=== PATIENT | female | born 1950 | race Hispanic/Latino ===

== ENCOUNTER 2017-05-09 09:40 | Day surgery (SDC) | payer MEDICARE, BC ==
[2017-05-04 12:38] VITALS: BMI 15.4
[2017-05-09 10:15] LABS: ADD MANUAL DIFF? NO
[2017-05-09 10:29] LABS: BASO # 0.04 K/mm3 (0.0-2.0); BASO % 0.5 % (0.0-3.0); EOS % 0.5 % (1.5-5.0); GRAN # 4.39 (1.4-6.5); GRAN % 59.7 % (50.0-68.0); HEMATOCRIT 39.1 % (36.0-48.0); LYMPH # 2.4 (1.2-3.4); LYMPH % 33.1 % (22.0-35.0); MEAN CELL VOLUME 89.7 fL (80.0-105.0); MEAN CORPUSCULAR HEMOGLOBIN 29.8 pg (25.0-35.0); MEAN CORPUSCULAR HGB CONC 33.2 g/dl (31.0-37.0); MEAN PLATELET VOLUME 8.8 fl (7.0-11.0); MONO # 0.5 (0.1-0.6); MONO % 6.2 % (1.0-6.0); PLATELET COUNT 361 10^3/uL (120.0-450.0); RED CELL DISTRIBUTION WIDTH 14.7 % (11.5-14.5); WHITE BLOOD COUNT 7.4 10^3/ul (4.5-11.0)
[2017-05-09 10:37] LABS: INR 1.03 (0.93-1.08); PARTIAL THROMBOPLASTIN TIME 33.9 Seconds (23.7-30.8)
[2017-05-09 10:38] LABS: BLOOD UREA NITROGEN 16 mg/dL (7-21); CALCIUM 9.2 mg/dL (8.4-10.5); CARBON DIOXIDE 26 mmol/L (21-33); CHLORIDE 102 mmol/L (98-107); GFR AFRICAN-AMERICAN > 60; GLUCOSE,RANDOM 87 mg/dL (70-110); POTASSIUM 4.1 mmol/L (3.6-5.0); SODIUM 137 mmol/L (132-148)
--- NOTE | 2017-05-09 10:48 | CP.SDSHP ---
Same Day Surgery H & P - History Proposed Procedure: thyroid Bx. Pre-Op Diagnosis: multiple thyroid nodules. - Previous Medical/Surgical History Pulmonary: Emphysema/COPD, Smoking Endocrine/Metabolic: Thyroid Disease Neuro: Seizure Disorder - Allergies Allergies: Allergies No Known Allergies Allergy (Verified 11/04/16 18:15) - Physical Exam General Appearance: WNL. Vital Signs: Vital Signs 05/09/17 10:25 Temperature 98 F Pulse Rate 72 Respiratory 20 Rate Blood Pressure 161/71 H O2 Sat by Pulse 98 Oximetry Mental Status: Alert & Oriented x3 Neuro: WNL Heart: WNL Lungs: Other (PT HAS DECREASED BREATH SOUNDS BILATERALLY.) - Impression Impression: MULTIPLE THYOD NODULES. - Date & Time Date: 05/09/17 Time: 10:47 Short Stay Discharge - Short Stay Discharge Admitting Diagnosis/Reason for Visit: THYROID NODULE E04.9 Disposition: HOME/ ROUTINE Referrals: Carley Luciano MD [Primary Care Provider] -
[2017-05-09] MEDS ORDERED: Midazolam 2 MG/2 ML VIAL ONE (12:31)
[2017-05-09] MEDS ORDERED: Oxycodone/Acetaminophen 5/325 mg Tab PO PRN (13:58)
[2017-05-09] MEDS ORDERED: Sodium Chloride 0.45% 1,000 ML IV SCH (14:00)
[2017-05-09 15:05] VITALS: PULSE 66; TEMP 98; O2SAT 98
[2017-05-09 15:44] VITALS: BP 155/73; RESP 22
--- NOTE | 2017-05-09 19:16 | US ---
PROCEDURE: Ultrasound-guided right thyroid fine needle aspiration biopsy. CLINICAL HISTORY: Dominant 1.5 cm right thyroid nodule. Evaluate for malignancy. PHYSICIAN(S): Homero Barton MD TECHNIQUE: The relative risks and indications for the procedure were explained to the patient and consent obtained. The patient was placed supine on the stretcher with the neck extended and preliminary sonography of the thyroid performed. This reveal a 1.5 cm heterogeneous nodule at the junction of the isthmus and right thyroid. Additional smaller nodules are seen. The neck was prepped and draped in the usual sterile fashion. Conscious sedation and monitoring were provided throughout the procedure by a nurse. 1% Xylocaine was used to anesthetize the skin and soft tissues at the access site. Three passes with a 22-gauge needle were performed under ultrasound guidance for fine needle aspiration of the 1.5 cm heterogeneous nodule in the right thyroid. The slides were reviewed by pathology and deemed adequate. The patient tolerated the procedure well. IMPRESSION: 1. Ultrasound guided fine needle aspiration of a 1.5 cm heterogeneousnodule at the junction of the isthmus and right thyroid
== END 2017-05-09 15:55 | disposition home or self-care (01) ==
LOC: SDS 09:40
PROVIDERS: ATTEND Radiology Vascular & Interventional Radiology
DX: E04.1 Nontoxic single thyroid nodule (principal)
CPT/HCPCS: 10022; 36415; 80048; 85025; 85610; 85730; 88173; 88305; J2250; J2405; J3010; J7030

== ENCOUNTER 2018-03-28 14:15 | Inpatient (IN) | payer MEDICARE, BC ==
[2018-03-28 14:15] VITALS: BMI 15.4
[2018-03-28] MEDS ORDERED: TraMADol/Apap 37.5/325 mg Tab PO STA (15:45)
--- NOTE | 2018-03-28 15:53 | ED PDOC ---
Arrival/HPI - General Chief Complaint: Upper Extremity Problem/Injury Time Seen by Provider: 03/28/18 14:22 Historian: Patient - History of Present Illness Narrative History of Present Illness (Text): 03/28/18 15:46 This 68 yo female with pmh seizures , presents to this ED c/o left shoulder pain x 3 hours. Patient stated she tripped and hit her left shoulder against a glass jar. Patient denies head injury, neck pain, sob, cp, abdominal pain, syncope, weakness, paresthesias, n/v, or abnormal gait. Time/Duration: Other (see hpi) Quality: Aching Context: Home Past Medical History - Provider Review Nursing Documentation Reviewed: Yes - Tetanus Immunization Tetanus Immunization: Unknown - Cardiac Hx Cardiac Disorders: No - Pulmonary Hx Respiratory Disorders: Yes Hx Chronic Obstructive Pulmonary Disease (COPD): Yes - Neurological Hx Neurological Disorder: Yes Hx Seizures: Yes - HEENT Hx HEENT Disorder: No - Renal Hx Renal Disorder: No - Endocrine/Metabolic Hx Endocrine Disorders: No - Hematological/Oncological Hx Blood Disorders: No - Integumentary Hx Dermatological Disorder: No - Musculoskeletal/Rheumatological Hx Musculoskeletal Disorders: Yes (HX HIP FX) Hx Fractures: Yes - Gastrointestinal Hx Gastrointestinal Disorders: Yes - Genitourinary/Gynecological Hx Genitourinary Disorders: No - Psychiatric Hx Psychophysiologic Disorder: No Hx Emotional Abuse: No Hx Physical Abuse: No Hx Substance Use: No - Surgical History Other/Comment: L HIP - Anesthesia Hx Anesthesia: Yes Hx Anesthesia Reactions: No Hx Malignant Hyperthermia: No - Suicidal Assessment Feels Threatened In Home Enviroment: No Family/Social History - Physician Review Nursing Documentation Reviewed: Yes Family/Social History: Other (noncontributory) Smoking Status: Current Some Days Smoker Hx Alcohol Use: No Hx Substance Use: No Hx Substance Use Treatment: No Allergies/Home Meds Allergies/Adverse Reactions: Allergies No Known Allergies Allergy (Verified 03/28/18 15:20) Home Medications: Home Meds Medication Instructions Recorded Confirmed Lamotrigine [Lamictal] 200 mg PO BID 08/24/12 03/28/18 carBAMazepine [Tegretol] 200 mg PO TID 11/24/15 03/28/18 Review of Systems - Review of Systems Constitutional: Normal. absent: Fatigue, Weight Change, Fevers, Night Sweats Eyes: Normal ENT: Normal Respiratory: Normal Cardiovascular: Normal Gastrointestinal: Normal Genitourinary Female: Normal Musculoskeletal: Other (left shoulder pain, and swelling) Skin: Normal Neurological: Normal Endocrine: Normal Hemo/Lymphatic: Normal Psychiatric: Normal Physical Exam Vital Signs Temp Pulse Resp BP Pulse Ox 03/28/18 15:20 98.9 F 95 H 18 100/67 96 Temperature: Afebrile Blood Pressure: Normal Pulse: Regular Respiratory Rate: Normal Appearance: Positive for: Well-Appearing, Non-Toxic, Comfortable Pain Distress: None Mental Status: Positive for: Alert and Oriented X 3 - Systems Exam Head: Present: Atraumatic, Normocephalic, Other (No raccoon sign. No robison sign) Pupils: Present: PERRL, Other (no hyphema) Extroacular Muscles: Present: EOMI Conjunctiva: Present: Normal Ears: Present: Normal, NORMAL TM, Other (no hemotympanum) Mouth: Present: Moist Mucous Membranes Pharnyx: Present: Normal. No: ERYTHEMA, EXUDATE, TONSILS ENLARGED Neck: Present: Normal Range of Motion. No: Meningeal Signs, Paraspinal Tenderness, Lymphadenopathy Respiratory/Chest: Present: Clear to Auscultation, Good Air Exchange. No: Respiratory Distress, Accessory Muscle Use Cardiovascular: Present: Regular Rate and Rhythm, Normal S1, S2. No: Murmurs Abdomen: No: Tenderness, Distention, Peritoneal Signs Back: Present: Normal Inspection. No: CVA Tenderness Upper Extremity: Present: NORMAL PULSES, Neurovascularly Intact, Capillary Refill < 2s, Other ((+) left prox. humerus is mild tendern and swollen.). No: Cyanosis, Edema, Normal ROM (decreased ROM due to pain) Lower Extremity: Present: Normal Inspection, Normal ROM, Neurovascularly Intact , Capillary Refill < 2 s. No: Edema Neurological: Present: GCS=15, CN II-XII Intact, Speech Normal, Motor Func Grossly Intact, Normal Sensory Function, Normal Cerebellar Funct, Gait Normal, Memory Normal Skin: Present: Warm, Dry, Normal Color. No: Rashes Psychiatric: Present: Alert, Oriented x 3, Normal Insight, Normal Concentration Medical Decision Making ED Course and Treatment: 03/28/18 16:[address] Hedrick, orthopedist, who recommended admission. He also requested to have Neurology clearance for surgery due to Hx. seizures. 03/28/18 16:49 Dr. Baumann spoke with SELENE Delgadillo regarding humerus fracture, and Dr. Hedrick recommendation for surgery. 03/28/18 18:34 Dr. Hedrick recommended NPO after BKF tomorrow morning Re-evaluation Time: 16:51 Reassessment Condition: Re-examined, Improving,but remains with symptoms - EKG Interpretation Interpreted by ED Physician: Yes (NSR @ [address] changes) Comparison: No previous EKG avail. - Medication Orders Current Medication Orders: Discontinued Medications Tramadol/Acetaminophen (Ultracet 37.5/325 Mg) 1 tab PO STAT STA Stop: 03/28/18 15:46 Last Admin: 03/28/18 15:54 Dose: 1 tab MAR Pain Assessment Document 03/28/18 15:54 OCS (Rec: 03/28/18 15:55 OCS [id number]) Pain Reassessment Is this a pain reassessment? Yes Sleep Is patient sleeping during reassessment? No Presence of Pain Presence of Pain Yes Pain Scale Used Pain Scale Used Numeric Location Left, Right or Bilateral Left Upper or Lower Upper Pain Location Body Site Arm Description Description Constant Intensity of Pain at present 10 Aggravating Factors ADL's Disposition/Present on Arrival - Present on Arrival Any Indicators Present on Arrival: No History of DVT/PE: No History of Uncontrolled Diabetes: No Urinary Catheter: No History of Decub. Ulcer: No History Surgical Site Infection Following: None - Disposition Have Diagnosis and Disposition been Completed?: Yes Diagnosis: Closed left humeral fracture Disposition: HOSPITALIZED Disposition Time: 16:51 Condition: STABLE
--- NOTE | 2018-03-28 16:36 | RAD ---
PROCEDURE: Radiographs of the Left Shoulder HISTORY: pain s/p fall COMPARISON: No prior. FINDINGS: BONES: Impacted fracture at the junction of the left humeral head and neck. JOINTS: Preservation of glenohumeral relationship. SOFT TISSUES: Normal. OTHER FINDINGS: None. IMPRESSION: Acute impacted fracture proximal left humerus. Concordant results with the preliminary interpretation rendered by the emergency department physician procedure.
[2018-03-28 17:43] LABS: BASO # 0.02 K/mm3 (0.0-2.0); BASO % 0.1 % (0.0-3.0); GRAN # 16.94 (1.4-6.5); GRAN % 87.1 % (50.0-68.0); LYMPH # 1.5 (1.2-3.4); LYMPH % 7.9 % (22.0-35.0); MEAN CELL VOLUME 88.2 fl (80.0-105.0); MEAN CORPUSCULAR HGB CONC 33.9 g/dl (31.0-37.0); MEAN PLATELET VOLUME 8.4 fl (7.0-11.0); MONO % 4.9 % (1.0-6.0); RBC 4.34 10^6/uL (3.5-6.1); RED CELL DISTRIBUTION WIDTH 13.4 % (11.5-14.5); WHITE BLOOD COUNT 19.5 10^3/ul (4.5-11.0)
[2018-03-28 17:53] LABS: ALB/GLOB RATIO 1.5 (1.1-1.8); ALBUMIN 4.4 g/dL (3.0-4.8); ALT/SGPT 27 U/L (7-56); AST/SGOT 41 U/L (14-36); BLOOD UREA NITROGEN 20 mg/dL (7-21); CALCIUM 9.2 mg/dL (8.4-10.5); GFR AFRICAN-AMERICAN > 60; GFR NON-AFRICAN AMERICAN > 60
[2018-03-28 18:10] LABS: PROTHROMBIN TIME 12.1 SECONDS (9.4-12.5)
[2018-03-28 18:11] LABS: INR 1.06 (0.93-1.08)
--- NOTE | 2018-03-28 18:36 | RAD ---
HISTORY: admission COMPARISON: 12/17/2016 FINDINGS: LUNGS: No active pulmonary disease. PLEURA: No significant pleural effusion identified, no pneumothorax apparent. CARDIOVASCULAR: Normal. OSSEOUS STRUCTURES: Left humeral neck fracture, displaced. VISUALIZED UPPER ABDOMEN: Normal. OTHER FINDINGS: None. IMPRESSION: Displaced left humeral neck fracture.
--- NOTE | 2018-03-28 18:54 | CT ---
CT left shoulder History: Left proximal humeral fracture Comparison: X-ray dated 03/28/2018 Technique: Multiple contiguous axial images were performed through left shoulder without the use of intravenous contrast. Subsequently, sagittal coronal reformatted images were obtained. This CT exam was performed using one or more of the following dose reduction techniques: Automated exposure control, adjustment of the mA and/or kV according to patient size, and/or use of iterative reconstruction technique. Findings: Again identified is a prominent fracture deformity through the proximal left humerus at the level of the neck. 2.3 centimeter medial sided distraction of the distal fracture fragment. There is impaction at the lateral aspect of the fracture site of the distal fracture fragment. Prominent comminuted fracture fragments are noted. Question mild subluxation of the humeral head in relationship to the bony glenoid. If there is concern for pathologic fracture, correlation with MRI may be helpful. Small 3-4 millimeter rounded ossific density at the anterior superior bony glenoid which may represent a small avulsion fragment. Acromioclavicular joint space appears preserved. Incidentally noted is a prominent 1.4 centimeter nodule/lesion seen in the superior aspect of the left lower lobe of the lung on series 3, image 44. This is of uncertain clinical etiology. Underlying neoplasm cannot be excluded. Correlation with chest CT and/or PET-CT would be helpful for further evaluation of this lesion. Emphysematous changes in the lung solraes. Impression: 1. Incidentally noted is a prominent 1.4 centimeter nodule/lesion seen in the superior aspect of the left lower lobe of the lung on series 3, image 44. This is of uncertain clinical etiology. Underlying neoplasm cannot be excluded. Correlation with chest CT and/or PET-CT would be helpful for further evaluation of this lesion. 2. Again identified is a prominent fracture deformity through the proximal left humerus at the level of the neck. 2.3 centimeter medial sided distraction of the distal fracture fragment. There is impaction at the lateral aspect of the fracture site of the distal fracture fragment. Prominent comminuted fracture fragments are noted. Question mild subluxation of the humeral head in relationship to the bony glenoid. If there is concern for pathologic fracture, correlation with MRI may be helpful. 3. Small 3-4 millimeter rounded ossific density at the anterior superior bony glenoid which may represent a small avulsion fragment.
[2018-03-28] MEDS ORDERED: Iohexol 350 MG/100 ML VIAL ONE (23:30)
[2018-03-28 23:53] LABS: BASO # 0.01 K/mm3 (0.0-2.0); BASO % 0.1 % (0.0-3.0); EOS % 0.1 % (1.5-5.0); GRAN # 9.92 (1.4-6.5); GRAN % 79.7 % (50.0-68.0); HEMOGLOBIN 12.3 g/dL (12.0-16.0); LYMPH # 1.5 (1.2-3.4); LYMPH % 12.4 % (22.0-35.0); MEAN CELL VOLUME 89.1 fl (80.0-105.0); MEAN CORPUSCULAR HEMOGLOBIN 29.9 pg (25.0-35.0); MEAN CORPUSCULAR HGB CONC 33.5 g/dl (31.0-37.0); MEAN PLATELET VOLUME 8.6 fl (7.0-11.0); MONO % 7.7 % (1.0-6.0); RBC 4.12 10^6/uL (3.5-6.1); RED CELL DISTRIBUTION WIDTH 13.5 % (11.5-14.5); WHITE BLOOD COUNT 12.4 10^3/ul (4.5-11.0)
[2018-03-29 00:02] LABS: ALB/GLOB RATIO 1.4 (1.1-1.8); ALBUMIN 4.2 g/dL (3.0-4.8); ALT/SGPT 27 U/L (7-56); AST/SGOT 40 U/L (14-36); BLOOD UREA NITROGEN 26 mg/dL (7-21); CALCIUM 8.9 mg/dL (8.4-10.5); GFR AFRICAN-AMERICAN > 60; GFR NON-AFRICAN AMERICAN > 60; HDL CHOLESTEROL 74 mg/dL (29-60)
--- NOTE | 2018-03-29 00:03 | CT ---
EXAM: CT Head Without Intravenous Contrast EXAM DATE/TIME: 03/28/2018 11:18 PM CLINICAL HISTORY: 68 years old, female; Signs and symptoms; Weakness, extremity; Additional info: Code stroke TECHNIQUE: Axial computed tomography images of the head/brain without intravenous contrast. All CT scans at this facility use one or more dose reduction techniques, viz.: automated exposure control; ma/kV adjustment per patient size (including targeted exams where dose is matched to indication; i.e. head); or iterative reconstruction technique. Coronal and sagittal reformatted images were created and reviewed. COMPARISON: Prior head CT of 2016-11-04 20:55 FINDINGS: BRAIN: Areas of hypodensity in the white matter bilaterally, nonspecific in appearance, but most likely representing chronic small vessel ischemic changes, in a patient of this age. No significant acute abnormality identified. No acute hemorrhage seen within the brain. No acute extra-axial fluid collections visualized. No evidence of significant mass effect within the brain. No CT findings to suggest an acute, large territorial infarct, however, small or early acute infarcts may not be visible on CT. VENTRICLES: No evidence of significant hydrocephalus. BONES/JOINTS: No acute fractures or other acute bony abnormality noted. SOFT TISSUES: No acute abnormality of the visualized soft tissues is seen. VASCULATURE: Atherosclerotic calcification. SINUSES: Visualized paranasal sinuses appear clear. MASTOID AIR CELLS: Mastoid air cells appear clear. IMPRESSION: - No acute findings seen within the brain. - See above for remaining findings.
[2018-03-29 00:04] LABS: INR 1.06 (0.93-1.08); PARTIAL THROMBOPLASTIN TIME 32.5 Seconds (25.1-36.5); PROTHROMBIN TIME 12.1 SECONDS (9.4-12.5)
[2018-03-29 00:09] LABS: LDL CHOLESTEROL 100 mg/dL (0-129)
[2018-03-29 00:11] LABS: TROPONIN I < 0.01 ng/mL
[2018-03-29] MEDS ORDERED: HYDROmorphone 0.5 mg/0.5 ml ISec IVP PRN (00:36)
[2018-03-29] MEDS ORDERED: Naloxone 0.4 mg/ml Inj (Adult) IVP ONE (00:41)
--- NOTE | 2018-03-29 01:10 | CT ---
EXAM: CT Angiography Head With Intravenous Contrast CLINICAL HISTORY: The patient age is 68 years old and is female; Signs and symptoms; Weakness; Additional info: Code stroke [facility] and description[facility] code stroke TECHNIQUE: Axial computed tomographic angiography images of the head with intravenous contrast using CT angiography protocol. All CT scans at this facility use one or more dose reduction techniques, viz.: automated exposure control; ma/kV adjustment per patient size (including targeted exams where dose is matched to indication; i.e. head); or iterative reconstruction technique. MIP reconstructed images were created and reviewed. CONTRAST: 96 mL of OMNI 350 administered intravenously. COMPARISON: CT - ANGIO CHEST PE PROTOCOL 2016-12-17 18:47 FINDINGS: Right internal carotid artery: There is atherosclerosis of the bilateral internal carotid arteries, with approximately 50% stenosis of the bilateral cavernous internal carotid arteries. No aneurysm. Right anterior cerebral artery: No occlusion or significant stenosis. No aneurysm. Right middle cerebral artery: At the right MCA trifurcation, there is a small vascular projection measuring 0.2 x 0.1 cm, suggestive of an infundibulum or small aneurysm. No occlusion or significant stenosis. Right posterior cerebral artery: No occlusion or significant stenosis. No aneurysm. Right vertebral artery: There is atherosclerosis and approximately 50% stenosis of the distal right vertebral artery. Left internal carotid artery: See above. Left anterior cerebral artery: No occlusion or significant stenosis. No aneurysm. Left middle cerebral artery: No occlusion or significant stenosis. No aneurysm. Left posterior cerebral artery: No occlusion or significant stenosis. No aneurysm. Left vertebral artery: There is mild atherosclerosis of the distal left vertebral artery, without hemodynamically significant stenosis. Basilar artery: No significant stenosis. No occlusion. No aneurysm. IMPRESSION: 1. There is atherosclerosis and approximately 50% stenosis of the distal right vertebral artery. 2. There is atherosclerosis of the bilateral internal carotid arteries, with approximately 50% stenosis of the bilateral cavernous internal carotid arteries. 3. At the right MCA trifurcation, there is a small vascular projection measuring 0.2 x 0.1 cm, suggestive of an infundibulum or small aneurysm. A follow-up CTA is recommended. 4. Additional findings described above. EXAM: CT Angiography Neck With Intravenous Contrast EXAM DATE/TIME: 03/28/2018 11:17 PM CLINICAL HISTORY: The patient age is 68 years old and is female; Signs and symptoms; Weakness; Additional info: Code stroke [facility] and [facility] code stroke TECHNIQUE: Axial computed tomographic angiography images of the neck with intravenous contrast using CT angiography protocol. All CT scans at this facility use one or more dose reduction techniques, viz.: automated exposure control; ma/kV adjustment per patient size (including targeted exams where dose is matched to indication; i.e. head); or iterative reconstruction technique. MIP reconstructed images were created and reviewed. CONTRAST: 96 mL of OMNI 350 administered intravenously. COMPARISON: CT - ANGIO CHEST PE PROTOCOL 2016-12-17 18:47 FINDINGS: VASCULATURE: Right common carotid artery: There is mild stenosis of the distal right common carotid artery. No dissection or occlusion. Right internal carotid artery: There is atherosclerosis of the right carotid bifurcation, with approximately 40% stenosis of the proximal right internal carotid artery. Right external carotid artery: No occlusion. Right vertebral artery: Venous enhancement limits evaluation of the bilateral vertebral arteries, without significant stenosis or occlusion. Left common carotid artery: There is mild stenosis of the distal left common carotid artery. Left internal carotid artery: There is atherosclerosis of the proximal left internal carotid artery, with approximately 60% stenosis. No dissection or occlusion. Left external carotid artery: No occlusion. Left vertebral artery: See above. Other vasculature: There is atherosclerosis of the aortic arch. NECK: Bones/joints: Spondylosis is identified at multiple cervical levels. Thyroid: There is heterogeneous density of the thyroid gland, with multiple subcentimeter hypodense nodules or cysts. Lung apices: Within the superior segment of the left lower lobe, there is a 1.2 cm spiculated nodule. Malignancy is the diagnosis of exclusion. Centrilobular emphysematous changes are identified within the lungs. Within the right upper lobe on series 4 image 144, there is a 6 mm nodule. A few additional small nodules are identified within the lungs. CAROTID STENOSIS REFERENCE USING NASCET CRITERIA: % ICA stenosis = (1 - narrowest ICA diameter/diameter of distal cervical ICA) x 100. Mild - <50% stenosis. Moderate - 50-69% stenosis. Severe - 70-94% stenosis. Near occlusion - 95-99% stenosis. Occluded - 100% stenosis. IMPRESSION: 1. There is atherosclerosis of the proximal left internal carotid artery, with approximately 60% stenosis. There is mild stenosis of the distal left common carotid artery. 2. There is atherosclerosis of the right carotid bifurcation, with approximately 40% stenosis of the proximal right internal carotid artery. There is mild stenosis of the distal right common carotid artery. 3. Within the superior segment of the left lower lobe, there is a 1.2 cm spiculated nodule. Malignancy is the diagnosis of exclusion. Additional lung nodules are visualized. PET/CT is recommended. 4. There is heterogeneous density of the thyroid gland, with multiple subcentimeter hypodense nodules or cysts. 5. Incidental/non-acute findings are described above.
[2018-03-29 01:31] LABS: ARTERIAL BLOOD GAS HCO3 26.6 mmol/L (21-28); ARTERIAL BLOOD GAS PCO2 47 mm/Hg (35-45); ARTERIAL BLOOD GAS PH 7.36 (7.35-7.45)
--- NOTE | 2018-03-29 02:40 | PCM.RRT ---
<Alexey Nuñez - Last Filed: 03/29/18 04:57> SENIOR PROJECT ENGINEER Nurse Assessment - Situation Date: 03/28/18 Time SENIOR PROJECT ENGINEER was called: 23:11 SENIOR PROJECT ENGINEER Responder Arrival Time: 23:12 SENIOR PROJECT ENGINEER Location:: [address] [place] [address] Room Number: [id number] SENIOR PROJECT ENGINEER Reason for Call: Change in Mental Status SENIOR PROJECT ENGINEER Called By: Other Disciplines - IV IV Inserted during SENIOR PROJECT ENGINEER?: No - Respiratory Oxygen Delivery Method: Nasal Cannula @L/min Oxygen Flow Rate: 2 Received Nebulizer Treatments:: No Was the Patient Ventilated with Bag/Mask 100% O2?: No Secretions Suctioned?: No Was the Patient Intubated?: No Was the Patient Placed on a Ventilator?: No - Diagnostic Test Ordered EKG: Yes Chest X-Ray: Yes CT Scan: Yes (head/neck) - Stat Labs Ordered SENIOR PROJECT ENGINEER Stat Labs Ordered: CBC, PT/PTT, TROPONIN, ABG CPR started during SENIOR PROJECT ENGINEER?: No - Vital Signs Vital Sign: Rapid Response Vital Sign Blood Pressure 183/82 Pulse Rate 80 Respiratory Rate 18 Temperature 98.9 F Oxygen Saturation 98 - Finger Stick Blood Glucose Finger Stick Blood Glucose: 143 - [place] Coma Scale Coma Scale Eye Opening: To pain Coma Scale Motor: Movement to pain stimulus Coma Scale Verbal: Inappropriate words - Time SENIOR PROJECT ENGINEER Ended Time SENIOR PROJECT ENGINEER Ended: 23:30 - Vital Signs at end of SENIOR PROJECT ENGINEER Vital Signs at end of SENIOR PROJECT ENGINEER: Rapid Response End Vital Sign Blood Pressure 133/75 Pulse Rate 80 Respiratory Rate 18 Temperature 98.9 F O2 Sat by Pulse Oximetry 98 - Recommendations Notifications: Attending Physician, Consultations I.Reason for SENIOR PROJECT ENGINEER - A) Acute Change in Patient: (Select all that apply): Staff member or family is worried about patient Subjective: RR was called on patient for unresponsiveness. Patient seen and evaluated in room. Patient noted to be somnolent with minimal spontaneous movement of all four extremities, limited response to verbal stimuli and incomprehensible sounds. Vital signs were taken and noted to be BP 183/82, HR 87, O2 96% on 3LO2 , and temperature of 98.9F. Patient was noted to have poor response to initial questioning and examination and CODE STROKE was called on patient for new onset AMS. Sternal rub was provided with improvement in mentation. Patient was noted to be more alert and awake. Able to respond to verbal stimuli with comprehensible communication. Patient VSS continued to be stable. EKG was preformed showing NSR, rate of 83 bpm, T wave inversions in V1, V2, without ST segment elevation or depression. Head CT was ordered which resulted as negative for stroke per Vrad report. Blood was drawn and CBC, CMP, Ammonia, ABG with shock panel, blood cultures were sent to lab. Patient was given aspirin 81mg, carbamazepine, lamotrigine, and narcan. Patient when asked was alert and oriented x3 s/p sternal rub. Patient denied chest pain, shortness of breath, abodminal pain, chills, weakness, focal deficits. Attempts were made to contact primary care physician, message left with service. - Neurological Status (Select all that apply): Alert - Respiratory Oxygen Delivery Method: Nasal Cannula @L/min Oxygen Flow Rate: 2 - Head Head Exam: ATRAUMATIC, NORMAL INSPECTION, NORMOCEPHALIC - Respiratory Exam Respiratory Exam: Clear to Ausculation Bilateral, NORMAL BREATHING PATTERN. absent: Rhonchi, Wheezes - Cardiovascular Exam Cardiovascular Exam: REGULAR RHYTHM, +S1, +S2 - GI/Abdominal Exam GI & Abdominal Exam: Soft, Normal Bowel Sounds. absent: Tenderness - Neurological Exam Neurological Exam: Alert, Awake, Oriented x3 - Extremities Exam Extremities Exam: absent: Calf Tenderness, Pedal Edema Plan - Assessment of Findings&Treatment Plan 68 yo female with past medical history of seizures on anti-epileptic therapy, not on medication while in hospital, found to have limited responsiveness to nurse. RR was called. Patient was evaluated and noted to have improved mentation s/p sternal rub. Patient initially drowsy, poor verbal, moving all extremities spontaneously. - Head CT: negative for acute stroke - NO antithrombotic therapy provided due to negative Head CT results and resolution of symptoms - EKG unremarkable - CBC, CMP, Ammonia, ABG shock panel, blood culture - ASA 81 - Restart anti-epileptic therapy from home, lamictal and carbamazepine - Narcan .4mg - Neuro checks Q4h - Primary care physician contacted and message left with service Impression: subclinical seizure v. possible TIA NIHSS Scale ([place]) Time Performed: 23:15 NIHSS Stroke Scale - Date/Time Evaluation Performed Date Performed: 03/28/18 Time Performed: 23:15 - How Severe is the Stoke Visual: 3=Bilateral Facial: 0=Normal Motor Arm - Left: NA - Amputation, joint fusion (left arm fracture, immobilized in orthopedic sling) Motor Arm - Right: 4=No movement Motor Leg - Left: 0=No drift Motor Leg - Right: 0=No drift Limb Ataxia: 2=Present both Sensory: 2=Severe to total loss Best Language: 3=Mute Dysarthia: 2=Severe, near unintelligible or worse Extinction & Inattention (Neglect): 2=Profound neglect(does not recognize own hand or orients to one side) Severity Of Stroke: 16-20=Moderate/Severe Stroke <Meaghan Alas - Last Filed: 03/29/18 05:15> SENIOR PROJECT ENGINEER Nurse Assessment - Vital Signs Vital Sign: Rapid Response Vital Sign Blood Pressure 183/82 Pulse Rate 80 Respiratory Rate 18 Temperature 98.9 F Oxygen Saturation 98 - Vital Signs at end of SENIOR PROJECT ENGINEER Vital Signs at end of SENIOR PROJECT ENGINEER: Rapid Response End Vital Sign Blood Pressure 133/75 Pulse Rate 80 Respiratory Rate 18 Temperature 98.9 F O2 Sat by Pulse Oximetry 98 Attending/Attestation - Attestation I have personally seen and examined this patient.: Yes I have fully participated in the care of the patient.: Yes I have reviewed all pertinent clinical information, including history, physical exam and plan: Yes Notes (Text): 03/29/18 05:13 Agree with documentation and orders.
[2018-03-29 05:10] LABS: URINE APPEARANCE CLEAR (CLEAR); URINE BILIRUBIN NEGATIVE (NEGATIVE); URINE BLOOD NEGATIVE (NEGATIVE); URINE COLOR YELLOW (YELLOW); URINE GLUCOSE (UA) NEGATIVE (NEGATIVE); URINE LEUKOCYTE ESTERASE NEGATIVE Leu/uL (NEGATIVE); URINE PROTEIN 100 mg/dL (<30 mg/dL); URINE UROBILINOGEN 0.2 E.U./dL (<1 E.U./dL)
[2018-03-29 05:59] LABS: URINE EPITHELIAL CELLS 0 - 2 /hpf (0-5); URINE RBC 0 - 2 /hpf (0-2); URINE WBC 0 - 2 /hpf (0-6)
[2018-03-29 06:47] LABS: BARBITURATES, UR NEGATIVE (NEGATIVE); BENZODIAZEPINES, UR NEGATIVE (NEGATIVE); OPIATES, UR NEGATIVE (NEGATIVE); PHENCYCLIDINE, UR NEGATIVE (NEGATIVE)
[2018-03-29] MEDS: Albuterol-Ipratrop 3 mg / 0.5 (3 ml) UD IH SCH ×2 (07:18→13:28)
--- NOTE | 2018-03-29 08:16 | RAD ---
PROCEDURE: CHEST RADIOGRAPH, 1 VIEW HISTORY: Code Stroke COMPARISON: March 28, 2018. Time of the most recent examination: 18:28 FINDINGS: LUNGS: Interstitial lung disease, mild. PLEURA: No pneumothorax or pleural fluid seen. CARDIOVASCULAR: Normal. OSSEOUS STRUCTURES: Go impacted distracted proximal right humeral fracture. No significant abnormalities. VISUALIZED UPPER ABDOMEN: Normal. OTHER FINDINGS: None. IMPRESSION: No active disease.No significant interval change compared to the prior examination(s).
--- NOTE | 2018-03-29 08:26 | CARD ---
APPROVED REPORT EKG Measurement Heart [id number] <Conclusion> Normal sinus rhythm NSSTW changes PRWP V 1 - 6
[2018-03-29] MEDS ORDERED: levETIRAcetam 1,000 MG in Sodium Chloride 0.9% 100 ML IV ONE (11:45)
[2018-03-29 12:38] LABS: HEMOGLOBIN 11.6 g/dL (12.0-16.0); MEAN CELL VOLUME 89.1 fl (80.0-105.0); MEAN CORPUSCULAR HEMOGLOBIN 29.3 pg (25.0-35.0); MEAN CORPUSCULAR HGB CONC 32.9 g/dl (31.0-37.0); MEAN PLATELET VOLUME 8.7 fl (7.0-11.0); RBC 3.96 10^6/uL (3.5-6.1); RED CELL DISTRIBUTION WIDTH 13.5 % (11.5-14.5); WHITE BLOOD COUNT 11.2 10^3/ul (4.5-11.0)
[2018-03-29 12:51] LABS: ALB/GLOB RATIO 1.4 (1.1-1.8); ALBUMIN 3.9 g/dL (3.0-4.8); ALT/SGPT 32 U/L (7-56); AST/SGOT 36 U/L (14-36); BLOOD UREA NITROGEN 32 mg/dL (7-21); CALCIUM 8.8 mg/dL (8.4-10.5); GFR AFRICAN-AMERICAN > 60; GFR NON-AFRICAN AMERICAN > 60
--- NOTE | 2018-03-29 14:05 | CARD ---
APPROVED REPORT EKG Measurement Heart [id number] <Conclusion> Normal sinus rhythm PRWP LVH by voltage
--- NOTE | 2018-03-29 15:30 | HP ---
The patient is a 68-year-old female. CHIEF COMPLAINT: Fall, pain in the left shoulder. HISTORY OF PRESENT ILLNESS: Ms. Leann Helm is a 68-year-old my private patient with past medical history of seizures, stable, getting treatment from Dr. Soliman, came to the emergency room complaining of left shoulder pain from 3 days. Patient stated that she tripped and hit her left shoulder against a glass jar. Patient denies any head injury. No neck pain. No shortness of breath. No chest pain. No abdominal pain. No syncopal, weakness, paresthesia, nausea or vomiting. Abnormal gait, but range of motion on the left shoulder is decreased. PAST MEDICAL HISTORY: COPD, seizures, history of fractures. FAMILY HISTORY: Father and mother, noncontributory. HABITS: Currently smoking. Alcohol, no. Substance abuse, no. ALLERGIES: PATIENT IS NOT ALLERGIC WITH ANY MEDICATIONS. HOME MEDICATIONS: Lamictal, Tegretol and inhalers. REVIEW OF SYSTEMS: Patient was seen and examined on the bedside in the emergency room. No weight change. No night sweats. No fatigue. No blurring of vision. No nasal breathing or shortness of breath. No chest pain. No palpitation. Left shoulder pain and swelling. Range of motion is decreased. No fever. No chills. PHYSICAL EXAMINATION: VITAL SIGNS: Temperature 98.9, pulse 95, respiratory rate 18, blood pressure 100/67, pulse oximetry 96. HEENT: Head normocephalic, atraumatic. Eyes PERRLA. Extraocular muscles intact. Conjunctivae clear. Nose patent. Mucous membranes moist. NECK: Supple. No carotid bruit, JVD or thyromegaly. CHEST: Bilaterally symmetrical. HEART: S1, S2 positive. LUNGS: Clear to auscultation. ABDOMEN: Soft, nontender. No organomegaly. No distension. EXTREMITIES: Normal pulses. Left shoulder range of motion decreased. Humerus is mildly tender and swollen. No cyanosis. No edema. LABORATORY DATA: White blood cell is 12.4 and on admission, it was 19.4; hemoglobin 12.3, hematocrit 36.7, platelets 380. Sodium 139, potassium 4, BUN 20, creatinine 0.8 and glucose 143. ASSESSMENT AND PLAN: Ms. Leann Helm is a 68-year-old lady with leukocytosis, blood urea nitrogen, hyperglycemia, hyperphosphatemia, abnormal liver function test and hypercholesterolemia, came with fall, mechanical, left shoulder pain. CAT scan of the head done, reviewed by me. No acute findings seen within the brain. Chest x-ray done. Head and neck CT done, results are pending. Upper extremity CT done. Shoulder x-ray done. A 1.4 cm nodule/lesion seen in the superior aspect of the left lower lobe of the lung, underlying neoplasm cannot be excluded, especially patient has a history of heavy smoking for longtime. Chest CT or PET scan is needed for further evaluation. There is a prominent fracture deformity through the proximal left humerus at the level of the neck, 2 to 3 cm medial-sided destruction of the distal fracture fragment. There is at the lateral aspect of the fracture site of the distal femur fragment, prominent comminuted fracture fragments are noted, question mild subluxation of the humeral head relationship to the bony glenoid. If there is a concern of orthopedic fracture, correlation with MRI will necessary, small 3 to 4 cm rounded ossified density at the anterior superior bony glenoid, which looks avulsive fragments. We call Orthopedic consult. Neurologist is on the case. We will restart old medication. Gastrointestinal and deep vein thrombosis prophylaxis. Repeat labs. We will follow up. Carley Luciano MD MTDD
--- NOTE | 2018-03-29 15:48 | CP.PCM.CON ---
History of Present Illness - History of Present Illness History of Present Illness: MICU Consult Note Reason for consult: seizure episode HPI Patient is 68yo female with PMHx of COPD, Smoking, Seizure disorder, cachexia, presents to the hospital L humerus fracture. Pt fell and hit her arm against a glass jar. Pt was admitted to the floor. Last night patient had an episode of altered mental status, NO tonic-clonic activity noted, AMS self resolved, CTH negative. This morning as per nursing staff patient had an episode of seizure activity, given Ativan 1mg IV. Currently the patient is AAOx3, NAD, comofrtable HD stable, protecting airway. PMHx as above PSHx as above Meds as per EMR ROS as above FHx NC Social smokes 1 pk per day, denies etoh, drug use Review of Systems - Review of Systems Review of Systems: as per HPI Past Patient History - Tetanus Immunizations Tetanus Immunization: Unknown - Past Medical History & Family History Past Medical History?: Yes - Past Social History Smoking Status: Heavy Smoker > 10 Cigarettes Daily - CARDIAC Hx Cardiac Disorders: No - PULMONARY Hx Respiratory Disorders: Yes Hx Chronic Obstructive Pulmonary Disease (COPD): Yes - NEUROLOGICAL Hx Neurological Disorder: Yes Hx Seizures: Yes - HEENT Hx HEENT Problems: No - RENAL Hx Chronic Kidney Disease: No - ENDOCRINE/METABOLIC Hx Endocrine Disorders: No - HEMATOLOGICAL/ONCOLOGICAL Hx Blood Disorders: No - INTEGUMENTARY Hx Dermatological Problems: No - MUSCULOSKELETAL/RHEUMATOLOGICAL Hx Musculoskeletal Disorders: Yes (HX HIP FX) Hx Falls: Yes Hx Fractures: Yes - GASTROINTESTINAL Hx Gastrointestinal Disorders: Yes - GENITOURINARY/GYNECOLOGICAL Hx Genitourinary Disorders: No - PSYCHIATRIC Hx Psychophysiologic Disorder: No Hx Emotional Abuse: No Hx Physical Abuse: No - SURGICAL HISTORY Other/Comment: L HIP - ANESTHESIA Hx Anesthesia: Yes Hx Anesthesia Reactions: No Hx Malignant Hyperthermia: No Meds Allergies/Adverse Reactions: Allergies Allergy/AdvReac Type Severity Reaction Status Date / Time No Known Allergies Allergy Verified 03/28/18 15:20 - Medications Medications: Current Medications Acetaminophen (Tylenol 325mg Tab) 650 mg PO Q4H PRN PRN Reason: Fever >100.4 F Acetaminophen (Tylenol 325mg Tab) 650 mg PO Q4H PRN PRN Reason: Pain, moderate (4-7) Albuterol/Ipratropium (Duoneb 3 Mg/0.5 Mg (3 Ml) Ud) 3 ml IH [id number] [facility] Last Admin: 03/29/18 13:28 Dose: 3 ml Aspirin (Aspirin Chewable) 81 mg PO DAILY [facility] Last Admin: 03/29/18 11:12 Dose: 81 mg Carbamazepine (Tegretol) 200 mg PO TID SONAL PRN Reason: Protocol Last Admin: 03/29/18 10:29 Dose: 200 mg Famotidine (Pepcid) 20 mg PO HS SONAL Hydromorphone HCl (Dilaudid) 0.5 mg IVP Q4H PRN PRN Reason: Pain, Mild (1-3) Levetiracetam (Keppra 500mg Ivpb) 500 mg in 100 mls @ 460 mls/hr IVPB Q12 SONAL Lamotrigine (Lamictal) 200 mg PO BID [facility] Last Admin: 03/29/18 10:29 Dose: 200 mg Lorazepam (Ativan) 0.5 mg IVP Q6H PRN; Protocol PRN Reason: Seizure activity Ondansetron HCl (Zofran Inj) 4 mg IVP Q6 PRN PRN Reason: Nausea/Vomiting Physical Exam - Constitutional Appears: Non-toxic, No Acute Distress, Older Than Stated Age, Cachectic - Eye Exam Eye Exam: Normal appearance - ENT Exam ENT Exam: Mucous Membranes Moist - Respiratory Exam Respiratory Exam: Clear to Auscultation Bilateral, NORMAL BREATHING PATTERN - Cardiovascular Exam Cardiovascular Exam: REGULAR RHYTHM, +S1, +S2 - GI/Abdominal Exam GI & Abdominal Exam: Normal Bowel Sounds, Soft - Extremities Exam Extremities exam: Positive for: normal inspection - Neurological Exam Neurological exam: Alert, CN II-XII Intact, Oriented x3 - Skin Skin Exam: Normal Color, Warm Results - Vital Signs Recent Vital Signs: Last Vital Signs Temp 98.9 F 03/29/18 06:00 Pulse 88 03/29/18 07:21 Resp 20 03/29/18 06:00 BP 114/68 03/29/18 06:00 Pulse Ox 96 03/29/18 06:00 - Labs Result Diagrams: 03/29/18 12:10 03/29/18 12:10 Labs: Laboratory Results - last 24 hr 03/28/18 03/28/18 03/28/18 17:20 17:20 17:20 WBC 19.5 H D RBC 4.34 Hgb 13.0 Hct 38.3 MCV 88.2 MCH 30.0 MCHC 33.9 RDW 13.4 Plt Count 378 MPV 8.4 Gran % 87.1 H Lymph % (Auto) 7.9 L [place] % (Auto) 4.9 Eos % (Auto) 0.0 L Baso % (Auto) 0.1 Gran # 16.94 H Lymph # (Auto) 1.5 [place] # (Auto) 1.0 H Eos # (Auto) 0.0 Baso # (Auto) 0.02 PT 12.1 INR 1.06 APTT 34.0 pCO2 pO2 HCO3 ABG pH ABG Total CO2 ABG O2 Saturation ABG Base Excess ABG Potassium Glucose Lactate FiO2 Sodium Potassium Chloride Carbon Dioxide Anion Gap BUN Creatinine Est GFR ( Amer) Est GFR (Non-Af Amer) POC Glucose (mg/dL) Random Glucose Lactic Acid Calcium Phosphorus Magnesium Total Bilirubin AST ALT Alkaline Phosphatase Ammonia Troponin I Total Protein Albumin Globulin Albumin/Globulin Ratio Triglycerides Cholesterol LDL Cholesterol Direct HDL Cholesterol Procalcitonin Arterial Blood Potassium Urine Color Urine Appearance Urine pH Ur Specific [place] Urine Protein Urine Glucose (UA) Urine Ketones Urine Blood Urine Nitrate Urine Bilirubin Urine Urobilinogen Ur Leukocyte Esterase Urine RBC Urine WBC Ur Epithelial Cells Urine Opiates Screen Urine Methadone Screen Ur Barbiturates Screen Carbamazepine 8 Ur Phencyclidine Scrn Ur Amphetamines Screen U Benzodiazepines Scrn U Oth Cocaine Metabols U Cannabinoids Screen Alcohol, Quantitative Blood Type Antibody Screen BBK History Checked 03/28/18 03/28/18 03/28/18 17:20 17:20 23:12 WBC RBC Hgb Hct MCV MCH MCHC RDW Plt Count MPV Gran % Lymph % (Auto) [place] % (Auto) Eos % (Auto) Baso % (Auto) Gran # Lymph # (Auto) [place] # (Auto) Eos # (Auto) Baso # (Auto) PT INR APTT pCO2 pO2 HCO3 ABG pH ABG Total CO2 ABG O2 Saturation ABG Base Excess ABG Potassium Glucose Lactate FiO2 Sodium 139 Potassium 4.2 Chloride 103 Carbon Dioxide 25 Anion Gap 16 BUN 20 Creatinine 0.7 Est GFR ( Amer) > 60 Est GFR (Non-Af Amer) > 60 POC Glucose (mg/dL) 143 H Random Glucose 109 Lactic Acid Calcium 9.2 Phosphorus Magnesium Total Bilirubin 0.3 AST 41 H ALT 27 Alkaline Phosphatase 96 Ammonia Troponin I Total Protein 7.4 Albumin 4.4 Globulin 3.0 Albumin/Globulin Ratio 1.5 Triglycerides Cholesterol LDL Cholesterol Direct HDL Cholesterol Procalcitonin Arterial Blood Potassium Urine Color Urine Appearance Urine pH Ur Specific [place] Urine Protein Urine Glucose (UA) Urine Ketones Urine Blood Urine Nitrate Urine Bilirubin Urine Urobilinogen Ur Leukocyte Esterase Urine RBC Urine WBC Ur Epithelial Cells Urine Opiates Screen Urine Methadone Screen Ur Barbiturates Screen Carbamazepine Ur Phencyclidine Scrn Ur Amphetamines Screen U Benzodiazepines Scrn U Oth Cocaine Metabols U Cannabinoids Screen Alcohol, Quantitative Blood Type O POSITIVE Antibody Screen Negative BBK History Checked Patient has bt 03/28/18 03/28/18 03/28/18 23:35 23:35 23:35 WBC 12.4 H D RBC 4.12 Hgb 12.3 Hct 36.7 MCV 89.1 MCH 29.9 MCHC 33.5 RDW 13.5 Plt Count 380 MPV 8.6 Gran % 79.7 H Lymph % (Auto) 12.4 L [place] % (Auto) 7.7 H Eos % (Auto) 0.1 L Baso % (Auto) 0.1 Gran # 9.92 H Lymph # (Auto) 1.5 [place] # (Auto) 1.0 H Eos # (Auto) 0.0 Baso # (Auto) 0.01 PT 12.1 INR 1.06 APTT 32.5 pCO2 pO2 HCO3 ABG pH ABG Total CO2 ABG O2 Saturation ABG Base Excess ABG Potassium Glucose Lactate FiO2 Sodium 139 Potassium 4.0 Chloride 102 Carbon Dioxide 27 Anion Gap 14 BUN 26 H Creatinine 0.8 Est GFR ( Amer) > 60 Est GFR (Non-Af Amer) > 60 POC Glucose (mg/dL) Random Glucose 169 H Lactic Acid Calcium 8.9 Phosphorus 4.9 H Magnesium 1.7 Total Bilirubin 0.3 AST 40 H ALT 27 Alkaline Phosphatase 88 Ammonia Troponin I < 0.01 Total Protein 7.1 Albumin 4.2 Globulin 3.0 Albumin/Globulin Ratio 1.4 Triglycerides 107 Cholesterol 223 H LDL Cholesterol Direct 100 HDL Cholesterol 74 H Procalcitonin Arterial Blood Potassium Urine Color Urine Appearance Urine pH Ur Specific [place] Urine Protein Urine Glucose (UA) Urine Ketones Urine Blood Urine Nitrate Urine Bilirubin Urine Urobilinogen Ur Leukocyte Esterase Urine RBC Urine WBC Ur Epithelial Cells Urine Opiates Screen Urine Methadone Screen Ur Barbiturates Screen Carbamazepine Ur Phencyclidine Scrn Ur Amphetamines Screen U Benzodiazepines Scrn U Oth Cocaine Metabols U Cannabinoids Screen Alcohol, Quantitative Blood Type Antibody Screen BBK History Checked 03/28/18 03/28/18 03/29/18 23:35 23:35 00:40 WBC RBC Hgb Hct MCV MCH MCHC RDW Plt Count MPV Gran % Lymph % (Auto) [place] % (Auto) Eos % (Auto) Baso % (Auto) Gran # Lymph # (Auto) [place] # (Auto) Eos # (Auto) Baso # (Auto) PT INR APTT pCO2 pO2 HCO3 ABG pH ABG Total CO2 ABG O2 Saturation ABG Base Excess ABG Potassium Glucose Lactate FiO2 Sodium Potassium Chloride Carbon Dioxide Anion Gap BUN Creatinine Est GFR ( Amer) Est GFR (Non-Af Amer) POC Glucose (mg/dL) Random Glucose Lactic Acid 0.8 Calcium Phosphorus Magnesium Total Bilirubin AST ALT Alkaline Phosphatase Ammonia Troponin I Total Protein Albumin Globulin Albumin/Globulin Ratio Triglycerides Cholesterol LDL Cholesterol Direct HDL Cholesterol Procalcitonin 0.05 L Arterial Blood Potassium Urine Color Urine Appearance Urine pH Ur Specific [place] Urine Protein Urine Glucose (UA) Urine Ketones Urine Blood Urine Nitrate Urine Bilirubin Urine Urobilinogen Ur Leukocyte Esterase Urine RBC Urine WBC Ur Epithelial Cells Urine Opiates Screen Urine Methadone Screen Ur Barbiturates Screen Carbamazepine Ur Phencyclidine Scrn Ur Amphetamines Screen U Benzodiazepines Scrn U Oth Cocaine Metabols U Cannabinoids Screen Alcohol, Quantitative < 10 Blood Type Antibody Screen BBK History Checked 03/29/18 03/29/18 03/29/18 01:28 01:45 04:50 WBC RBC Hgb Hct MCV MCH MCHC RDW Plt Count MPV Gran % Lymph % (Auto) [place] % (Auto) Eos % (Auto) Baso % (Auto) Gran # Lymph # (Auto) [place] # (Auto) Eos # (Auto) Baso # (Auto) PT INR APTT pCO2 47 H pO2 125.0 H HCO3 26.6 ABG pH 7.36 ABG Total CO2 28.0 ABG O2 Saturation 98.0 ABG Base Excess 0.6 ABG Potassium 3.8 Glucose 141 H Lactate 0.5 L FiO2 32.0 Sodium 134.0 Potassium Chloride 104.0 Carbon Dioxide Anion Gap BUN Creatinine Est GFR ( Amer) Est GFR (Non-Af Amer) POC Glucose (mg/dL) Random Glucose Lactic Acid Calcium Phosphorus Magnesium Total Bilirubin AST ALT Alkaline Phosphatase Ammonia 16 Troponin I Total Protein Albumin Globulin Albumin/Globulin Ratio Triglycerides Cholesterol LDL Cholesterol Direct HDL Cholesterol Procalcitonin Arterial Blood Potassium 3.8 Urine Color Yellow Urine Appearance Clear Urine pH 6.0 Ur Specific [place] 1.010 Urine Protein 100 H Urine Glucose (UA) Negative Urine Ketones Negative Urine Blood Negative Urine Nitrate Negative Urine Bilirubin Negative Urine Urobilinogen 0.2 Ur Leukocyte Esterase Negative Urine RBC 0 - 2 Urine WBC 0 - 2 Ur Epithelial Cells 0 - 2 Urine Opiates Screen Urine Methadone Screen Ur Barbiturates Screen Carbamazepine Ur Phencyclidine Scrn Ur Amphetamines Screen U Benzodiazepines Scrn U Oth Cocaine Metabols U Cannabinoids Screen Alcohol, Quantitative Blood Type Antibody Screen BBK History Checked 03/29/18 03/29/18 03/29/18 04:50 12:10 12:10 WBC 11.2 H RBC 3.96 Hgb 11.6 L Hct 35.3 L MCV 89.1 MCH 29.3 MCHC 32.9 RDW 13.5 Plt Count 340 MPV 8.7 Gran % Lymph % (Auto) [place] % (Auto) Eos % (Auto) Baso % (Auto) Gran # Lymph # (Auto) [place] # (Auto) Eos # (Auto) Baso # (Auto) PT INR APTT pCO2 pO2 HCO3 ABG pH ABG Total CO2 ABG O2 Saturation ABG Base Excess ABG Potassium Glucose Lactate FiO2 Sodium 140 Potassium 4.7 Chloride 102 Carbon Dioxide 28 Anion Gap 15 BUN 32 H Creatinine 0.9 Est GFR ( Amer) > 60 Est GFR (Non-Af Amer) > 60 POC Glucose (mg/dL) Random Glucose 128 H Lactic Acid Calcium 8.8 Phosphorus Magnesium Total Bilirubin 0.2 AST 36 ALT 32 Alkaline Phosphatase 77 Ammonia Troponin I Total Protein 6.8 Albumin 3.9 Globulin 2.9 Albumin/Globulin Ratio 1.4 Triglycerides Cholesterol LDL Cholesterol Direct HDL Cholesterol Procalcitonin Arterial Blood Potassium Urine Color Urine Appearance Urine pH Ur Specific [place] Urine Protein Urine Glucose (UA) Urine Ketones Urine Blood Urine Nitrate Urine Bilirubin Urine Urobilinogen Ur Leukocyte Esterase Urine RBC Urine WBC Ur Epithelial Cells Urine Opiates Screen Negative Urine Methadone Screen Negative Ur Barbiturates Screen Negative Carbamazepine Ur Phencyclidine Scrn Negative Ur Amphetamines Screen Negative U Benzodiazepines Scrn Negative U Oth Cocaine Metabols Negative U Cannabinoids Screen Negative Alcohol, Quantitative Blood Type Antibody Screen BBK History Checked Assessment & Plan - Assessment and Plan (Free Text) Assessment: 68yo female a/w Humerus fracture, with seizure disorder Seizure - currently afebrile, HD stable, comfortable in NAD, AAOx3, protecting airway - neurology consulted - CT head negative - labs reviewed, and noted - AEDs as per neurology - EEG - monitor electrolytes - MRI Brain - Ativan PRN - Monitor on telemetry
--- NOTE | 2018-03-29 17:33 | CP.PCM.CON ---
History of Present Illness - History of Present Illness History of Present Illness: Orthopedic consultation Dr. Hedrick 68F complains of left shoulder pain after fall at home while cleaning her fan. She says she fell onto left side. She denies pain in other extremities. She denies numbness/tingling. Denies shoulder pain prior to the fall. PMH: seizure disorder, COPD PSH: hip ORIF 11/2015 Review of Systems - Review of Systems All systems: reviewed and no additional remarkable complaints except - Musculoskeletal Musculoskeletal: As Per HPI - Hematologic/Lymphatic Hematologic: absent: As Per HPI, Easy Bleeding, Easy Bruising, Lymphadenopathy, Other Past Patient History - Tetanus Immunizations Tetanus Immunization: Unknown - Past Medical History & Family History Past Medical History?: Yes Past Family History: Reviewed and not pertinent - Past Social History Smoking Status: Heavy Smoker > 10 Cigarettes Daily - CARDIAC Hx Cardiac Disorders: No - PULMONARY Hx Respiratory Disorders: Yes Hx Chronic Obstructive Pulmonary Disease (COPD): Yes - NEUROLOGICAL Hx Neurological Disorder: Yes Hx Seizures: Yes - HEENT Hx HEENT Problems: No - RENAL Hx Chronic Kidney Disease: No - ENDOCRINE/METABOLIC Hx Endocrine Disorders: No - HEMATOLOGICAL/ONCOLOGICAL Hx Blood Disorders: No - INTEGUMENTARY Hx Dermatological Problems: No - MUSCULOSKELETAL/RHEUMATOLOGICAL Hx Musculoskeletal Disorders: Yes (HX HIP FX) Hx Falls: Yes Hx Fractures: Yes - GASTROINTESTINAL Hx Gastrointestinal Disorders: Yes - GENITOURINARY/GYNECOLOGICAL Hx Genitourinary Disorders: No - PSYCHIATRIC Hx Psychophysiologic Disorder: No Hx Emotional Abuse: No Hx Physical Abuse: No - SURGICAL HISTORY Other/Comment: L HIP - ANESTHESIA Hx Anesthesia: Yes Hx Anesthesia Reactions: No Hx Malignant Hyperthermia: No Meds Allergies/Adverse Reactions: Allergies Allergy/AdvReac Type Severity Reaction Status Date / Time No Known Allergies Allergy Verified 03/28/18 15:20 - Medications Medications: Current Medications Acetaminophen (Tylenol 325mg Tab) 650 mg PO Q4H PRN PRN Reason: Fever >100.4 F Acetaminophen (Tylenol 325mg Tab) 650 mg PO Q4H PRN PRN Reason: Pain, moderate (4-7) Albuterol/Ipratropium (Duoneb 3 Mg/0.5 Mg (3 Ml) Ud) 3 ml IH [id number] [facility] Last Admin: 03/29/18 13:28 Dose: 3 ml Aspirin (Aspirin Chewable) 81 mg PO DAILY [facility] Last Admin: 03/29/18 11:12 Dose: 81 mg Carbamazepine (Tegretol) 200 mg PO TID SOANL PRN Reason: Protocol Last Admin: 03/29/18 10:29 Dose: 200 mg Famotidine (Pepcid) 20 mg PO HS SONAL Hydromorphone HCl (Dilaudid) 0.5 mg IVP Q4H PRN PRN Reason: Pain, Mild (1-3) Levetiracetam (Keppra 500mg Ivpb) 500 mg in 100 mls @ 460 mls/hr IVPB Q12 SONAL Lamotrigine (Lamictal) 200 mg PO BID SONAL Last Admin: 03/29/18 10:29 Dose: 200 mg Lorazepam (Ativan) 0.5 mg IVP Q6H PRN; Protocol PRN Reason: Seizure activity Ondansetron HCl (Zofran Inj) 4 mg IVP Q6 PRN PRN Reason: Nausea/Vomiting Physical Exam - Constitutional Appears: Well, No Acute Distress - Head Exam Head Exam: NORMOCEPHALIC - Neck Exam Neck exam: Positive for: Full Rom, Normal Inspection - Respiratory Exam Respiratory Exam: NORMAL BREATHING PATTERN - Cardiovascular Exam Additional comments: +radial pulse - Expanded Upper Extremities Exam Left Shoulder exam: swelling Neuro motor exam: thumb abduction, thumb IP flexion intact, thumb opposition intact, wrist extension intact Neurosensory exam: median nerve intact, radial nerve intact, ulnar nerve intact - Neurological Exam Neurological exam: Alert, Oriented x3 - Psychiatric Exam Psychiatric exam: Normal Affect, Normal Mood - Skin Skin Exam: Dry, Intact, Normal Color, Warm Results - Vital Signs Recent Vital Signs: Last Vital Signs Temp 98.9 F 03/29/18 06:00 Pulse 88 03/29/18 07:21 Resp 20 03/29/18 06:00 BP 114/68 03/29/18 06:00 Pulse Ox 96 03/29/18 06:00 - Labs Result Diagrams: 03/29/18 12:10 03/29/18 12:10 Labs: Laboratory Results - last 24 hr 03/28/18 03/28/18 03/28/18 17:20 17:20 17:20 WBC 19.5 H D RBC 4.34 Hgb 13.0 Hct 38.3 MCV 88.2 MCH 30.0 MCHC 33.9 RDW 13.4 Plt Count 378 MPV 8.4 Gran % 87.1 H Lymph % (Auto) 7.9 L [place] % (Auto) 4.9 Eos % (Auto) 0.0 L Baso % (Auto) 0.1 Gran # 16.94 H Lymph # (Auto) 1.5 [place] # (Auto) 1.0 H Eos # (Auto) 0.0 Baso # (Auto) 0.02 PT 12.1 INR 1.06 APTT 34.0 pCO2 pO2 HCO3 ABG pH ABG Total CO2 ABG O2 Saturation ABG Base Excess ABG Potassium Glucose Lactate FiO2 Sodium Potassium Chloride Carbon Dioxide Anion Gap BUN Creatinine Est GFR ( Amer) Est GFR (Non-Af Amer) POC Glucose (mg/dL) Random Glucose Lactic Acid Calcium Phosphorus Magnesium Total Bilirubin AST ALT Alkaline Phosphatase Ammonia Troponin I Total Protein Albumin Globulin Albumin/Globulin Ratio Triglycerides Cholesterol LDL Cholesterol Direct HDL Cholesterol Procalcitonin Arterial Blood Potassium Urine Color Urine Appearance Urine pH Ur Specific [place] Urine Protein Urine Glucose (UA) Urine Ketones Urine Blood Urine Nitrate Urine Bilirubin Urine Urobilinogen Ur Leukocyte Esterase Urine RBC Urine WBC Ur Epithelial Cells Urine Opiates Screen Urine Methadone Screen Ur Barbiturates Screen Carbamazepine 8 Ur Phencyclidine Scrn Ur Amphetamines Screen U Benzodiazepines Scrn U Oth Cocaine Metabols U Cannabinoids Screen Alcohol, Quantitative Blood Type Antibody Screen BBK History Checked 03/28/18 03/28/18 03/28/18 17:20 17:20 23:12 WBC RBC Hgb Hct MCV MCH MCHC RDW Plt Count MPV Gran % Lymph % (Auto) [place] % (Auto) Eos % (Auto) Baso % (Auto) Gran # Lymph # (Auto) [place] # (Auto) Eos # (Auto) Baso # (Auto) PT INR APTT pCO2 pO2 HCO3 ABG pH ABG Total CO2 ABG O2 Saturation ABG Base Excess ABG Potassium Glucose Lactate FiO2 Sodium 139 Potassium 4.2 Chloride 103 Carbon Dioxide 25 Anion Gap 16 BUN 20 Creatinine 0.7 Est GFR ( Amer) > 60 Est GFR (Non-Af Amer) > 60 POC Glucose (mg/dL) 143 H Random Glucose 109 Lactic Acid Calcium 9.2 Phosphorus Magnesium Total Bilirubin 0.3 AST 41 H ALT 27 Alkaline Phosphatase 96 Ammonia Troponin I Total Protein 7.4 Albumin 4.4 Globulin 3.0 Albumin/Globulin Ratio 1.5 Triglycerides Cholesterol LDL Cholesterol Direct HDL Cholesterol Procalcitonin Arterial Blood Potassium Urine Color Urine Appearance Urine pH Ur Specific [place] Urine Protein Urine Glucose (UA) Urine Ketones Urine Blood Urine Nitrate Urine Bilirubin Urine Urobilinogen Ur Leukocyte Esterase Urine RBC Urine WBC Ur Epithelial Cells Urine Opiates Screen Urine Methadone Screen Ur Barbiturates Screen Carbamazepine Ur Phencyclidine Scrn Ur Amphetamines Screen U Benzodiazepines Scrn U Oth Cocaine Metabols U Cannabinoids Screen Alcohol, Quantitative Blood Type O POSITIVE Antibody Screen Negative BBK History Checked Patient has bt 03/28/18 03/28/18 03/28/18 23:35 23:35 23:35 WBC 12.4 H D RBC 4.12 Hgb 12.3 Hct 36.7 MCV 89.1 MCH 29.9 MCHC 33.5 RDW 13.5 Plt Count 380 MPV 8.6 Gran % 79.7 H Lymph % (Auto) 12.4 L [place] % (Auto) 7.7 H Eos % (Auto) 0.1 L Baso % (Auto) 0.1 Gran # 9.92 H Lymph # (Auto) 1.5 [place] # (Auto) 1.0 H Eos # (Auto) 0.0 Baso # (Auto) 0.01 PT 12.1 INR 1.06 APTT 32.5 pCO2 pO2 HCO3 ABG pH ABG Total CO2 ABG O2 Saturation ABG Base Excess ABG Potassium Glucose Lactate FiO2 Sodium 139 Potassium 4.0 Chloride 102 Carbon Dioxide 27 Anion Gap 14 BUN 26 H Creatinine 0.8 Est GFR ( Amer) > 60 Est GFR (Non-Af Amer) > 60 POC Glucose (mg/dL) Random Glucose 169 H Lactic Acid Calcium 8.9 Phosphorus 4.9 H Magnesium 1.7 Total Bilirubin 0.3 AST 40 H ALT 27 Alkaline Phosphatase 88 Ammonia Troponin I < 0.01 Total Protein 7.1 Albumin 4.2 Globulin 3.0 Albumin/Globulin Ratio 1.4 Triglycerides 107 Cholesterol 223 H LDL Cholesterol Direct 100 HDL Cholesterol 74 H Procalcitonin Arterial Blood Potassium Urine Color Urine Appearance Urine pH Ur Specific [place] Urine Protein Urine Glucose (UA) Urine Ketones Urine Blood Urine Nitrate Urine Bilirubin Urine Urobilinogen Ur Leukocyte Esterase Urine RBC Urine WBC Ur Epithelial Cells Urine Opiates Screen Urine Methadone Screen Ur Barbiturates Screen Carbamazepine Ur Phencyclidine Scrn Ur Amphetamines Screen U Benzodiazepines Scrn U Oth Cocaine Metabols U Cannabinoids Screen Alcohol, Quantitative Blood Type Antibody Screen BBK History Checked 03/28/18 03/28/18 03/29/18 23:35 23:35 00:40 WBC RBC Hgb Hct MCV MCH MCHC RDW Plt Count MPV Gran % Lymph % (Auto) [place] % (Auto) Eos % (Auto) Baso % (Auto) Gran # Lymph # (Auto) [place] # (Auto) Eos # (Auto) Baso # (Auto) PT INR APTT pCO2 pO2 HCO3 ABG pH ABG Total CO2 ABG O2 Saturation ABG Base Excess ABG Potassium Glucose Lactate FiO2 Sodium Potassium Chloride Carbon Dioxide Anion Gap BUN Creatinine Est GFR ( Amer) Est GFR (Non-Af Amer) POC Glucose (mg/dL) Random Glucose Lactic Acid 0.8 Calcium Phosphorus Magnesium Total Bilirubin AST ALT Alkaline Phosphatase Ammonia Troponin I Total Protein Albumin Globulin Albumin/Globulin Ratio Triglycerides Cholesterol LDL Cholesterol Direct HDL Cholesterol Procalcitonin 0.05 L Arterial Blood Potassium Urine Color Urine Appearance Urine pH Ur Specific [place] Urine Protein Urine Glucose (UA) Urine Ketones Urine Blood Urine Nitrate Urine Bilirubin Urine Urobilinogen Ur Leukocyte Esterase Urine RBC Urine WBC Ur Epithelial Cells Urine Opiates Screen Urine Methadone Screen Ur Barbiturates Screen Carbamazepine Ur Phencyclidine Scrn Ur Amphetamines Screen U Benzodiazepines Scrn U Oth Cocaine Metabols U Cannabinoids Screen Alcohol, Quantitative < 10 Blood Type Antibody Screen BBK History Checked 03/29/18 03/29/18 03/29/18 01:28 01:45 04:50 WBC RBC Hgb Hct MCV MCH MCHC RDW Plt Count MPV Gran % Lymph % (Auto) [place] % (Auto) Eos % (Auto) Baso % (Auto) Gran # Lymph # (Auto) [place] # (Auto) Eos # (Auto) Baso # (Auto) PT INR APTT pCO2 47 H pO2 125.0 H HCO3 26.6 ABG pH 7.36 ABG Total CO2 28.0 ABG O2 Saturation 98.0 ABG Base Excess 0.6 ABG Potassium 3.8 Glucose 141 H Lactate 0.5 L FiO2 32.0 Sodium 134.0 Potassium Chloride 104.0 Carbon Dioxide Anion Gap BUN Creatinine Est GFR ( Amer) Est GFR (Non-Af Amer) POC Glucose (mg/dL) Random Glucose Lactic Acid Calcium Phosphorus Magnesium Total Bilirubin AST ALT Alkaline Phosphatase Ammonia 16 Troponin I Total Protein Albumin Globulin Albumin/Globulin Ratio Triglycerides Cholesterol LDL Cholesterol Direct HDL Cholesterol Procalcitonin Arterial Blood Potassium 3.8 Urine Color Yellow Urine Appearance Clear Urine pH 6.0 Ur Specific [place] 1.010 Urine Protein 100 H Urine Glucose (UA) Negative Urine Ketones Negative Urine Blood Negative Urine Nitrate Negative Urine Bilirubin Negative Urine Urobilinogen 0.2 Ur Leukocyte Esterase Negative Urine RBC 0 - 2 Urine WBC 0 - 2 Ur Epithelial Cells 0 - 2 Urine Opiates Screen Urine Methadone Screen Ur Barbiturates Screen Carbamazepine Ur Phencyclidine Scrn Ur Amphetamines Screen U Benzodiazepines Scrn U Oth Cocaine Metabols U Cannabinoids Screen Alcohol, Quantitative Blood Type Antibody Screen BBK History Checked 03/29/18 03/29/18 03/29/18 04:50 12:10 12:10 WBC 11.2 H RBC 3.96 Hgb 11.6 L Hct 35.3 L MCV 89.1 MCH 29.3 MCHC 32.9 RDW 13.5 Plt Count 340 MPV 8.7 Gran % Lymph % (Auto) [place] % (Auto) Eos % (Auto) Baso % (Auto) Gran # Lymph # (Auto) [place] # (Auto) Eos # (Auto) Baso # (Auto) PT INR APTT pCO2 pO2 HCO3 ABG pH ABG Total CO2 ABG O2 Saturation ABG Base Excess ABG Potassium Glucose Lactate FiO2 Sodium 140 Potassium 4.7 Chloride 102 Carbon Dioxide 28 Anion Gap 15 BUN 32 H Creatinine 0.9 Est GFR ( Amer) > 60 Est GFR (Non-Af Amer) > 60 POC Glucose (mg/dL) Random Glucose 128 H Lactic Acid Calcium 8.8 Phosphorus Magnesium Total Bilirubin 0.2 AST 36 ALT 32 Alkaline Phosphatase 77 Ammonia Troponin I Total Protein 6.8 Albumin 3.9 Globulin 2.9 Albumin/Globulin Ratio 1.4 Triglycerides Cholesterol LDL Cholesterol Direct HDL Cholesterol Procalcitonin Arterial Blood Potassium Urine Color Urine Appearance Urine pH Ur Specific [place] Urine Protein Urine Glucose (UA) Urine Ketones Urine Blood Urine Nitrate Urine Bilirubin Urine Urobilinogen Ur Leukocyte Esterase Urine RBC Urine WBC Ur Epithelial Cells Urine Opiates Screen Negative Urine Methadone Screen Negative Ur Barbiturates Screen Negative Carbamazepine Ur Phencyclidine Scrn Negative Ur Amphetamines Screen Negative U Benzodiazepines Scrn Negative U Oth Cocaine Metabols Negative U Cannabinoids Screen Negative Alcohol, Quantitative Blood Type Antibody Screen BBK History Checked - Impressions Impression: jerod No. 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 Subsequently, sagittal coronal reformatted images were obtained. This CT exam was performed using one or more of the following dose reduction techniques: Automated exposure control, adjustment of the mA and/or kV according to patient size, and/or use of iterative reconstruction technique. Findings: Again identified is a prominent fracture deformity through the proximal left humerus at the level of the neck. 2.3 centimeter medial sided distraction of the distal fracture fragment. There is impaction at the lateral aspect of the fracture site of the distal fracture fragment. Prominent comminuted fracture fragments are noted. Question mild subluxation of the humeral head in relationship to the bony glenoid. If there is concern for pathologic fracture, correlation with MRI may be helpful. Small 3-4 millimeter rounded ossific density at the anterior superior bony glenoid which may represent a small avulsion fragment. Acromioclavicular joint space appears preserved. Incidentally noted is a prominent 1.4 centimeter nodule/lesion seen in the superior aspect of the left lower lobe of the lung on series 3, image 44. This is of uncertain clinical etiology. Underlying neoplasm cannot be excluded. Correlation with chest CT and/or PET-CT would be helpful for further evaluation of this lesion. Emphysematous changes in the lung solares. Impression: 1. Incidentally noted is a prominent 1.4 centimeter nodule/lesion seen in the superior aspect of the left lower lobe of the lung on series 3, image 44. This is of uncertain clinical etiology. Underlying neoplasm cannot be excluded. Correlation with chest CT and/or PET-CT would be helpful for further evaluation of this lesion. 2. Again identified is a prominent fracture deformity through the proximal left humerus at the level of the neck. 2.3 centimeter medial sided distraction of the distal fracture fragment. There is impaction at the lateral aspect of the fracture site of the distal fracture fragment. Prominent comminuted fracture fragments are noted. Question mild subluxation of the humeral head in relationship to the bony glenoid. If there is concern for pathologic fracture, correlation with MRI may be helpful. 3. Small 3-4 millimeter rounded ossific density at the anterior superior bony glenoid which may represent a small avulsion fragment. Assessment & Plan (1) Fracture of humerus, proximal, left, closed Assessment and Plan: displaced, per Dr. Hedrick ORIF indicated, multispecialty optimization pending prior to OR CT reviewed, ? appearance of fracture, will get MRI shoulder r/o pathological fracture Incidental finding of 1.4cm superior LLL nodule on CT of shoulder, defer to Dr. Luciano for work up shoulder immobilizer ice pain medication will follow d/w Dr. Hedrick, agrees with above Status: Acute (2) Lung nodule Assessment and Plan: defer to Dr. Luciano Status: Acute
--- NOTE | 2018-03-29 18:04 | MRI ---
PROCEDURE: MRI BRAIN WITHOUT CONTRAST HISTORY: Seizure COMPARISON: Comparison made with CT scan and CTA brain both dated 03/28/2018 TECHNIQUE: Multiplanar, multisequence MR images of the brain were obtained without intravenous contrast enhancement. . Note that the examination is limited by motion artifact. FINDINGS: HEMORRHAGE: No acute parenchymal, subarachnoid or extra-axial hemorrhage. No evidence of hemosiderin deposition seen on gradient echo weighted sequence within limitation of the exam. DWI: No evidence of an acute or early subacute infarction. BRAIN PARENCHYMA: Mild to moderate diffuse/ confluent chronic white matter ischemic changes seen extending peripherally into the deep and subcortical white matter both cerebral hemispheres. There are also a multiple small more discrete chronic appearing lacunar type infarcts seen scattered about the deep and subcortical white matter and both superior basal ganglia. None of these changes exhibit restricted diffusion. . No evidence of mesial temporal sclerosis. Moderate volume loss appears slightly more central evidenced by disproportionate likely ventricles compared the sulci. . VENTRICLES: No obstructive hydrocephalus. CRANIUM: Calvarium intact. ORBITS: Orbits and contents appear grossly unremarkable PARANASAL SINUSES/MASTOIDS: Clear VASCULAR SYSTEM: Visualized major vascular flow voids at skull base patent. OTHER FINDINGS: None. IMPRESSION: Limited motion degraded study. No evidence of acute intracranial hemorrhage or infarct. Mild moderate diffuse/confluent chronic white matter ischemic changes. There are multiple small more discrete chronic appearing lacunar type infarcts scattered about the deep and subcortical white matter as well as both superior basal ganglia
--- NOTE | 2018-03-29 18:58 | CON ---
DATE: 03/29/2018 NEUROLOGY CONSULTATION CHIEF COMPLAINT: Seizure. HISTORY OF PRESENT ILLNESS: This is a 68-year-old woman with history of COPD; smoking; seizure disorders for many years, on Lamictal as well as Tegretol; cachexia; who presented to the hospital status post fall which resulted in a left humerus fracture. Patient was slightly altered and was having some seizure-like episodes and was given 1 mg of Ativan, which broke the seizure as well as 1 g of Keppra IV. Currently, no further seizures. Patient was very stressed and had poor sleep. CAT scan of the head showed no acute intracranial abnormalities. She underwent an EEG, which showed mild bilateral cerebral dysfunction, no evidence of any epileptiform activity. MRI of the brain is pending. PAST MEDICAL HISTORY: As above. SOCIAL HISTORY: Smokes 1 pack per day. Denies EtOH use or drug use. MEDICATIONS: Reviewed by nurses' reconciliation sheet. FAMILY HISTORY: Noncontributory. REVIEW OF SYSTEMS: Fourteen-point review of systems is negative except as per the HPI. Currently, she is moving all extremities without any difficulty. PHYSICAL EXAMINATION: VITAL SIGNS: Temperature 98.9, pulse rate of 88, blood pressure , oxygen saturation 96% by room air. GENERAL: Patient is sitting up in bed, in no acute distress. HEENT: Atraumatic, normocephalic. PERRLA. Extraocular muscles intact. NECK: Supple. No JVD. No adenopathy noted. LUNGS: Clear to auscultation. No adventitious sounds. HEART: S1, S2. Normal rate and rhythm. No murmurs, rubs, or gallops. ABDOMEN: Soft, nontender, and nondistended. Bowel sounds are present. EXTREMITIES: No clubbing. No cyanosis. Peripheral pulses 2+ felt bilaterally. NEUROLOGIC: Patient is alert and oriented to person, place, month, and year. Speech is fluent without any errors. Cranial nerves II through XII intact. Motor: Moves all extremities equally. Toes are downgoing bilaterally. Sensory: Light touch, pinprick, proprioception, and vibration are intact. DTRs are 2+ throughout. Coordination: [id number] intact. Gait is deferred for now. LABORATORY DATA: Carbamazepine level is 8, within normal limits. Sodium is 140, potassium 4.2, chloride 102, carbon dioxide of 28, BUN of 33, creatinine of 0.9, random glucose 128. ASSESSMENT AND PLAN: This is a 68-year-old woman with past medical history of chronic obstructive pulmonary disease; history of seizure disorder for many years, on Lamictal 200 mg p.o. b.i.d. and Tegretol 200 mg p.o. b.i.d.; history of pulmonary hypertension; and is a smoker; who presented status post fall resulted in a left humeral fracture who had breakthrough seizure likely stress induced and poor sleep deprivation. Keppra 1 g was given as well as 1 mg of Ativan IV. Seizure broke, patient is stable, moving all extremities, A and O x3 currently. CAT scan of the head showed no acute intracranial abnormalities. EEG showed mild bilateral cerebral dysfunction. She was mildly dehydrated. At this time, we would recommend: 1. Continue with current dose of Lamictal 200 mg p.o. b.i.d. in addition to Tegretol 200 mg p.o. t.i.d. 2. Advised sleep hygiene and avoid nighttime interruptions. 3. Hydration throughout the day. 4. Monitor electrolytes and correct accordingly. 5. Smoking cessation counseled. 6. Clinically cleared for surgery for left humeral fracture. Thank you for this consultation. Willem Mac MD
[2018-03-29] MEDS ORDERED: levETIRAcetam 500mg IVPB 500 MG/100 ML BAG IVPB SCH (22:00)
--- NOTE | 2018-03-30 00:14 | CON ---
DATE: PULMONARY CONSULTATION REFERRING PHYSICIAN: Carley Luciano MD REASON FOR CONSULTATION: Chronic obstructive lung disease, lung nodule status post fall with the left humeral fracture. HISTORY OF PRESENT ILLNESS: This is a 68-year-old female has known history of chronic obstructive lung disease, pulmonary hypertension, seizure disorder. According to the patient, she tripped and fell, hit her left upper extremity, came to emergency room, found to have a comminuted fracture of the humerus. While in the hospital, she had a seizure. Ativan was given. Her home seizure medications started. Presently, she is sleepy, arousable. Follows simple command. Left upper extremity in a sling, has a cough, not much sputum production. Incidental finding during the x-ray of the left extremity shows speculated nodule in the left lower lobe, which is proven by CT. A speculated nodule. No hemoptysis, no hematemesis, no hematuria. No diarrhea reported. PAST MEDICAL HISTORY: Chronic obstructive lung disease, pulmonary hypertension, seizure disorder. ALLERGIES: NONE KNOWN. SOCIAL HISTORY: Active smoker. Denies any alcohol use. FAMILY HISTORY: No significant cardiopulmonary disease reported. MEDICATIONS: She is on aspirin 81 mg daily, Ativan 0.5 mg every .6 hours p.r.n. for seizure, Dilaudid 0.5 mg every 4 hours p.r.n. for pain, DuoNeb every 6 hour oinab-oze-cvouu, Keppra 500 mg every 12 hours, Lamictal 200 mg twice a day, also received 1 g loading dose of levetiracetam, Pepcid 20 mg daily, Tegretol 200 mg three times a day, Tylenol p.r.n., Zofran p.r.n. basis. REVIEW OF SYSTEMS: Sleepy, arousable. Follows simple command. No headache, no rhinitis. According to the patient, her last seizure was a couple of weeks ago; has a cough, not much sputum. No nausea, no vomiting. No diarrhea. No leg pain or leg swelling. Left upper extremity is in sling. PHYSICAL EXAMINATION: GENERAL: Sleepy, arousable. VITAL SIGNS: Temperature is 98, heart rate is 88, respiratory rate is 20, blood pressure 114/68, pulse of 96% on 2 liters nasal cannula. HEENT: Small oral cavity. Crowded airway. NECK: Supple. No JVD. LUNGS: Have scattered rhonchi. HEART: S1 and S2. ABDOMEN: Soft, nontender. No organomegaly. EXTREMITIES: There is no edema of lower extremity. Left upper extremity is in sling. NEUROLOGICAL: Awake and alert. Follows simple command. LABORATORY DATA: Shows hemoglobin 12.3, hematocrit 36.7, WBC 12.4, platelet is 380. INR is 1.06. PTT is 32. Has blood gases done shows pH 7.36, pCO2 47, O2 125 that was on supplemental oxygen. Sodium 139, potassium 4, chloride 102, bicarbonate 27, BUN 26, creatinine 0.8, glucose 169, calcium is 8.9, magnesium 1.7, AST 40, ALT 27, alkaline phosphatase is 88. Lactic acid 0.8, phosphorus 4.9, troponin 0.01. Albumin 4.2, ammonia 16, cholesterol 223. Drug screen have been negative. CAT scan of the head was unremarkable for any infarct or bleed. CAT scan of the upper extremity was consisted of her comminuted fracture of the humerus and also suggests a left lower lobe speculated nodule in the lung. There is also CTA of the head and neck was done, which shows some carotid stenosis and also 1.2 cm speculated nodule in the left lower lobe. Also had a thyroid nodule, been biopsy in the past. Last on 04/2017, which was consistent with benign follicular adenomatoid nodule with cystic degeneration. IMPRESSION AND PLAN: Status post mechanical fall with left humeral comminuted fracture, chronic obstructive lung disease, pulmonary hypertension, seizure disorder, may have a sleep apnea syndrome, adjustment mood disorder, speculated left lung nodule. Case discussed with the nursing staff. We will continue to observe closely on antiseizure medication, if there is no seizure in the next 24 hours. Pulmonary point of view, she is okay to go for surgery if required. Will also be seen by Cardiology. Continue inhaled bronchodilator, gastric prophylaxis. Sequential compression device to lower extremity. Thank you and we will follow with you. Carol Zuñiga MD
--- NOTE | 2018-03-30 00:16 | CON ---
DATE: 03/29/2018 LOCATION: The patient in room 565, bed 1. REASON FOR CONSULTATION: Fractured humerus, cardiac risk stratification for surgery, COPD, seizure disorder, shortness of breath. HISTORY OF PRESENT ILLNESS: The patient is a 68-year-old female, admitted with a history that she stood up on stool to fix something and she fell and hit the left shoulder, and the patient came to emergency room, found to have left humerus fracture. The patient denies any chest pain or palpitation associated with the fall or any dizziness. The patient is known to have COPD and tobacco abuse. She states she still smokes one pack a day. The patient is also known to have seizure disorder and is on medication. The patient denies any chest pain or palpitation on exertion, and no prior history of any cardiac disease, hypertension or diabetes.Also Gets pain both calf o walking. PAST MEDICAL HISTORY: Positive for right hip surgery, seizure disorder as mentioned, and history of COPD. PERSONAL HISTORY: The patient has a history of tobacco abuse. Still continues to smoke one pack a day. She says that until 6 years ago, she used to drink heavy, but she stopped 6 years ago. ALLERGIES: SHE DENIES ANY ALLERGIES. MEDICATIONS AT HOME: Tegretol 200 mg p.o. t.i.d. and Lamictal 200 mg b.i.d. REVIEW OF SYSTEMS: All the systems were reviewed and positive mentioned in the history of present illness; others were negative. PHYSICAL EXAMINATION VITAL SIGNS: Blood pressure 114/68, respirations 20, . HEENT: Head is normocephalic. Eyes, pupils normal. Conjunctivae normal. Nose and throat normal. NECK: JVP low. Carotids equal. THORAX: AP diameter slightly increased. LUNGS: No rales. CARDIOVASCULAR: S1 and S2. ABDOMEN: Soft. No tenderness. No organomegaly. EXTREMITIES: No clubbing. No cyanosis. Decreased Pulses. LABORATORY DATA: Shows WBC 11.2, hemoglobin 11.6, hematocrit 35.3, platelets 340. Sodium 140, potassium 4.7, BUN 32, creatinine 0.9. AST and ALT normal. Total protein 6.8, albumin 3.9. Chest x-ray, no active pulmonary disease, displaced left humeral neck fracture. EKG showed normal sinus rhythm, nonspecific ST-T wave changes, poor R-wave progression, V1 through V6. DIAGNOSES: Fractured humerus, chronic obstructive pulmonary disease, tobacco abuse, seizure disorder. Pulmonary Nodule. PAD. PLAN: While I was with Patient she had a seizure, which was controlled. The patient was given Ativan 1 mg IV and the patient was already on Lamictal 200 mg b.i.d., Tegretol 200 t.i.d., aspirin 81 mg daily. The patient also found to have lung nodule. From cardiac point of view, the patient will be at moderate risk because of COPD and seizure disorder for surgery, but there is no absolute contraindication for surgery from cardiac point of view but before that, while the patient is on medication for seizure, she still got the seizure, so we have to control seizures. So for this, Neurology evaluation is important and stabilize the patient from seizure point of view before the patient goes to surgery. We will continue to follow with you and the patient's lung nodule will be also evaluated by Dr. Zuñiga who is going to see from the pulmonary point of view for COPD and lung nodule. We will follow. Carol Ley MD [facility]
[2018-03-30] MEDS: Albuterol-Ipratrop 3 mg / 0.5 (3 ml) UD IH SCH ×6 (03:53→20:37)
--- NOTE | 2018-03-30 08:20 | EEG ---
DATE: 03/29/2018 ELECTROENCEPHALOGRAM This is a 68-year-old female who has a history of hyperglycemia and history of fall and fractured left humerus and an EEG was done. CONDITION OF THE RECORDING: Weak, drowsy. MEDICATION: Keppra. DESCRIPTION: Background activity of this tracing was composed of 7 to 8 cycles per second alpha like activity, small amount of beta activity, 16 to 20 cycles per second was noted in the tracing. Theta activity 5 to 7 cycles per second was noted in the tracing. Drowsiness was composed of mixed beta and theta activity. Photic stimulation does not change the record. No paroxysmal activity was seen in the record. IMPRESSION: Mild bilateral cerebral dysfunction, diffuse. Kristopher Mac MD
--- NOTE | 2018-03-30 10:53 | CP.PCM.PN ---
Subjective - Date & Time of Evaluation Date of Evaluation: 03/30/18 Time of Evaluation: 07:15 - Subjective Subjective: Awake,feels okay, denies chest pain, denies shortness of breath Reason for consultation and follow up: Cardiac evaluation, post fall, left humerus fracture, seizure disorder, hyperlipidemia, current heavy smoker, COPD Seen and examined by me and Dr. Ley Objective - Vital Signs/Intake and Output Vital Signs (last 24 hours): Temp Pulse Resp BP Pulse Ox 98 F 83 20 120/73 99 03/30/18 06:00 03/30/18 06:00 03/30/18 06:00 03/30/18 06:00 03/30/18 06:00 Intake and Output: 03/30/18 03/30/18 06:59 18:59 Intake Total 480 Balance 480 - Medications Medications: Current Medications Acetaminophen (Tylenol 325mg Tab) 650 mg PO Q4H PRN PRN Reason: Fever >100.4 F Acetaminophen (Tylenol 325mg Tab) 650 mg PO Q4H PRN PRN Reason: Pain, moderate (4-7) Albuterol/Ipratropium (Duoneb 3 Mg/0.5 Mg (3 Ml) Ud) 3 ml IH [id number] [facility] Last Admin: 03/30/18 09:10 Dose: 3 ml Aspirin (Aspirin Chewable) 81 mg PO DAILY [facility] Last Admin: 03/30/18 10:43 Dose: 81 mg Carbamazepine (Tegretol) 200 mg PO TID [facility] PRN Reason: Protocol Last Admin: 03/30/18 10:43 Dose: 200 mg Famotidine (Pepcid) 20 mg PO HS [facility] Last Admin: 03/29/18 22:20 Dose: 20 mg Hydromorphone HCl (Dilaudid) 0.5 mg IVP Q4H PRN PRN Reason: Pain, Mild (1-3) Lamotrigine (Lamictal) 200 mg PO BID [facility] Last Admin: 03/30/18 10:43 Dose: 200 mg Lorazepam (Ativan) 0.5 mg IVP Q6H PRN; Protocol PRN Reason: Seizure activity Ondansetron HCl (Zofran Inj) 4 mg IVP Q6 PRN PRN Reason: Nausea/Vomiting - Labs Labs: 03/29/18 12:10 03/29/18 12:10 PT 12.1 SECONDS (9.4-12.5) 03/28/18 23:35 INR 1.06 (0.93-1.08) 03/28/18 23:35 APTT 32.5 Seconds (25.1-36.5) 03/28/18 23:35 - Constitutional Appears: No Acute Distress - Head Exam Head Exam: NORMOCEPHALIC - ENT Exam ENT Exam: Mucous Membranes Moist - Respiratory Exam Respiratory Exam: Clear to Ausculation Bilateral, NORMAL BREATHING PATTERN - Cardiovascular Exam Cardiovascular Exam: +S1, +S2 - GI/Abdominal Exam GI & Abdominal Exam: Soft, Normal Bowel Sounds - Extremities Exam Extremities Exam: Normal Capillary Refill Additional comments: left arm sling - Neurological Exam Neurological Exam: Alert, Awake, Oriented x3 - Psychiatric Exam Psychiatric exam: Normal Affect, Normal Mood - Skin Skin Exam: Intact, Normal Color, Warm Assessment and Plan - Assessment and Plan (Free Text) Assessment: A 68 year old female who came in to the Er due to left shoulder pain for 3 days with history of fall 3 days ago prior to admission. History of seizure disorder,high cholesterol, current smoker,COPD. recent CT of chest showed left lower lobe lung nodule. Plan: Cardiac status stable Denies chest pain Clear for humerus fracture surgery from cardiac standpoint, moderate risk Neuro evaluation and follow up Recent seizure episode stable blood pressure and heart rate Continue current treatment Continue current medications Smoking cessation Will follow up Plan and treatment discussed with Dr. Ley
--- NOTE | 2018-03-30 12:50 | PN ---
DATE: 03/29/2018 SUBJECTIVE: The patient is a 68-year-old female. The patient was seen and examined on the bedside on 03/29/2018. Looking comfortable. Has episode of fevers. Still having pain in the left upper extremity. No fever. No chills. No nausea, vomiting, diarrhea. No hematuria or hematochezia. No headache. No dizziness. No chest pain. PHYSICAL EXAMINATION: VITAL SIGNS: Temperature 98.9, pulse 88, blood pressure 120/80, respiratory rate 18. HEENT: Head normocephalic, atraumatic. Eyes PERRLA. Extraocular muscles intact. Conjunctivae clear. Nose patent. Mucous membrane moist. NECK: Supple. No carotid bruit. No JVD or thyromegaly. CHEST: Bilaterally symmetrical. HEART: S1 and S2 positive. LUNGS: Clear to auscultation. ABDOMEN: Soft. Bowel sounds positive. No organomegaly. EXTREMITIES: Lower extremities, no edema. No cyanosis. Left upper extremity range of motion is zero. LABORATORY DATA: Carbamazepine level is 8 that is within normal limit. Sodium 140, potassium 4.2, BUN 33, creatinine 0.9, glucose 128. MEDICATIONS: Reviewed by me. ASSESSMENT AND PLAN: Mrs. Leann Helm, a 68-year-old lady with multiple medical problems; chronic obstructive lung disease; history of seizure disorder for many years, was a private patient of Dr. Soliman, is on Lamictal and Tegretol; history of pulmonary hypertension; history of active smoking; status post fall; fracture of the left humerus; had breakthrough seizures, likely stress induced. There maybe poor sleep habits. Dr. Willem Mac gave Keppra 1 g, gave Ativan to see if that improve the seizure. Oriented x3. CAT scan of the head showed no acute intracranial abnormalities. EEG shows mild bilateral cerebral dysfunction. She was mildly dehydrated. Continue present Lamictal, Tegretol. Advised sleep hygiene and avoid nighttime interruption. Hydration, monitoring electrolytes. Urged to quit smoking. Gastrointestinal and deep venous thrombosis prophylaxis. We will continue present treatment. Repeat labs. Appreciated Dr. Zuñiga's and Dr. Ley's clearance for surgery. We will follow up. Carley Luciano MD [facility] # [phone]
[2018-03-30] MEDS ORDERED: Gadodiamide 287 MG/ML VIAL (15ML) IV ONE (13:30)
--- NOTE | 2018-03-30 14:47 | MRI ---
PROCEDURE: MRI of the left shoulder with and without contrast HISTORY: left shoulder prox humerus fracture, r/o tumor COMPARISON: Plain films and CT dated 03/28/2018 TECHNIQUE: MRI of the left shoulder was performed in multiple planes using multiple pulse sequences. Postcontrast imaging was also performed. 15 cc of Omniscan were injected. FINDINGS: There is a severely displaced fracture of the left humeral neck. There is a large fluid collection at the fracture site. There is no evidence of abnormal bone marrow enhancement to suggest an underlying tumor. The humeral head maintains alignment with the bony glenoid. IMPRESSION: Severely displaced fracture of the left humeral neck with large fluid collection. No evidence of enhancing underlying bony tumor
[2018-03-30] MEDS: Sodium Chloride 0.9% 1,000 ML IV SCH (14:49)
--- NOTE | 2018-03-30 14:58 | CP.PCM.PN ---
Subjective - Date & Time of Evaluation Date of Evaluation: 03/30/18 Time of Evaluation: 14:56 - Subjective Subjective: Ortho f/u Dr. Hedrick Addendum: d/w Dr. Hedrick, for ORIF vs proximal humeral replacement when medically optimized Per radiology, no enhancement in left proximal humeral fracture to suggest tumor Called DR. Luciano, she is aware of lung mass atient Name / ID : BRANDON PRIEST / [id number] Exam Date : 03/30/2018 13:06:35 ( Approved ) Study Comment : Sex / Age : F / 68Y Creator : Onur Casillas MD Dictator : Onur Casillas MD Mechanical Door Repairer : Inspector Tester Sorter : Onur Casillas MD Approver2 : Report Date : 03/30/2018 14:40:25 My Comment : PROCEDURE: MRI of the left shoulder with and without contrast HISTORY: left shoulder prox humerus fracture, r/o tumor COMPARISON: Plain films and CT dated 03/28/2018 TECHNIQUE: MRI of the left shoulder was performed in multiple planes using multiple pulse sequences. Postcontrast imaging was also performed. 15 cc of Omniscan were injected. FINDINGS: There is a severely displaced fracture of the left humeral neck. There is a large fluid collection at the fracture site. There is no evidence of abnormal bone marrow enhancement to suggest an underlying tumor. The humeral head maintains alignment with the bony glenoid. IMPRESSION: Severely displaced fracture of the left humeral neck with large fluid collection. No evidence of enhancing underlying bony tumor Objective - Vital Signs/Intake and Output Vital Signs (last 24 hours): Temp Pulse Resp BP Pulse Ox 98 F 83 20 120/73 99 03/30/18 06:00 03/30/18 06:00 03/30/18 06:00 03/30/18 06:00 03/30/18 06:00 Intake and Output: 03/30/18 03/30/18 06:59 18:59 Intake Total 480 600 Balance 480 600 - Medications Medications: Current Medications Acetaminophen (Tylenol 325mg Tab) 650 mg PO Q4H PRN PRN Reason: Fever >100.4 F Acetaminophen (Tylenol 325mg Tab) 650 mg PO Q4H PRN PRN Reason: Pain, moderate (4-7) Albuterol/Ipratropium (Duoneb 3 Mg/0.5 Mg (3 Ml) Ud) 3 ml IH [id number] [facility] Last Admin: 03/30/18 13:52 Dose: 3 ml Aspirin (Aspirin Chewable) 81 mg PO DAILY [facility] Last Admin: 03/30/18 10:43 Dose: 81 mg Carbamazepine (Tegretol) 200 mg PO TID [facility] PRN Reason: Protocol Last Admin: 03/30/18 14:43 Dose: 200 mg Famotidine (Pepcid) 20 mg PO HS [facility] Last Admin: 03/29/18 22:20 Dose: 20 mg Hydromorphone HCl (Dilaudid) 0.5 mg IVP Q4H PRN PRN Reason: Pain, Mild (1-3) Sodium Chloride (Sodium Chloride 0.9%) 1,000 mls @ 75 mls/hr IV .[id number] [facility] Last Admin: 03/30/18 14:49 Dose: 75 mls/hr Lamotrigine (Lamictal) 200 mg PO BID [facility] Last Admin: 03/30/18 10:43 Dose: 200 mg Lorazepam (Ativan) 0.5 mg IVP Q6H PRN; Protocol PRN Reason: Seizure activity Last Admin: 03/30/18 12:44 Dose: 0.5 mg Ondansetron HCl (Zofran Inj) 4 mg IVP Q6 PRN PRN Reason: Nausea/Vomiting - Labs Labs: 03/29/18 12:10 03/29/18 12:10 PT 12.1 SECONDS (9.4-12.5) 03/28/18 23:35 INR 1.06 (0.93-1.08) 03/28/18 23:35 APTT 32.5 Seconds (25.1-36.5) 03/28/18 23:35 Assessment and Plan (1) Fracture of humerus, proximal, left, closed Status: Acute (2) Lung nodule Status: Acute
--- NOTE | 2018-03-30 17:28 | PN ---
DATE: 03/30/2018 PULMONARY PROGRESS NOTE REFERRING PHYSICIAN: Carley Luciano MD. SUBJECTIVE: She is lying in the bed, head at 45 degrees, much more awake and alert. No seizure since yesterday morning. Scheduled for MRI of the left upper extremity to assure there is no metastatic disease. No nausea, no vomiting, or diarrhea. No leg pain or leg swelling. PHYSICAL EXAMINATION: GENERAL: In no acute distress. VITAL SIGNS: Temperature is 98, heart rate is 83, respiratory rate is 20, blood pressure 120/73, pulse ox 99% on nasal cannula. HEENT: Moist mucous membrane. No ulcer or thrush noted. NECK: Supple. No JVD. LUNGS: Have scattered rhonchi and wheezing. HEART: S1, S2. ABDOMEN: Soft, nontender. No organomegaly. EXTREMITIES: Left upper extremity with sling. NEUROLOGIC: Awake and alert. Follows simple command. MEDICATIONS: She is on aspirin 81 mg daily, Ativan 0.5 mg every 6 hours p.r.n., Dilaudid 0.5 mg every 4 hours p.r.n., DuoNeb every 6 hours [id number], Lamictal 200 mg twice a day, Pepcid 20 mg daily, Tegretol 200 mg 3 times a day, Tylenol p.r.n., and Zofran 4 mg every 6 hours p.r.n. LABORATORY DATA: Shows sodium 140. Microbiology: Blood culture has been negative. She has MRI of the brain done yesterday, which shows no evidence of acute intracranial hemorrhage or infarct. [id number] diffuse/confluent chronic white matter ischemic changes. There are multiple more discrete chronic-appearing lacunar type infarct scattered above the deep and subcortical white matter as well as in the superior basal ganglia. IMPRESSION AND PLAN: Status post mechanical fall with left humeral comminuted fracture, chronic obstructive lung disease, pulmonary hypertension, seizure disorder, may have sleep apnea syndrome with mood disorder, has a spiculated left lung nodule. The patient is being scheduled for left upper extremity MRI to assure there is no pathological fracture. Pulmonary point of view, her status is optimized for possible surgery. Of course, once stable, needs left lung nodule biopsy. Continue bronchodilator, keep head at 45 degrees, antiseizure medication, gastric prophylaxis, sequential compression device to lower extremity. Thank you and we will follow with you. Carol Zuñiga MD [facility] # [id number]
--- NOTE | 2018-03-30 20:20 | CT ---
EXAM: CT Chest Without Intravenous Contrast EXAM DATE/TIME: 03/30/2018 6:01 PM CLINICAL HISTORY: The patient age is 68 years old and is female; Screening exam; Other screening; Additional info: Rule out lung malignancy, determine nodule Facility exam id and description: Ct [facility] chest w/o high res chest TECHNIQUE: Axial computed tomography images of the chest without intravenous contrast. All CT scans at this facility use one or more dose reduction techniques, viz.: automated exposure control; ma/kV adjustment per patient size (including targeted exams where dose is matched to indication; i.e. head); or iterative reconstruction technique. Coronal and sagittal reformatted images were created and reviewed. COMPARISON: CT - ANGIO CHEST PE PROTOCOL 2016-12-17 18:47 FINDINGS: Lungs: Within the left lower lobe on series 3 image 40, there is a new spiculated nodule measuring 1.0 cm in diameter. Malignancy is the diagnosis of exclusion. Dependent groundglass density and atelectatic changes are visualized within the right lower lobe. Atelectatic change is seen within the lingula. 2 nodules are visualized in the right upper lobe of the lung on series 3 image 28, the largest nodule measuring 6 mm. These nodules are stable. Emphysematous changes are identified bilaterally, which are predominantly centrilobular. There is a 4 mm arlen-fissural nodule within the superior segment of the right lower lobe, which is stable. A few additional small lung nodules are identified. Pleural space: No pneumothorax. No significant effusion. Heart: There is a minimal pericardial effusion. There is coronary artery calcification. A small amount of fluid is seen in the superior pericardial recess. Thyroid: The thyroid gland is prominent in size. Bones/joints: There is a comminuted fracture of the proximal left humerus with displacement of fracture fragments. There is increased kyphosis of the thoracic spine. Several compression fractures are visualized within the mid thoracic spine, stable compared to the prior study. Osteopenia. There is a small nonspecific sclerotic focus/lesion within the T8 vertebral body. There is mild angulation of the left seventh rib, which is stable. Vasculature: Atherosclerotic changes are identified. Atherosclerotic changes are visualized. There is calcification of the bilateral renal arteries. A nonobstructing renal calculus cannot be excluded. No thoracic aortic aneurysm. Lymph nodes: A few small mediastinal lymph nodes are identified, without significant lymphadenopathy. Evaluation or hilar lymph nodes is limited by the absence of intravenous contrast. Adrenals: A left adrenal nodule is identified measuring 1.6 cm in diameter. IMPRESSION: 1. Within the left lower lobe on series 3 image 40, there is a new spiculated lung nodule measuring 1.0 cm in diameter. Additional lung nodules are noted above. Malignancy is the diagnosis of exclusion. PET/CT is recommended. 2. Dependent groundglass density and atelectatic changes are visualized within the right lower lobe. Atelectatic change is seen within the lingula. 3. There is a comminuted fracture of the proximal left humerus with displacement of fracture fragments. 4. There is a minimal pericardial effusion. 5. A left adrenal nodule is identified measuring 1.6 cm in diameter. 6. There is increased kyphosis of the thoracic spine. Several compression fractures are visualized within the mid thoracic spine, stable compared to the prior study. 7. Additional CT findings described above.
[2018-03-31] MEDS: Albuterol-Ipratrop 3 mg / 0.5 (3 ml) UD IH SCH ×4 (01:11→19:27)
--- NOTE | 2018-03-31 03:51 | PN ---
DATE: 03/30/2018 SUBJECTIVE: The patient is a 68-year-old female. The patient was seen and examined at the bedside. The patient's son and a friend was sitting on the bedside also. The patient still having pain in the left upper extremity, some time coughing today. No more seizures. No headache. No dizziness. No chest pain. No palpitation. Done MRA of the left upper extremity which shows there is no metastatic disease. No swelling of the leg. PHYSICAL EXAMINATION: VITAL SIGNS: Temperature 98, heart rate 83. respiratory rate 20, blood pressure 120/73, pulse oximetry 99% on nasal cannula. HEENT: Head normocephalic, atraumatic. Eyes PERRLA. Extraocular muscles intact. Conjunctivae clear. Nose patent. NECK: Supple. No carotid bruit. No JVD or thyromegaly. CHEST: Bilaterally symmetrical. HEART: S1 and S2 positive. LUNGS: Has scattered rhonchi and wheezing. ABDOMEN: Soft, nontender. No organomegaly. EXTREMITIES: Left extremity sling. Range of motion is limited. NEUROLOGIC: The patient is awake, alert, follows simple commands. MEDICATIONS: Aspirin, Ativan, Dilaudid, DuoNeb round the clock, Lamictal, Pepcid, Tegretol, Tylenol, Zofran. LABORATORY DATA: We do not have recent lab today, but I reviewed old labs.. ASSESSMENT AND PLAN: Mrs. Leann Helm is a 68-year-old lady, status post mechanical fall with asthma. The patient with left humerus comminuted fracture, chronic obstructive lung disease; history of heavy smoking for long time. Pulmonary hypertension, seizure disorder, was getting out of control during hospital stay, then we called another neurologic consult with Dr. Mac. Sleep apnea syndrome with mood disorders, has spiculated left lung density. MRI of the upper extremity done. Per Dr. Zuñiga, the patient needed lung nodule density, medication adjusted, deep venous thrombosis and gastrointestinal prophylaxis and seizure prophylaxis. Length of time discussion done with the patient's son. Medially displaced fracture of the left humerus, bone tumor as per MRI of the left upper extremity. CT scan of the chest is noted. There is minimal pericardial effusion, left adrenal nodule is identified, may be in diameter. There is kyphosis of the thoracic spine and several compression fractures are visualized within the mid thoracic spine and stable compared to the previous study. Discussion done with the family. Repeat labs. We will follow up. Carley Luciano MD [facility]
[2018-03-31] MEDS: Sodium Chloride 0.9% 1,000 ML IV SCH ×2 (05:43→18:42)
[2018-03-31 06:57] LABS: MEAN CELL VOLUME 90.9 fl (80.0-105.0); MEAN PLATELET VOLUME 8.6 fl (7.0-11.0); RBC 3.2 10^6/uL (3.5-6.1); RED CELL DISTRIBUTION WIDTH 13.7 % (11.5-14.5); WHITE BLOOD COUNT 10.7 10^3/ul (4.5-11.0)
[2018-03-31 07:04] LABS: HEMOGLOBIN 9.6 g/dL (12.0-16.0)
[2018-03-31 07:17] LABS: BLOOD UREA NITROGEN 18 mg/dL (7-21); CALCIUM 8.6 mg/dL (8.4-10.5); GFR AFRICAN-AMERICAN > 60; GFR NON-AFRICAN AMERICAN > 60
--- NOTE | 2018-03-31 07:17 | CP.PCM.PN ---
Subjective - Date & Time of Evaluation Date of Evaluation: 03/31/18 Time of Evaluation: 06:15 - Subjective Subjective: Awake,feels okay,denies any seizure activity, denies chest pain, denies shortness of breath Reason for consultation and follow up: Cardiac evaluation, post fall, left humerus fracture, seizure disorder, hyperlipidemia, current heavy smoker, COPD Seen and examined by me and Dr. Ley Objective - Vital Signs/Intake and Output Vital Signs (last 24 hours): Temp Pulse Resp BP Pulse Ox 98.7 F 90 20 148/76 100 03/30/18 22:00 03/30/18 22:00 03/30/18 22:00 03/30/18 22:00 03/30/18 22:00 Intake and Output: 03/31/18 03/31/18 06:59 18:59 Intake Total 360 Balance 360 - Medications Medications: Current Medications Acetaminophen (Tylenol 325mg Tab) 650 mg PO Q4H PRN PRN Reason: Fever >100.4 F Acetaminophen (Tylenol 325mg Tab) 650 mg PO Q4H PRN PRN Reason: Pain, moderate (4-7) Last Admin: 03/31/18 07:04 Dose: 650 mg Albuterol/Ipratropium (Duoneb 3 Mg/0.5 Mg (3 Ml) Ud) 3 ml IH [id number] [facility] Last Admin: 03/31/18 01:11 Dose: 3 ml Aspirin (Aspirin Chewable) 81 mg PO DAILY [facility] Last Admin: 03/30/18 10:43 Dose: 81 mg Carbamazepine (Tegretol) 200 mg PO TID [facility] PRN Reason: Protocol Last Admin: 03/30/18 18:26 Dose: 200 mg Famotidine (Pepcid) 20 mg PO HS [facility] Last Admin: 03/30/18 22:39 Dose: 20 mg Hydromorphone HCl (Dilaudid) 0.5 mg IVP Q4H PRN PRN Reason: Pain, Mild (1-3) Sodium Chloride (Sodium Chloride 0.9%) 1,000 mls @ 75 mls/hr IV .[id number] [facility] Last Admin: 03/31/18 05:43 Dose: 75 mls/hr Lamotrigine (Lamictal) 200 mg PO BID [facility] Last Admin: 03/30/18 18:26 Dose: 200 mg Lorazepam (Ativan) 0.5 mg IVP Q6H PRN; Protocol PRN Reason: Seizure activity Last Admin: 03/30/18 12:44 Dose: 0.5 mg Ondansetron HCl (Zofran Inj) 4 mg IVP Q6 PRN PRN Reason: Nausea/Vomiting - Labs Labs: 03/31/18 06:15 03/29/18 12:10 PT 12.1 SECONDS (9.4-12.5) 03/28/18 23:35 INR 1.06 (0.93-1.08) 03/28/18 23:35 APTT 32.5 Seconds (25.1-36.5) 03/28/18 23:35 - Constitutional Appears: No Acute Distress - Head Exam Head Exam: NORMOCEPHALIC - Eye Exam Eye Exam: Normal appearance - ENT Exam ENT Exam: Mucous Membranes Moist - Respiratory Exam Respiratory Exam: NORMAL BREATHING PATTERN - Cardiovascular Exam Cardiovascular Exam: +S1, +S2 - GI/Abdominal Exam GI & Abdominal Exam: Soft, Normal Bowel Sounds - Exam Additional comments: continent - Extremities Exam Additional comments: left arm humerus fracture with sling - Neurological Exam Neurological Exam: Alert, Awake, Oriented x3 - Psychiatric Exam Psychiatric exam: Normal Affect, Normal Mood - Skin Skin Exam: Intact, Normal Color, Warm Assessment and Plan - Assessment and Plan (Free Text) Assessment: A 68 year old female who came in to the Er due to left shoulder pain for 3 days with history of fall 3 days ago prior to admission. History of seizure disorder,high cholesterol, current smoker,COPD. recent CT of chest showed left lower lobe lung nodule. Seizure activity with this admission. Neuro consult. Plan: Chest CT done yesterday,fito nodule present, fracture of proximal left humerus with displacement of fracture fragments, minimal pericardial effusion,left adrenal nodule identified, severe kyphosis of the thoracic spine,severe compression fractures mid thoracic spine Cardiac status stable Denies chest pain Clear for humerus fracture surgery from cardiac standpoint, moderate risk No more seizure activity Stable blood pressure and heart rate Continue current treatment Continue current medications Smoking cessation Will follow up Plan and treatment discussed with Dr. Ley
[2018-03-31] MEDS ORDERED: Ergocalciferol 50,000 Intl Units Cap PO SCH (11:30)
--- NOTE | 2018-03-31 18:42 | PN ---
DATE: 03/31/2018 PULMONARY PROGRESS NOTE REFERRING PHYSICIAN: Carley Luciano MD. SUBJECTIVE: The patient is lying in the bed, head at 45 degrees. Family is at bedside. Overnight events noted. Had MRI of the left upper extremity done, suggested a traumatic humeral fracture, no sign of tumor. Not much cough. No sputum production. No nausea. No vomiting. No diarrhea. No leg pain or leg swelling. OBJECTIVE: GENERAL: In no acute distress. VITAL SIGNS: Temperature is 98, heart rate is 76, respiratory rate is 18, blood pressure 128/71, pulse ox 99% on 3 L nasal cannula. HEENT: Moist mucous membrane. Crowded airway. NECK: Supple. No JVD. LUNGS: Few scattered rhonchi. HEART: S1, S2. ABDOMEN: Soft, nontender. No organomegaly. EXTREMITIES: No edema. Left upper extremity is in sling, tenderness. NEUROLOGIC: Awake and alert. Follows simple command. MEDICATIONS: She is on aspirin 81 mg daily, Ativan 0.5 mg every 6 hours p.r.n., Dilaudid 0.5 mg IV every 4 hours p.r.n., vitamin D 50,000 International Units weekly, DuoNeb every 6 hours, Lamictal 200 mg twice a day, Pepcid 20 mg at bedtime, IV fluid normal saline 75 mL/hour, Tegretol 200 mg 3 times a day, Tylenol p.r.n. basis, and Zofran p.r.n. basis. LABORATORY DATA: Shows hemoglobin 9.6, hematocrit 29.1, WBC 10.7, platelets 310. Sodium 139, potassium 4.9, chloride 104, bicarbonate 28. BUN 18, creatinine 0.5. Glucose 104. Calcium 8.6. Vitamin D 21.2. Microbiology: Blood culture and urine culture, there is no growth. CT of the chest shows left lower lobe spiculated mass. MRI of the left upper extremity suggested severely displaced fracture of the left humeral neck, some fluid collection. IMPRESSION AND PLAN: Status post mechanical fall with a left humeral fracture, chronic obstructive lung disease, pulmonary hypertension, seizure disorder, sleep apnea syndrome with mood disorder, spiculated left lower lung nodule. So far, clinically seems like she has fall-related fracture. I spoke to the patient and family. All the questions answered. According to nursing staff, she is scheduled on [place] for left upper extremity surgery. Her pulmonary status is optimized, although she needs close cardiopulmonary monitoring intraoperatively, especially with chronic lung disease and pulmonary hypertension. Also, seizure precaution. We will do biopsy once the left upper extremity surgery is done. It is highly suspicious for cancer though. Thank you and we will follow with you. Carol Zuñiga MD
[2018-04-01] MEDS: Albuterol-Ipratrop 3 mg / 0.5 (3 ml) UD IH SCH ×4 (01:10→20:51)
--- NOTE | 2018-04-01 04:29 | PN ---
DATE: 03/31/2018 SUBJECTIVE: The patient is a 68-year-old female. Patient was seen and examined at the bedside on 03/31/2018, having sling in the left upper extremity. Otherwise, no nausea, vomiting or diarrhea. No hematuria or hematochezia. No chest pain. No palpitation. No headache. No dizziness. PHYSICAL EXAMINATION: VITAL SIGNS: Temperature 98, heart rate 73, respiratory rate 18, blood pressure 120/70, pulse oximetry 99% on 3 L nasal cannula. HEENT: Head: Normocephalic, atraumatic. Eyes: PERRLA. Extraocular muscles intact. Conjunctivae clear. Nose patent. Mucous membranes moist. NECK: Supple. No carotid bruit. No JVD or thyromegaly. CHEST: Bilaterally symmetrical. HEART: S1, S2 positive. LUNGS: Clear to auscultation. ABDOMEN: Soft, nontender. No organomegaly. EXTREMITIES: No edema. No cyanosis. Left upper extremity is in sling. Range of motion is minimum, tender to touch. NEUROLOGICAL: Patient is awake, alert. Follows simple commands. MEDICATIONS: Aspirin, Ativan, Dilaudid, vitamin D, DuoNeb, Lamictal, Pepcid, IV fluid, Tegretol, Tylenol, Zofran. LABORATORY DATA: Hemoglobin 9.6, hematocrit 29.1, white blood cell 10.7, platelets 310. Sodium 139, potassium 4.9, BUN 18, creatinine 0.5. Glucose 104. Blood culture and urine culture,no growth. ASSESSMENT AND PLAN: Ms. Leann Helm is a 68-year-old lady, status post mechanical fall with left humeral fracture, history of seizures, chronic obstructive lung disease, pulmonary hypertension, sleep apnea syndrome,spiculated left lower lung nodule. So far, clinically looks like bone fracture is due to fall-related fracture not pathological. Patient is scheduled for surgery on Tuesday for left upper extremity surgery. Otherwise gastrointestinal and deep vein thrombosis prophylaxis. Repeat labs. History of heavy smoking, now patient is controlling by herself. Seizure precautions. Neurologist and Orthopedic is on the case. We will follow up. Carley Luciano MD [facility] # [id number] [facility]
[2018-04-01] MEDS: Sodium Chloride 0.9% 1,000 ML IV SCH ×2 (06:52→18:30)
--- NOTE | 2018-04-01 11:09 | CP.PCM.PN ---
Subjective - Date & Time of Evaluation Date of Evaluation: 04/01/18 Time of Evaluation: 11:00 - Subjective Subjective: S- encounter at bedside, friend in attendance;pt with sebvere pain on movement l upper ext. Pt admits she is comfortable in sling Objective - Vital Signs/Intake and Output Vital Signs (last 24 hours): Temp Pulse Resp BP Pulse Ox 98.3 F 86 18 144/62 94 L 04/01/18 06:00 04/01/18 06:00 04/01/18 06:00 04/01/18 06:00 04/01/18 06:00 Intake and Output: 04/01/18 04/01/18 06:59 18:59 Intake Total 480 Balance 480 - Medications Medications: Current Medications Acetaminophen (Tylenol 325mg Tab) 650 mg PO Q4H PRN PRN Reason: Fever >100.4 F Acetaminophen (Tylenol 325mg Tab) 650 mg PO Q4H PRN PRN Reason: Pain, moderate (4-7) Last Admin: 03/31/18 07:04 Dose: 650 mg Albuterol/Ipratropium (Duoneb 3 Mg/0.5 Mg (3 Ml) Ud) 3 ml IH [id number] [facility] Last Admin: 04/01/18 08:12 Dose: 3 ml Aspirin (Aspirin Chewable) 81 mg PO DAILY [facility] Last Admin: 04/01/18 10:57 Dose: 81 mg Carbamazepine (Tegretol) 200 mg PO TID [facility] PRN Reason: Protocol Last Admin: 04/01/18 10:56 Dose: 200 mg Ergocalciferol (Drisdol 50,000 Intl Units Cap) 1 cap PO Q7D [facility] Last Admin: 03/31/18 12:02 Dose: 1 cap Famotidine (Pepcid) 20 mg PO HS [facility] Last Admin: 03/31/18 23:10 Dose: 20 mg Hydromorphone HCl (Dilaudid) 0.5 mg IVP Q4H PRN PRN Reason: Pain, Mild (1-3) Sodium Chloride (Sodium Chloride 0.9%) 1,000 mls @ 75 mls/hr IV .[id number] [facility] Last Admin: 04/01/18 06:52 Dose: 75 mls/hr Lamotrigine (Lamictal) 200 mg PO BID [facility] Last Admin: 04/01/18 10:57 Dose: 200 mg Lorazepam (Ativan) 0.5 mg IVP Q6H PRN; Protocol PRN Reason: Seizure activity Last Admin: 03/30/18 12:44 Dose: 0.5 mg Ondansetron HCl (Zofran Inj) 4 mg IVP Q6 PRN PRN Reason: Nausea/Vomiting - Labs Labs: 03/31/18 06:15 03/31/18 06:15 PT 12.1 SECONDS (9.4-12.5) 03/28/18 23:35 INR 1.06 (0.93-1.08) 03/28/18 23:35 APTT 32.5 Seconds (25.1-36.5) 03/28/18 23:35 - Additional Findings Additional findings: Objkective exam systemic- as per DR Fowler/DR Fraser/DR Zuñiga Musculoskekltal stane/gait- exam defrred pt with swelling and restricted ROM L shoulder sling intyact/N/V- reveals some decreased sensation radial n distrib//possibly mild plexopathy Xray/ CT reveiewed- reveal displaced /angulated proximal humerus fx Fx is pathologui at least in the sense of oseopenia. MRI discussed with Dr Titus, probably NOT metatsasi from lung. Fx is still pathologic in the sense of poor bone quality/osteopenia CT chest freviewed as well Assessment and Plan - Assessment and Plan (Free Text) Assessment: A- displaced/angulatyed L proximal humerus fx (pathologi ) P - to OR Tuesday; allconsults tread, noted and apprexciated. Pt presented thru ER after acute mechanical fall at home. Pros, cons risks and benfits of L shoulder replacement vs ORIF L prox humerus fx discussed. Possibility of mechanicaL FAILURE/INFECTION/THROMBOEMBOLIC DISEASE possibility of secondatry ort teritary surgery discussed Possibility of LATER conversion to L total shoulder replacemnt diswcussed NO PROMISES/GUARANTEES
--- NOTE | 2018-04-01 19:11 | PN ---
DATE: 04/01/2018 PULMONARY PROGRESS NOTE REFERRING PHYSICIAN: Carley Luciano MD. SUBJECTIVE: She is lying in the bed, head at 45 degrees. Left upper extremity is in sling. No headache, no rhinitis. No nausea, no vomiting, no diarrhea. No leg pain or leg swelling. PHYSICAL EXAMINATION: GENERAL: In no acute distress. VITAL SIGNS: Temperature is 98, heart rate is 99, respiratory rate is 20, blood pressure 144/73, pulse ox 94% on nasal cannula. HEENT: Moist mucous membranes. Small oral cavity. Crowded airway. NECK: Supple. No JVD. LUNGS: Have a fair airflow with scattered rhonchi and wheezing. HEART: S1 and S2. ABDOMEN: Soft, nontender. No organomegaly. EXTREMITIES: Left upper extremity is in sling. NEUROLOGIC: Awake, alert, and follows simple command. MEDICATIONS: She is on aspirin 81 mg daily, Ativan 0.5 mg IV every 6 hours p.r.n., also on DuoNeb every 6 hours, Lamictal 200 mg twice a day, Pepcid 20 mg at bedtime, IV fluid normal saline 75 mL per hour, Tegretol 200 mg three times a day, Tylenol p.r.n. basis, Zofran p.r.n. basis. LABORATORY DATA: Reviewed. No new lab is available since yesterday. Microbiology: Blood culture and urine culture, there is no growth. IMPRESSION AND PLAN: Status post mechanical fall with left humeral displaced fracture, chronic obstructive lung disease, pulmonary hypertension, seizure disorder, sleep apnea syndrome, mood disorder. Incidentally found to have a left lower lobe spiculated mass. Pulmonary status is optimized for surgery. Waiting for surgery on Tuesday. Continue IV and inhaled bronchodilator, pain management, gastric prophylaxis, deep venous thrombosis prophylaxis. After left upper extremity surgery, will need lung biopsy once stable from the surgery. Thank you and we will follow with you. Carol Zuñiga MD
[2018-04-02] MEDS: Albuterol-Ipratrop 3 mg / 0.5 (3 ml) UD IH SCH ×4 (02:26→20:55)
--- NOTE | 2018-04-02 19:31 | PN ---
DATE: 04/02/2018 PULMONARY PROGRESS NOTE REFERRING PHYSICIAN: Carley Luciano MD. SUBJECTIVE: She is out of bed to chair. Left upper extremity is in sling. No headache. No rhinitis. Breathing is better. No nausea. No vomiting, diarrhea, leg pain, leg swelling. OBJECTIVE: GENERAL: In no acute distress. VITAL SIGNS: Temperature is 98, heart is 90, respiratory rate is 20, blood pressure 136/86, pulse ox 96% on room air. HEENT: Moist mucous membranes. Small oral cavity. Crowded airway. NECK: Supple. No JVD. LUNGS: Have a prolonged expiratory phase, overall fair airflow. HEART: S1 and S2. ABDOMEN: Soft, nontender. No organomegaly. EXTREMITIES: No edema. Has upper extremity in sling. NEUROLOGIC: Awake and alert. Follows simple command. MEDICATIONS: She is on Ativan 0.5 mg every 6 hours p.r.n., vitamin D is every 7 days, DuoNeb every 6 hours, Lamictal is 200 mg twice a day, Pepcid is at 20 mg at bedtime, Tegretol 200 mg three times a day, Tylenol p.r.n., Zofran p.r.n. basis. LABORATORY DATA: Shows no new lab is available since yesterday. Microbiology: Blood culture, urine culture unremarkable. IMPRESSION AND PLAN: Mechanical fall with left humeral fracture, obstructive lung disease, pulmonary retention, seizure disorder, may have sleep apnea syndrome, mood disorder, also found to have a left lung speculated mass. Pulmonary status optimized for possible surgery tomorrow. Once stable on a surgical point of view, we will go ahead and get a CT-guided needle biopsy of the lung mass. Continue bronchodilator. Keep heat at 45 degrees. Also, has a component of pulmonary hypertension. Need close cardiopulmonary monitoring during anesthesia and postsurgical time. Thank you and we will follow with you. Carol Zuñiga MD
--- NOTE | 2018-04-02 22:25 | PN ---
DATE: 04/02/2018 SUBJECTIVE: Patient is 68-year-old female. Patient is seen and examined at the bedside, looking comfortable, still having pain in the left shoulder. Appetite is appropriate. Has good sleep. Bowel movement is okay. No fever. No chills. PHYSICAL EXAMINATION: VITAL SIGNS: Temperature 98.2, pulse 90, blood pressure 136/56, respiratory rate 20, pulse oxygenation is 96%. HEENT: Head: Normocephalic, atraumatic. Eyes: PERRLA. Extraocular muscles intact. Conjunctivae clear. Nose: Patent. Mucous membrane moist. NECK: Supple. No carotid bruit. No JVD or thyromegaly. CHEST: Bilaterally symmetrical. HEART: S1 and S2 positive. LUNGS: Clear to auscultation. ABDOMEN: Soft. Bowel sounds positive. No organomegaly. EXTREMITIES: Lower extremities, no edema, no cyanosis. Left upper extremity, range of motion is decreased, hanging with sling and tender to touch. NEUROLOGIC: Patient is awake, alert, oriented x3. MEDICATIONS: Aspirin, Ativan, DuoNeb, Lamictal, Pepcid, NS, Tegretol, Tylenol, Zofran. LABORATORY DATA: White blood cells 10.7, hemoglobin 9.6, hematocrit 29.1, platelets 310. Sodium noted , potassium 4.9, BUN 18, creatinine 0.5. Vitamin D 21.2. ASSESSMENT AND PLAN: Mrs. Leann Helm is a 68-year-old female with anemia; history of leukocytosis, improved; hyperglycemia; vitamin D deficiency; proteinuria. Drug screening negative. History of seizures, was under care of Dr. Soliman as outpatient. Had mechanical fall with left humeral displaced fracture, chronic obstructive lung disease, pulmonary hypertension, sleep apnea syndrome, mood disorder, left lower lobe spiculated mass. According to Dr. Zuñiga, pulmonary status is optimized for surgery. Tuesday, patient will go for surgery. We will repeat labs. Gastrointestinal and deep venous thrombosis prophylaxis. Seizure precautions. We will follow up. Carley Luciano MD [facility]
--- NOTE | 2018-04-03 01:05 | PN ---
DATE: 04/01/2018 The patient is a 68-year-old female. SUBJECTIVE: The patient was seen and examined at the bedside. Looking comfortable. Sleepy, arousable. No fever. No chills. No nausea, vomiting or diarrhea. No hematuria or hematochezia. No swelling of the leg. No chest pain. No palpitation. No headache. No dizziness. PHYSICAL EXAMINATION: VITAL SIGNS: Temperature 98, heart rate 90, respiratory rate 20, blood pressure 130/80 , pulse oximetry 93% on room air. HEENT: Head, normocephalic and atraumatic. Eyes, PERRLA. Extraocular muscles intact. Conjunctivae clear. Nose patent. Mucous membrane moist. NECK: Supple. No carotid bruit. No JVD or thyromegaly. CHEST: Bilaterally symmetrical. HEART: S1, S2 positive. LUNGS: Clear to auscultation. ABDOMEN: Soft. Bowel sounds present. No organomegaly. EXTREMITIES: No edema, no cyanosis. NEUROLOGIC: Patient is sleepy, arousable. MEDICATIONS: Ativan, vitamin D, DuoNeb, Lamictal, Pepcid, Tegretol, Tylenol and Zofran. LABORATORY DATA: We do not have recent lab today, but I reviewed old labs. ASSESSMENT AND PLAN: Ms. Leann Helm is a 68-year-old female with history of fall, mechanical with left humeral fracture with obstructive lung disease, pulmonary retention, seizure disorders, has sleep apnea syndrome, mood disorders, has left lung spiculated mass. Patient is comfortable, eating very well. Orthopedic is on the case. Repeat labs. We will follow up. Carley Luciano MD [id number]
[2018-04-03] MEDS: Albuterol-Ipratrop 3 mg / 0.5 (3 ml) UD IH SCH ×4 (02:45→20:40)
[2018-04-03 06:42] LABS: MEAN CELL VOLUME 90.5 fl (80.0-105.0); MEAN CORPUSCULAR HEMOGLOBIN 29.5 pg (25.0-35.0); MEAN CORPUSCULAR HGB CONC 32.6 g/dl (31.0-37.0); MEAN PLATELET VOLUME 8.3 fl (7.0-11.0); RBC 3.05 10^6/uL (3.5-6.1); RED CELL DISTRIBUTION WIDTH 13.6 % (11.5-14.5); WHITE BLOOD COUNT 8.2 10^3/ul (4.5-11.0)
--- NOTE | 2018-04-03 06:59 | CP.PCM.PN ---
Subjective - Date & Time of Evaluation Date of Evaluation: 04/03/18 Time of Evaluation: 06:40 - Subjective Subjective: Awake,feels okay,anxious about surgery, denies any seizure activity, denies chest pain, denies shortness of breath Reason for consultation and follow up: Cardiac evaluation, post fall, left humerus fracture, seizure disorder, hyperlipidemia, current heavy smoker, COPD Seen and examined by me and Dr. Leigh Objective - Vital Signs/Intake and Output Vital Signs (last 24 hours): Temp Pulse Resp BP Pulse Ox 98.4 F 94 H 20 135/78 95 04/02/18 22:00 04/02/18 22:00 04/02/18 22:00 04/02/18 22:00 04/02/18 22:00 Intake and Output: 04/02/18 04/03/18 18:59 06:59 Intake Total 7880 1500 Balance 7880 1500 - Medications Medications: Current Medications Acetaminophen (Tylenol 325mg Tab) 650 mg PO Q4H PRN PRN Reason: Fever >100.4 F Last Admin: 04/02/18 11:36 Dose: 650 mg Acetaminophen (Tylenol 325mg Tab) 650 mg PO Q4H PRN PRN Reason: Pain, moderate (4-7) Last Admin: 03/31/18 07:04 Dose: 650 mg Albuterol/Ipratropium (Duoneb 3 Mg/0.5 Mg (3 Ml) Ud) 3 ml IH [id number] [facility] Last Admin: 04/03/18 02:45 Dose: 3 ml Carbamazepine (Tegretol) 200 mg PO TID SONAL PRN Reason: Protocol Last Admin: 04/02/18 18:11 Dose: 200 mg Ergocalciferol (Drisdol 50,000 Intl Units Cap) 1 cap PO Q7D [facility] Last Admin: 03/31/18 12:02 Dose: 1 cap Famotidine (Pepcid) 20 mg PO HS [facility] Last Admin: 04/02/18 21:35 Dose: 20 mg Lamotrigine (Lamictal) 200 mg PO BID [facility] Last Admin: 04/02/18 18:12 Dose: 200 mg Lorazepam (Ativan) 0.5 mg IVP Q6H PRN; Protocol PRN Reason: Seizure activity Last Admin: 03/30/18 12:44 Dose: 0.5 mg Ondansetron HCl (Zofran Inj) 4 mg IVP Q6 PRN PRN Reason: Nausea/Vomiting - Labs Labs: 03/31/18 06:15 03/31/18 06:15 PT 12.1 SECONDS (9.4-12.5) 03/28/18 23:35 INR 1.06 (0.93-1.08) 03/28/18 23:35 APTT 32.5 Seconds (25.1-36.5) 03/28/18 23:35 - Constitutional Appears: No Acute Distress - Eye Exam Eye Exam: Normal appearance - ENT Exam ENT Exam: Mucous Membranes Moist - Respiratory Exam Respiratory Exam: Clear to Ausculation Bilateral, NORMAL BREATHING PATTERN - Cardiovascular Exam Cardiovascular Exam: +S1, +S2 - GI/Abdominal Exam GI & Abdominal Exam: Soft, Normal Bowel Sounds - Exam Additional comments: continent - Extremities Exam Extremities Exam: Normal Capillary Refill Additional comments: left arm sling - Neurological Exam Neurological Exam: Alert, Awake, Oriented x3 - Psychiatric Exam Psychiatric exam: Normal Affect, Normal Mood - Skin Skin Exam: Intact, Normal Color, Warm Assessment and Plan - Assessment and Plan (Free Text) Assessment: A 68 year old female who came in to the Er due to left shoulder pain for 3 days with history of fall 3 days ago prior to admission. History of seizure disorder,high cholesterol, current smoker,COPD. recent CT of chest showed left lower lobe lung nodule. Seizure activity with this admission. Neuro consult. Plan: Anxious about surgery,reassured For surgery today for left humerus fracture Cardiac status stable Denies chest pain Clear for humerus fracture surgery from cardiac standpoint, moderate risk No more seizure activity Stable blood pressure and heart rate Continue current treatment Continue current medications Will follow up Plan and treatment discussed with Dr. Ley
[2018-04-03 07:02] LABS: BLOOD UREA NITROGEN 16 mg/dL (7-21); CALCIUM 9.1 mg/dL (8.4-10.5); GFR AFRICAN-AMERICAN > 60; GFR NON-AFRICAN AMERICAN > 60
[2018-04-03 07:07] LABS: INR 1.03 (0.93-1.08); PARTIAL THROMBOPLASTIN TIME 31.6 Seconds (25.1-36.5); PROTHROMBIN TIME 11.8 SECONDS (9.4-12.5)
[2018-04-03] MEDS ORDERED: Propofol 10 mg/ml Inj (20 ML) ONE (12:03)
[2018-04-03] MEDS ORDERED: Rocuronium 10 mg/ml (5 ml) ONE (12:04)
[2018-04-03] MEDS ORDERED: Midazolam 2 MG/2 ML VIAL ONE (12:04)
--- NOTE | 2018-04-03 12:07 | PN ---
DATE: 04/03/2018 PULMONARY PROGRESS NOTE REFERRING PHYSICIAN: Carley Luciano MD. SUBJECTIVE: She is lying in the bed, head at 45 degrees. Left upper extremity is in sling. No headache. No rhinitis. No significant cough. No chest pain. No abdominal pain. No dysuria. No leg pain or leg swelling. OBJECTIVE: GENERAL: In no acute distress. VITAL SIGNS: Temperature is 98, heart rate is 84, respiratory is 18, blood pressure 134/98, pulse ox 94% on nasal cannula. HEENT: Moist mucous membrane. Crowded airway. NECK: Supple. No JVD. LUNGS: Have a fair airflow with few rhonchi. HEART: S1 and S2. ABDOMEN: Soft, nontender. No organomegaly. EXTREMITIES: No edema. Left upper extremity is in sling. NEUROLOGIC: Awake and alert. Follows simple command. MEDICATIONS: She is on Ativan 0.5 mg every 6 hours p.r.n., vitamin D 50,000 units every 7 days, DuoNeb every 6 hours [id number], lamotrigine 200 mg twice a day, Pepcid 20 mg at bedtime, Tegretol 200 mg three times a day, Tylenol p.r.n., Zofran p.r.n. basis. LABORATORY DATA: Shows hemoglobin 9, hematocrit 27.6, WBC 8.2, platelet count is 392. INR is 1.03, PTT is 32. Sodium 142, potassium 4.4, chloride 104, bicarbonate is 30, BUN 16, creatinine 0.6, glucose is 87, calcium is 9.1. Microbiology: Blood culture, urine culture, there is no growth. IMPRESSION AND PLAN: Mechanical fall with left humeral fracture, obstructive lung disease, pulmonary hypertension, seizure disorder, sleep apnea syndrome, mood disorder, left lung spiculated mass. Pulmonary point of view, studies optimized for surgery. Needs close cardiopulmonary monitoring with possible sleep apnea and pulmonary hypertension. Will need lung biopsy once stable with the left humeral fracture. Gastric prophylaxis. Sequential compression device to lower extremity. Follow up labs in the morning. Thank you and we will follow up with you. Carol Zuñiga MD [facility] # [id number]
--- NOTE | 2018-04-03 15:14 | NM ---
PROCEDURE: Whole Body Bone Scan HISTORY: r/o mets COMPARISON: None available. TECHNIQUE: Following administration of 21.6 miCu of Tc MDP multiplanar whole body images were obtained. FINDINGS: Evidence for bony metastatic disease: None. Degenerative uptake: None. Physiologic uptake: Normal physiologic activity in the kidneys. Other findings: Recent fracture of the left proximal humerus shows mild uptake IMPRESSION: No evidence of bony metastatic disease.
--- NOTE | 2018-04-03 17:30 | CP.PCM.PN ---
Subjective - Date & Time of Evaluation Date of Evaluation: 04/03/18 Time of Evaluation: 17:27 - Subjective Subjective: Orthopedic follow up Surgery cancelled today as hgb 9, and as per Dr. Hedrick, walter needs transfusion prior to surgery. Patient offered surgery tomorrow at 730am, and patient refused, states she will go with the doctor that Dr. Rao recommends. Dr. Rao cancelled consultation with Dr. Hedrick after surgery was cancelled and new consultation placed for Dr. Weinberg. Currently patient states pain is controlled, she is anxious to have surgery done as soon as possible. Denies numbness/tingling. Denies CP/SOB/dizziness Objective - Vital Signs/Intake and Output Vital Signs (last 24 hours): Temp Pulse Resp BP Pulse Ox 98.2 F 96 H 20 121/69 94 L 04/03/18 16:59 04/03/18 16:59 04/03/18 16:59 04/03/18 16:59 04/03/18 14:00 Intake and Output: 04/03/18 04/03/18 06:59 18:59 Intake Total 1500 360 Balance 1500 360 - Medications Medications: Current Medications Acetaminophen (Tylenol 325mg Tab) 650 mg PO Q4H PRN PRN Reason: Fever >100.4 F Last Admin: 04/02/18 11:36 Dose: 650 mg Acetaminophen (Tylenol 325mg Tab) 650 mg PO Q4H PRN PRN Reason: Pain, moderate (4-7) Last Admin: 03/31/18 07:04 Dose: 650 mg Albuterol/Ipratropium (Duoneb 3 Mg/0.5 Mg (3 Ml) Ud) 3 ml IH [id number] [facility] Last Admin: 04/03/18 13:28 Dose: 3 ml Carbamazepine (Tegretol) 200 mg PO TID SONAL PRN Reason: Protocol Last Admin: 04/03/18 14:47 Dose: 200 mg Ergocalciferol (Drisdol 50,000 Intl Units Cap) 1 cap PO Q7D [facility] Last Admin: 03/31/18 12:02 Dose: 1 cap Famotidine (Pepcid) 20 mg PO HS [facility] Last Admin: 04/02/18 21:35 Dose: 20 mg Lamotrigine (Lamictal) 200 mg PO BID [facility] Last Admin: 04/03/18 09:46 Dose: 200 mg Lorazepam (Ativan) 0.5 mg IVP Q6H PRN; Protocol PRN Reason: Seizure activity Last Admin: 03/30/18 12:44 Dose: 0.5 mg Ondansetron HCl (Zofran Inj) 4 mg IVP Q6 PRN PRN Reason: Nausea/Vomiting - Labs Labs: 04/03/18 06:15 04/03/18 06:15 PT 11.8 SECONDS (9.4-12.5) 04/03/18 06:15 INR 1.03 (0.93-1.08) 04/03/18 06:15 APTT 31.6 Seconds (25.1-36.5) 04/03/18 06:15 - Extremities Exam Additional comments: LUE: +ROM fingers, sensation intact med/rad/ulnar nerves, +radial pulse Assessment and Plan (1) Fracture of humerus, proximal, left, closed Assessment & Plan: Bone scan shows no evidence of bony metastatic disease Surgery cancelled today due to hgb [address] Hedrick. Patient receiving PRBC transfusion at this time. Per Dr. Luciano, orthopedic consultation changed to Dr. Weinberg. Dr. Hedrick aware of change in orthopedic surgeon. Dr. Weinberg accepted consult. Patient NPO p MN for ORIF of left prox humerus fx at 11am 04/[address] We[address]. Case discussed with him in detail. T&C 2 units for tomorrow. Risks/benefits/alt explained to patient in detail, verbalizes understanding, signs consent for procedure. She is AAOx3. cont sling Status: Acute (2) Lung nodule Status: Acute
[2018-04-03 23:30] LABS: URINE BILIRUBIN NEGATIVE (NEGATIVE); URINE BLOOD NEGATIVE (NEGATIVE); URINE GLUCOSE (UA) NEGATIVE (NEGATIVE); URINE LEUKOCYTE ESTERASE NEGATIVE Leu/uL (NEGATIVE); URINE PROTEIN 100 mg/dL (<30 mg/dL); URINE UROBILINOGEN 0.2 E.U./dL (<1 E.U./dL)
[2018-04-03 23:31] LABS: URINE APPEARANCE CLEAR (CLEAR); URINE COLOR YELLOW (YELLOW)
[2018-04-03 23:50] LABS: URINE RBC 0 - 2 /hpf (0-2); URINE WBC 0 - 2 /hpf (0-6)
--- NOTE | 2018-04-04 00:42 | PN ---
DATE: 04/03/2018 SUBJECTIVE: The patient is a 68-year-old female. The patient was seen and examined on the bedside on 04/03/2018. Looking comfortable. Still having pain in the left upper extremity. Today, she is supposed to go for surgery, but according to the surgeon, hemoglobin is low, cannot be done. No significant cough. No hematuria or hematochezia. PHYSICAL EXAMINATION: VITAL SIGNS: Temperature 98, heart rate 84, respiratory rate 18, blood pressure 134/98, pulse oximetry 94% on nasal cannula. HEENT: Head normocephalic, atraumatic. Eyes PERRLA. Extraocular muscles intact. Conjunctivae clear. Nose patent. NECK: Supple. No carotid bruit. No JVD or thyromegaly. CHEST: Bilaterally symmetrical. HEART: S1 and S2 positive. LUNGS: Fair airflow with few rhonchi. ABDOMEN: Soft, nontender. No organomegaly. EXTREMITIES: No edema. No cyanosis. NEUROLOGICAL: The patient is awake and alert. Follow simple commands. LABORATORY DATA: Hemoglobin 9, hematocrit 27.6, white blood cells 8.2, platelets 329. INR 1.03. Sodium 142, potassium 4.4, BUN 16, creatinine 0.6. MEDICATIONS: Ativan, vitamin B, DuoNeb, Pepcid, Tegretol, Tylenol, Zofran. ASSESSMENT AND PLAN: Ms. Leann Helm is a 68-year-old female with mechanical fall with left humeral fracture, obstructive lung disease, pulmonary hypertension, seizure disorder, sleep apnea syndrome, mood disorder, left lung spiculated mass, history of anemia, 2 units of packed red blood cells given. According to Dr. Zuñiga, pulmonary point of view, studies optimized for surgery. Need close cardiopulmonary monitoring and possible sleep apnea and pulmonary hypertension. When the patient become stable, we will proceed with a lung biopsy. Has left humerus fracture. Gastric and deep venous thrombosis prophylaxis. The patient is medically clear for surgery. They read Dr. Zuñiga's notes. Added neurologist's notes and Dr. Mac's notes. Repeats labs. We will follow up. Carley Luciano MD [facility] # [id number]
[2018-04-04] MEDS: Albuterol-Ipratrop 3 mg / 0.5 (3 ml) UD IH SCH ×4 (02:40→20:16)
[2018-04-04 06:39] LABS: MEAN CELL VOLUME 88.1 fl (80.0-105.0); MEAN CORPUSCULAR HEMOGLOBIN 29.4 pg (25.0-35.0); MEAN CORPUSCULAR HGB CONC 33.3 g/dl (31.0-37.0); MEAN PLATELET VOLUME 8.4 fl (7.0-11.0); RBC 3.85 10^6/uL (3.5-6.1); RED CELL DISTRIBUTION WIDTH 14.9 % (11.5-14.5); WHITE BLOOD COUNT 8.5 10^3/ul (4.5-11.0)
[2018-04-04 06:50] LABS: HEMOGLOBIN 11.3 g/dL (12.0-16.0)
[2018-04-04 06:54] LABS: BLOOD UREA NITROGEN 22 mg/dL (7-21); CALCIUM 9.1 mg/dL (8.4-10.5); GFR AFRICAN-AMERICAN > 60; GFR NON-AFRICAN AMERICAN > 60
--- NOTE | 2018-04-04 06:57 | CP.PCM.PN ---
Subjective - Date & Time of Evaluation Date of Evaluation: 04/04/18 Time of Evaluation: 06:15 - Subjective Subjective: Easily awaken sleeping, denies chest pain, denies shortness of breath Reason for consultation and follow up: Cardiac evaluation, post fall, left humerus fracture, seizure disorder, hyperlipidemia, current heavy smoker, COPD Seen and examined by me and Dr. Leigh Objective - Vital Signs/Intake and Output Vital Signs (last 24 hours): Temp Pulse Resp BP Pulse Ox 98.2 F 80 18 152/82 H 96 04/04/18 01:30 04/04/18 01:30 04/04/18 01:30 04/04/18 01:30 04/03/18 22:42 Intake and Output: 04/03/18 04/04/18 18:59 06:59 Intake Total 360 790 Balance 360 790 - Medications Medications: Current Medications Acetaminophen (Tylenol 325mg Tab) 650 mg PO Q4H PRN PRN Reason: Fever >100.4 F Last Admin: 04/02/18 11:36 Dose: 650 mg Acetaminophen (Tylenol 325mg Tab) 650 mg PO Q4H PRN PRN Reason: Pain, moderate (4-7) Last Admin: 03/31/18 07:04 Dose: 650 mg Albuterol/Ipratropium (Duoneb 3 Mg/0.5 Mg (3 Ml) Ud) 3 ml IH [id number] [facility] Last Admin: 04/04/18 02:40 Dose: 3 ml Carbamazepine (Tegretol) 200 mg PO TID SONAL PRN Reason: Protocol Last Admin: 04/03/18 17:59 Dose: 200 mg Ergocalciferol (Drisdol 50,000 Intl Units Cap) 1 cap PO Q7D [facility] Last Admin: 03/31/18 12:02 Dose: 1 cap Famotidine (Pepcid) 20 mg PO HS [facility] Last Admin: 04/03/18 21:26 Dose: 20 mg Lamotrigine (Lamictal) 200 mg PO BID [facility] Last Admin: 04/03/18 17:59 Dose: 200 mg Lorazepam (Ativan) 0.5 mg IVP Q6H PRN; Protocol PRN Reason: Seizure activity Last Admin: 03/30/18 12:44 Dose: 0.5 mg Ondansetron HCl (Zofran Inj) 4 mg IVP Q6 PRN PRN Reason: Nausea/Vomiting - Labs Labs: 04/04/18 06:15 04/04/18 06:15 PT 11.8 SECONDS (9.4-12.5) 04/03/18 06:15 INR 1.03 (0.93-1.08) 04/03/18 06:15 APTT 31.6 Seconds (25.1-36.5) 04/03/18 06:15 - Constitutional Appears: In Acute Distress - Eye Exam Eye Exam: Normal appearance - ENT Exam ENT Exam: Mucous Membranes Moist - Respiratory Exam Respiratory Exam: Decreased Breath Sounds, NORMAL BREATHING PATTERN - Cardiovascular Exam Cardiovascular Exam: +S1, +S2 - GI/Abdominal Exam GI & Abdominal Exam: Soft, Normal Bowel Sounds - Exam Additional comments: continent - Extremities Exam Extremities Exam: Normal Capillary Refill Additional comments: left arm sling - Neurological Exam Neurological Exam: Alert, Awake, Oriented x3 - Psychiatric Exam Psychiatric exam: Normal Affect, Normal Mood - Skin Skin Exam: Intact, Normal Color, Warm Assessment and Plan - Assessment and Plan (Free Text) Assessment: A 68 year old female who came in to the Er due to left shoulder pain for 3 days with history of fall 3 days ago prior to admission. History of seizure disorder,high cholesterol, current smoker,COPD. recent CT of chest showed left lower lobe lung nodule. Seizure activity with this admission. Neuro consult. Plan: Surgery postponed yesterday due to low hemoglobin Transfused 2 units PRBC Repeat H/H- 11.3/33.9 For surgery for left humerus fracture today Cardiac status stable Denies chest pain No more seizure activity Stable blood pressure and heart rate Continue current treatment Continue current medications Will follow up post operatively Plan and treatment discussed with Dr. Leigh
[2018-04-04] MEDS ORDERED: Bupivacaine 0.5% Inj(30mL) ONE (10:40)
[2018-04-04] MEDS ORDERED: Propofol 10 mg/ml Inj (20 ML) ONE (11:28)
[2018-04-04] MEDS ORDERED: Midazolam 2 MG/2 ML VIAL ONE (11:28)
[2018-04-04] MEDS ORDERED: Lidocaine 2% Inj (20ml) ONE (11:28)
[2018-04-04] MEDS ORDERED: Rocuronium 10 mg/ml (5 ml) ONE (11:29)
[2018-04-04] MEDS ORDERED: ePHEDrine 50 mg/ml Inj ONE (13:15)
[2018-04-04] MEDS ORDERED: HYDROmorphone 0.5 mg/0.5 ml ISec IVP PRN (17:27)
[2018-04-04] MEDS ORDERED: Lactated Ringer's 1,000 ML IV SCH (17:45)
--- NOTE | 2018-04-04 18:05 | RAD ---
PROCEDURE: Radiographs of the left humerus. She HISTORY: pt in pacu, s/p ORIF COMPARISON: 03/28/2018 CT left shoulder FINDINGS: BONES: Normal. No fractureSatisfactory postoperative status following open reduction internal fixation of a fracture at the junction of the left humeral neck and head. The head of the humerus appears subluxed relative to the glenoid on this single view. Or focal lesion. SOFT TISSUES: Air identified within the soft tissues at the surgical site. OTHER FINDINGS: None. IMPRESSION: Major fracture fragments are anatomically aligned following open reduction internal fixation. Subluxed right humeral head relative to the glenoid identified.
--- NOTE | 2018-04-04 19:46 | OP ---
PROCEDURE DATE: 04/04/2018 PREOPERATIVE DIAGNOSIS: Left proximal humerus fracture. POSTOPERATIVE DIAGNOSIS: Left proximal humerus fracture. PROCEDURE: Open reduction and internal fixation of left proximal humerus fracture. SURGEON: Dov Weinberg MD. SEISMIC PROSPECTING OBSERVER HELPER: Dr. Weinberg was assisted by Monique Bernstein, the physician bilingual medical assistant. Ms. Bernstein was scrubbed and present throughout the entire case and assisted in patient positioning, retraction throughout the case, insertion of the implant and wound closure. TYPE OF ANESTHESIA: General. COMPLICATIONS: None. ESTIMATED BLOOD LOSS: 350 mL. IMPLANT: Synthes proximal humeral locking plate. INDICATION FOR PROCEDURE: This is a 68-year-old female, who approximately 1 week ago presented status post fall with left shoulder pain. Clinical and radiographic examination was consistent with a displaced left proximal humerus fracture. Recommendations are for open reduction and internal fixation of the fracture once the patient is medically optimized. The risks, benefits and alternatives of procedure were discussed with the patient and the informed consent was obtained. DESCRIPTION OF PROCEDURE: After the surgical site was signed and verified in the preoperative holding area, the patient was taken to the operating room and placed supine on the operating room table. After administration of general anesthesia, the patient received 2 g of Ancef IV. The patient was positioned in the beach chair position. Care was taken to make sure all bony prominences and nerves were well padded and protected. Venodyne boots were placed on both lower extremities and the left upper extremity was prepped and draped in usual sterile fashion. The bony and soft tissue landmarks were identified about the left shoulder and approximately 10 cm oblique incision was made over the deltopectoral groove. Soft tissue was dissected down to the deltopectoral interval. The was identified and dissected and retracted medially. At this point, the interval was developed down to the fracture site. The patient was noted to have a significant fracture organized hematoma and this was all evacuated and the wound was copiously irrigated. At this point, fracture pad was evaluated. The fracture fragments were noted to be extremely osteoporotic, but the decision was made to proceed with an open reduction and internal fixation. An open reduction was performed and this was checked using the image intensifier in both the AP and lateral planes. Satisfied with the reduction, first #2 and #5 FiberWire sutures were passed through the rotator cuff through its bony attachments to later tie them down to the plate. Once all the sutures were passed, a Synthes 3-hole lateral proximal humerus plate was applied and held in place with K wires. Position of plate was checked using the image intensifier. Satisfied, the fracture was then fixed using 3 locking screws in the distal fragment and 4 screws in the humeral head fragment. Due to the poor quality of the bone, further screws were not placed and the proximal fixation was supplemented with the sutures, which were then passed through the proximal humeral plate and tied. Once both the tuberosity sutures were passed, the K-wires were removed and the arm was taken through a range of motion. The fracture was noted to move as one and in good position. Satisfied, the wound was then copiously irrigated and closed in a layered fashion. A sterile dressing was applied and a shoulder immobilizer was placed. The patient was awaken from the procedure and taken to the recovery room in stable condition. Dov Weinberg MD
--- NOTE | 2018-04-04 20:15 | PCM.SURG1 ---
Surgeon's Initial Post Op Note - Surgeon's Notes Surgeon: Humza Weinberg MD Gas Well Pumper: Lala fuller PA-C Type of Anesthesia: General Endo Anesthesia Administered By: Dr. Chery/Harpal Pre-Operative Diagnosis: Left proximal humerus fracture Operative Findings: see full noted Post-Operative Diagnosis: same Operation Performed: Left proximal humerus ORIF Specimen/Specimens Removed: none Estimated Blood Loss: EBL {In ML}: 400 Blood Products Given: N/A Drains Used: No Drains Post-Op Condition: Fair Date of Surgery/Procedure: 04/04/18 Time of Surgery/Procedure: 20:15
[2018-04-04 22:32] LABS: HEMOGLOBIN 9.4 g/dL (12.0-16.0)
[2018-04-05] MEDS: Albuterol-Ipratrop 3 mg / 0.5 (3 ml) UD IH SCH ×4 (01:38→19:53)
--- NOTE | 2018-04-05 02:07 | PN ---
DATE: 04/04/2018 PULMONARY PROGRESS NOTE REFERRING PHYSICIAN: Dr. Luciano. SUBJECTIVE: Lying in the bed, getting ready for the surgery, night was unremarkable. No headache, no rhinitis. No nausea. No vomiting or diarrhea. No leg pain or leg swelling. Left upper extremity is in sling. OBJECTIVE: GENERAL: In no acute distress. VITAL SIGNS: Temperature is 98, heart rate is 101, respiratory rate is 20, blood pressure 132/66, pulse ox 97% on nasal cannula. HEENT: Moist mucous membrane. Crowded airway. NECK: Supple. No JVD. LUNGS: Has fair airflow with rhonchi. HEART: S1 and S2. ABDOMEN: Soft, nontender. No organomegaly. EXTREMITIES: No edema. Left upper extremity is in sling. NEUROLOGIC: Awake and alert, follows simple command. MEDICATIONS: She is on Ativan 0.5 mg every 6 hours p.r.n., Dilaudid 0.5 mg every 4 hours p.r.n., vitamin D 50,000 units weekly, DuoNeb every 6 hours, Lamictal 200 mg twice a day, Pepcid 20 mg at bedtime, Percocet 5/325 one tab every 4 hours p.r.n., Tegretol 200 mg three times a day, Tylenol p.r.n. basis, Zofran p.r.n. basis. LABORATORY DATA: Shows hemoglobin 11.3, hematocrit 33.9, WBC 8.5, platelet is 389. Sodium 142, potassium 4.7, chloride 103, bicarbonate 31, BUN 22, creatinine 0.6, glucose 90, calcium is 9.1. IMPRESSION AND PLAN: Status post mechanical fall with left humeral fracture with displacement, chronic obstructive lung disease, has a left lung mass, pulmonary hypertension, seizure disorder, may have a sleep apnea syndrome, for open reduction of the left humerus today. Pulmonary point of view, pulmonary status optimized inhaled bronchodilator. Gastric prophylaxis. Sequential compression devices to lower extremities. Followup labs in the morning. Thank you and we will follow up with you. Carol Zuñiga MD [facility] # [id number]
[2018-04-05] MEDS: Oxycodone/Acetaminophen 5/325 mg Tab PO PRN ×2 (05:54→12:57)
--- NOTE | 2018-04-05 05:56 | CP.PCM.PN ---
Subjective - Date & Time of Evaluation Date of Evaluation: 04/05/18 Time of Evaluation: 06:20 - Subjective Subjective: Awake,complaining of pain on left arm, denies chest pain, denies shortness of breath Reason for consultation and follow up: Cardiac evaluation, post fall, left humerus fracture, seizure disorder, hyperlipidemia, current heavy smoker, COPD, post ORIF of left humerus fracture Seen and examined by me and Dr. Leigh Objective - Vital Signs/Intake and Output Vital Signs (last 24 hours): Temp Pulse Resp BP Pulse Ox 97.9 F 101 H 19 147/56 L 100 04/04/18 21:23 04/04/18 21:23 04/04/18 21:23 04/04/18 21:23 04/04/18 21:23 Intake and Output: 04/04/18 04/05/18 18:59 06:59 Intake Total 75 Balance 75 - Medications Medications: Current Medications Acetaminophen (Tylenol 325mg Tab) 650 mg PO Q4H PRN PRN Reason: Fever >100.4 F Last Admin: 04/02/18 11:36 Dose: 650 mg Acetaminophen (Tylenol 325mg Tab) 650 mg PO Q4H PRN PRN Reason: Pain, moderate (4-7) Last Admin: 03/31/18 07:04 Dose: 650 mg Albuterol/Ipratropium (Duoneb 3 Mg/0.5 Mg (3 Ml) Ud) 3 ml IH [id number] [facility] Last Admin: 04/05/18 01:38 Dose: 3 ml Carbamazepine (Tegretol) 200 mg PO TID [facility] PRN Reason: Protocol Last Admin: 04/04/18 19:01 Dose: 200 mg Ergocalciferol (Drisdol 50,000 Intl Units Cap) 1 cap PO Q7D [facility] Last Admin: 03/31/18 12:02 Dose: 1 cap Famotidine (Pepcid) 20 mg PO HS [facility] Last Admin: 04/04/18 21:17 Dose: 20 mg Hydromorphone HCl (Dilaudid) 0.5 mg IVP Q4H PRN PRN Reason: Pain, severe (8-10) Last Admin: 04/05/18 03:46 Dose: 0.5 mg Lamotrigine (Lamictal) 200 mg PO BID [facility] Last Admin: 04/04/18 18:53 Dose: 200 mg Lorazepam (Ativan) 0.5 mg IVP Q6H PRN; Protocol PRN Reason: Seizure activity Last Admin: 03/30/18 12:44 Dose: 0.5 mg Ondansetron HCl (Zofran Inj) 4 mg IVP Q6 PRN PRN Reason: Nausea/Vomiting Oxycodone/Acetaminophen (Percocet 5/325 Mg Tab) 1 tab PO Q4H PRN PRN Reason: Pain, moderate (4-7) Stop: 04/07/18 17:25 Last Admin: 04/05/18 05:54 Dose: 1 tab - Labs Labs: 04/04/18 22:28 04/04/18 06:15 PT 11.8 SECONDS (9.4-12.5) 04/03/18 06:15 INR 1.03 (0.93-1.08) 04/03/18 06:15 APTT 31.6 Seconds (25.1-36.5) 04/03/18 06:15 - Constitutional Appears: No Acute Distress - Head Exam Head Exam: NORMOCEPHALIC - ENT Exam ENT Exam: Mucous Membranes Moist - Respiratory Exam Respiratory Exam: Clear to Ausculation Bilateral, NORMAL BREATHING PATTERN - Cardiovascular Exam Cardiovascular Exam: +S1, +S2 - GI/Abdominal Exam GI & Abdominal Exam: Soft, Normal Bowel Sounds - Exam Additional comments: continent - Extremities Exam Extremities Exam: Normal Capillary Refill Additional comments: pain left arm, swelling,post ORIF of left humerus - Neurological Exam Neurological Exam: Alert, Awake, Oriented x3 - Psychiatric Exam Psychiatric exam: Normal Affect, Normal Mood - Skin Skin Exam: Intact, Normal Color, Warm Assessment and Plan - Assessment and Plan (Free Text) Assessment: A 68 year old female who came in to the Er due to left shoulder pain for 3 days with history of fall 3 days ago prior to admission. History of seizure disorder,high cholesterol, current smoker,COPD. recent CT of chest showed left lower lobe lung nodule. Seizure activity with this admission. Neuro consult/ follow up. Low hemoglobin prior to surgery transfused 2 units of PRBC, 04/04/18 has open reduction and internal fixation of left proximal humerus fracture. Plan: Complaints of left arm pain, RN gave medication for pain On Dilaudid and Oxycodone PRN for pain Post ORIF of left proximal humerus fracture Transfused 2 units PRBC prior to surgery Post op hemoglobin- 9.4/hematocrit- 28 Closely monitor H/H Cardiac status stable Denies chest pain No more seizure activity Blood pressure and heart rate elevated due to pain Continue current treatment Continue current medications Physical therapy Will follow up Plan and treatment discussed with Dr. Leigh
[2018-04-05 06:49] LABS: HEMOGLOBIN 9.5 g/dL (12.0-16.0); MEAN CELL VOLUME 89.7 fl (80.0-105.0); MEAN CORPUSCULAR HEMOGLOBIN 29.7 pg (25.0-35.0); MEAN CORPUSCULAR HGB CONC 33.1 g/dl (31.0-37.0); MEAN PLATELET VOLUME 8.4 fl (7.0-11.0); RBC 3.2 10^6/uL (3.5-6.1); RED CELL DISTRIBUTION WIDTH 14.2 % (11.5-14.5); WHITE BLOOD COUNT 11.2 10^3/ul (4.5-11.0)
[2018-04-05 07:07] LABS: BLOOD UREA NITROGEN 18 mg/dL (7-21); CALCIUM 8.3 mg/dL (8.4-10.5); GFR AFRICAN-AMERICAN > 60; GFR NON-AFRICAN AMERICAN > 60
--- NOTE | 2018-04-05 08:30 | PN ---
DATE: 04/04/2018 SUBJECTIVE: The patient was seen and examined on 04/04/2018 early in the morning. Looking comfortable. No nausea, vomiting, or diarrhea. No hematuria or hematochezia. No swelling of the legs. No chest pain. No palpitation. No headache. No dizziness. Scheduled to go for surgery. PHYSICAL EXAMINATION: VITAL SIGNS: Temperature 98.2, pulse 50, respiratory rate 18, blood pressure 150/82, pulse oximetry 97%. HEENT: Head normocephalic, atraumatic. Eyes PERRLA. Extraocular muscles intact. Conjunctivae clear. Nose patent. NECK: Supple. No carotid bruit, JVD or thyromegaly. CHEST: Bilaterally symmetrical. HEART: S1 and S2 positive. LUNGS: Clear to auscultation. ABDOMEN: Soft, nontender. No organomegaly. EXTREMITIES: No edema. No cyanosis. NEUROLOGICAL: The patient is awake and alert. Follow simple commands. MEDICATIONS: Tylenol, Tegretol, vitamin D, Pepcid, Ativan, Zofran. LABORATORY DATA: White blood cells 8.5, hemoglobin 11.3, hematocrit 33.9, platelets 389. Sodium 142, potassium 4.3 , BUN 22, creatinine 0.6. Glucose 90. ASSESSMENT AND PLAN: Ms. Leann Helm is a 68-year-old lady with anemia, renal insufficiency, has left shoulder pain, status post fall three days ago before admission, history of seizures, hypercholesterolemia, current smoking, chronic obstructive pulmonary disease. CAT scan of the chest shows left lower lobe lung nodules, seizure activity in this admission, neurologist is on the case status post . transferred 2 units of packed red blood cells, now repeat hemoglobin and hematocrit is 11.3 and 33.9. Visual Stylist cleared the patient, offline cutter cleared the patient. Stable blood pressure and heart rate. Continue current treatment. Continue current medications. Gastrointestinal and deep vein thrombosis prophylaxis. Repeats labs. We will follow up. Carley Luciano MD [facility]
--- NOTE | 2018-04-05 09:24 | PQF ANEMIA ---
This form is a permanent part of the medical record Dr. Luciano, Patient admitted with fracture left humerus, hgb and hct dropping to 9.0 and 27.6, transfused with 2 UPRBC. With presence of fracture and acute drop in H/H treated with blood transfusions , please specify if you are treating an acute blood loss anemia, other acuity/ source. Clarification of your documentation is requested to better reflect the severity of illness and intensity of treatment of your patient. Indicators present [x] Anemia [x] Drop in H&H from [] to []9 [] Hypotension [] GI Bleed [x] Transfusion(s) [] Acute bleed other sites [] Tachycardia [] Surgical Procedure Blood Loss (expected not a complication) Other:[] Location in the medical record that reflects the above clinical findings: [] Treatment Provided: [] PHYSICIAN'S RESPONSE Based on your medical judgment of the clinical indicators outlined above, are you treating this patient for a known or suspected: [] Acute blood loss anemia [] Chronic blood loss anemia ] Acute on Chronic blood loss anemia [x] Anemia due to malignancy [] Anemia due to chemotherapy or radiation therapy [] Anemia of Chronic Disease, please specify: [] [] Other, please indicate type of anemia []____ [] If Unable to Determine, please check the box, sign and date. Present On Admission (POA) Indicator: [] Present at the time of admission [x] Not present at the time of admission [] Clinically Undetermined In responding to this query, please exercise your independent professional judgment. The fact that a question is asked does not imply that any particular answer is desired or expected. Thank you for your clarification on this documentation. If you have any questions please call:[ ] * Thank you, [ ]Pb Harris [facility] #[id number] customs and immigration officer [facility]
--- NOTE | 2018-04-05 10:27 | CP.PCM.PN ---
Subjective - Date & Time of Evaluation Date of Evaluation: 04/05/18 Time of Evaluation: 10:24 - Subjective Subjective: Pt awake, alert. Sitting in chair. Complaining of L shoulder pain. VSS LUE: grossly NVI distally dressing clean and intact sling in place WBC 11.2 Hg 9.5 POD#1 ortho stable for d/c after perioperative antibiotics sling on at all times f/u on Tuesday in office Objective - Vital Signs/Intake and Output Vital Signs (last 24 hours): Temp Pulse Resp BP Pulse Ox 99.4 F 95 H 18 135/65 98 04/05/18 06:00 04/05/18 06:00 04/05/18 06:00 04/05/18 06:00 04/05/18 06:00 Intake and Output: 04/05/18 04/05/18 06:59 18:59 Intake Total 120 Balance 120 - Medications Medications: Current Medications Acetaminophen (Tylenol 325mg Tab) 650 mg PO Q4H PRN PRN Reason: Fever >100.4 F Last Admin: 04/02/18 11:36 Dose: 650 mg Acetaminophen (Tylenol 325mg Tab) 650 mg PO Q4H PRN PRN Reason: Pain, moderate (4-7) Last Admin: 03/31/18 07:04 Dose: 650 mg Albuterol/Ipratropium (Duoneb 3 Mg/0.5 Mg (3 Ml) Ud) 3 ml IH [id number] [facility] Last Admin: 04/05/18 07:35 Dose: 3 ml Carbamazepine (Tegretol) 200 mg PO TID [facility] PRN Reason: Protocol Last Admin: 04/05/18 09:47 Dose: 200 mg Ergocalciferol (Drisdol 50,000 Intl Units Cap) 1 cap PO Q7D [facility] Last Admin: 03/31/18 12:02 Dose: 1 cap Famotidine (Pepcid) 20 mg PO HS [facility] Last Admin: 04/04/18 21:17 Dose: 20 mg Hydromorphone HCl (Dilaudid) 0.5 mg IVP Q4H PRN PRN Reason: Pain, severe (8-10) Last Admin: 04/05/18 03:46 Dose: 0.5 mg Lamotrigine (Lamictal) 200 mg PO BID [facility] Last Admin: 04/05/18 09:35 Dose: 200 mg Lorazepam (Ativan) 0.5 mg IVP Q6H PRN; Protocol PRN Reason: Seizure activity Last Admin: 03/30/18 12:44 Dose: 0.5 mg Ondansetron HCl (Zofran Inj) 4 mg IVP Q6 PRN PRN Reason: Nausea/Vomiting Oxycodone/Acetaminophen (Percocet 5/325 Mg Tab) 1 tab PO Q4H PRN PRN Reason: Pain, moderate (4-7) Stop: 04/07/18 17:25 Last Admin: 04/05/18 05:54 Dose: 1 tab - Labs Labs: 04/05/18 06:20 04/05/18 06:20 PT 11.8 SECONDS (9.4-12.5) 04/03/18 06:15 INR 1.03 (0.93-1.08) 04/03/18 06:15 APTT 31.6 Seconds (25.1-36.5) 04/03/18 06:15
[2018-04-05] MEDS: ceFAZolin 2 GM in Sodium Chloride 0.9% 100 ML IVPB SCH ×2 (11:32→18:41)
--- NOTE | 2018-04-05 12:50 | RAD ---
PROCEDURE: Intraoperative Fluoroscopy. HISTORY: O.R.I.F. LEFT HUMERUS FINDINGS: Fluoroscopic assistance was provided. 231.5 seconds fluoroscopy time. Radiation dose = 10.99 mGy. Please refer to the operative report for additional details
--- NOTE | 2018-04-05 14:23 | PN ---
DATE: 04/05/2018 PULMONARY PROGRESS NOTE REFERRING PHYSICIAN: Carley Luciano MD. SUBJECTIVE: She is lying in the bed, head at 45 degrees. Left upper extremity in a sling. Status post open reduction and repair of the left humeral fracture. Complaining about pain. No nausea. No vomiting, diarrhea, leg pain, leg swelling. OBJECTIVE: GENERAL: In no acute distress. VITAL SIGNS: Temp is 99, heart rate is 95, respiratory rate is 20, blood pressure 135/65, pulse ox 98% on 3 L nasal cannula. HEENT: Moist mucous membrane. No ulcer or thrush noted. NECK: Supple. No JVD. LUNGS: Have a few scattered rhonchi. HEART: S1 and S2. ABDOMEN: Soft, nontender. No organomegaly. EXTREMITIES: There is no edema of the lower extremities. Left upper extremity has mild edema with upper extremity in the sling. NEUROLOGICAL: Awake and alert. Follows simple command. LABORATORY DATA: Shows hemoglobin 9.5, hematocrit 28.7, WBC 11.2, platelet count is 386. Sodium 139, potassium 4.5, chloride 101, bicarbonate 31, BUN 18, creatinine 0.6, glucose 110, calcium is 8.3. MEDICATIONS: She is on Ativan 0.5 mg every 6 hours p.r.n., cefazolin 2 g IV every 8 hours, Dilaudid 0.5 mg every 4 hours p.r.n., vitamin D 50,000 units every 7 days, DuoNeb every 6 hours, Lamictal 200 mg twice a day, Pepcid 20 mg at bedtime, Percocet 5/325 one tab every 4 hours p.r.n., Tegretol 200 mg three times a day, Tylenol p.r.n., Zofran p.r.n. IMPRESSION AND PLAN: Status post fall with left humeral fracture, status post surgery; chronic obstructive lung disease; left lung mass; pulmonary hypertension; seizure disorder; may have sleep apnea syndrome. Pulmonary point of view, she is doing okay. Continue bronchodilator. Keep head at 45 degrees. Gastric prophylaxis. Deep venous thrombosis prophylaxis. May benefit from TICU-type services. May get Oncology involved once left upper extremity is a little stable. Will need CT-guided biopsy. Thank you and we will follow with you. Carol Zuñiga MD [facility] # [id number]
[2018-04-05 14:45] VITALS: RESP 20
--- NOTE | 2018-04-05 14:49 | RAD ---
HISTORY: postop fever/?pne COMPARISON: Comparison made with prior chest radiograph 03/28/[address] scan chest dated 03/30/2018. The the. FINDINGS: LUNGS: Significant centrilobular emphysematous changes with upper lobe predominance again noted. Previously described 1 cm spiculated nodule (possible neoplasm) superior segment left lower lobe not appreciated on this study as compared to high-resolution CT chest. . Possible mild left basilar atelectasis PLEURA: No significant pleural effusion identified, no pneumothorax apparent. CARDIOVASCULAR: Normal. OSSEOUS STRUCTURES: Status post ORIF previously noted fracture dislocation left humeral neck. . . There is inferior displacement/ subluxation left humeral head with respect to the glenoid of versus dislocation. . VISUALIZED UPPER ABDOMEN: Normal. OTHER FINDINGS: None. IMPRESSION: Significant centrilobular emphysematous changes upper lobe predominance. Spiculated 1 cm nodule (possibly neoplasm) superior segment left lower lobe is not appreciated on this study. Please refer to high-resolution CT chest and corresponding report dated 03/30/2018. . Possible mild left basilar atelectasis Status post ORIF previously noted fracture dislocation left humeral neck. . . There is inferior displacement/ subluxation left humeral head with respect to the glenoid of versus dislocation. .
[2018-04-05] MEDS ORDERED: ceFAZolin 2 GM in Sodium Chloride 0.9% 100 ML IVPB SCH (18:57)
--- NOTE | 2018-04-05 23:22 | PN ---
DATE: 04/05/2018 SUBJECTIVE: The patient is a 68-year-old female. The patient was seen and examined on the bedside, looking comfortable. Left upper extremity is in a sling, status post open reduction and repair of the left humeral fracture. Complaining about pain. No nausea, vomiting, diarrhea. No hematuria or hematochezia. No headache. No dizziness. No more seizures, but as per nursing staff, the patient has fever today. PHYSICAL EXAMINATION: VITAL SIGNS: Temperature 100.8, 100.4, 99.4; pulse 93, blood pressure 154/81, respiratory rate 20. HEENT: Head normocephalic, atraumatic. Eyes PERRLA. Extraocular muscles are intact. Conjunctivae clear. Nose patent. Mucous membrane moist. NECK: Supple. No carotid bruit. No JVD. No thyromegaly. CHEST: Bilaterally symmetrical. HEART: S1 and S2 positive. LUNGS: Clear to auscultation. ABDOMEN: Soft. Bowel sounds positive. No organomegaly. EXTREMITIES: No edema. No cyanosis. NEUROLOGICAL: The patient is awake and alert. Moving all both lower extremities. LABORATORY DATA: White blood cells 11.2, hemoglobin 9.5, hematocrit 28.7, platelets 386. Sodium 139, potassium 4.5, BUN 18, creatinine 0.6, glucose more than 50, vitamin D 21.2. MEDICATIONS: Ativan, Dilaudid, vitamin D, DuoNeb, Lamictal, Maxipime, Pepcid, oxycodone, Tegretol, Tylenol, vancomycin, Zofran. ASSESSMENT AND PLAN: Ms. Leann Helm, 68-year-old lady with leukocytosis, anemia, hypocalcemia, vitamin D deficiency, ketonuria, proteinuria. Drugs screening negative. Status post fall with left humeral fracture, status post surgery, open reduction; chronic obstructive lung disease; left lung mass; pulmonary hypertension; seizure disorder; maybe sleep apnea syndrome. Now started fever, rule out sepsis with Infectious Disease consult called. Antibiotics started. Continue bronchodilator. Gastric prophylaxis. Deep venous thrombosis prophylaxis. We will try to get Transitional Care Unit services. We will follow up. Carley Luciano MD [facility] # [id number]
[2018-04-05] MEDS: Vancomycin 1gm in NS 250ml 1 GM/250 ML BAG IVPB SCH (23:35)
[2018-04-05 23:56] LABS: URINE BILIRUBIN NEGATIVE (NEGATIVE); URINE BLOOD NEGATIVE (NEGATIVE); URINE GLUCOSE (UA) NEGATIVE (NEGATIVE); URINE LEUKOCYTE ESTERASE TRACE Leu/uL (NEGATIVE); URINE PROTEIN 100 mg/dL (<30 mg/dL); URINE UROBILINOGEN 0.2 E.U./dL (<1 E.U./dL)
[2018-04-06] LABS: URINE APPEARANCE SL CLOUDY (CLEAR); URINE COLOR YELLOW (YELLOW)
[2018-04-06 00:05] LABS: URINE RBC 0 - 2 /hpf (0-2)
[2018-04-06] MEDS: Albuterol-Ipratrop 3 mg / 0.5 (3 ml) UD IH SCH ×3 (01:27→13:04)
[2018-04-06] MEDS: Oxycodone/Acetaminophen 5/325 mg Tab PO PRN ×2 (03:21→11:36)
[2018-04-06] MEDS: Cefepime 1gm in NS 100ml 1 GM/100 ML BAG IVPB SCH ×2 (05:55→17:26)
[2018-04-06 07:44] LABS: MEAN CELL VOLUME 90.4 fl (80.0-105.0); MEAN CORPUSCULAR HEMOGLOBIN 28.8 pg (25.0-35.0); MEAN CORPUSCULAR HGB CONC 31.8 g/dl (31.0-37.0); MEAN PLATELET VOLUME 8.6 fl (7.0-11.0); RBC 3.13 10^6/uL (3.5-6.1); RED CELL DISTRIBUTION WIDTH 14.1 % (11.5-14.5); WHITE BLOOD COUNT 10.2 10^3/ul (4.5-11.0)
--- NOTE | 2018-04-06 09:19 | CP.PCM.PN ---
Subjective - Date & Time of Evaluation Date of Evaluation: 04/06/18 Time of Evaluation: 06:15 - Subjective Subjective: Sleeping but easily awaken,complaining of pain on left arm, denies chest pain, denies shortness of breath Reason for consultation and follow up: Cardiac evaluation, post fall, left humerus fracture, seizure disorder, hyperlipidemia, current heavy smoker, COPD, post ORIF of left humerus fracture Seen and examined by me and Dr. Leigh Objective - Vital Signs/Intake and Output Vital Signs (last 24 hours): Temp Pulse Resp BP Pulse Ox 98 F 88 20 112/72 94 L 04/06/18 06:00 04/06/18 06:00 04/06/18 06:00 04/06/18 06:00 04/06/18 06:00 Intake and Output: 04/06/18 04/06/18 06:59 18:59 Intake Total 550 Balance 550 - Medications Medications: Current Medications Acetaminophen (Tylenol 325mg Tab) 650 mg PO Q4H PRN PRN Reason: Fever >100.4 F Last Admin: 04/05/18 20:38 Dose: 650 mg Acetaminophen (Tylenol 325mg Tab) 650 mg PO Q4H PRN PRN Reason: Pain, moderate (4-7) Last Admin: 03/31/18 07:04 Dose: 650 mg Albuterol/Ipratropium (Duoneb 3 Mg/0.5 Mg (3 Ml) Ud) 3 ml IH [id number] [facility] Last Admin: 04/06/18 07:07 Dose: 3 ml Carbamazepine (Tegretol) 200 mg PO TID [facility] PRN Reason: Protocol Last Admin: 04/05/18 17:28 Dose: 200 mg Ergocalciferol (Drisdol 50,000 Intl Units Cap) 1 cap PO Q7D [facility] Last Admin: 03/31/18 12:02 Dose: 1 cap Famotidine (Pepcid) 20 mg PO HS [facility] Last Admin: 04/05/18 22:09 Dose: 20 mg Hydromorphone HCl (Dilaudid) 0.5 mg IVP Q4H PRN PRN Reason: Pain, severe (8-10) Last Admin: 04/05/18 03:46 Dose: 0.5 mg Cefepime HCl (Maxipime 1gm) 1 gm in 100 mls @ 100 mls/hr IVPB Q8 [facility] PRN Reason: Protocol Stop: 04/15/18 06:01 Last Admin: 04/06/18 05:55 Dose: 100 mls/hr Vancomycin HCl (Vancomycin 1gm) 1 gm in 250 mls @ 167 mls/hr IVPB Q12H [facility] PRN Reason: Protocol Stop: 04/14/18 23:01 Last Admin: 04/05/18 23:35 Dose: 167 mls/hr Lamotrigine (Lamictal) 200 mg PO BID [facility] Last Admin: 04/05/18 17:29 Dose: 200 mg Lorazepam (Ativan) 0.5 mg IVP Q6H PRN; Protocol PRN Reason: Seizure activity Last Admin: 03/30/18 12:44 Dose: 0.5 mg Ondansetron HCl (Zofran Inj) 4 mg IVP Q6 PRN PRN Reason: Nausea/Vomiting Oxycodone/Acetaminophen (Percocet 5/325 Mg Tab) 1 tab PO Q4H PRN PRN Reason: Pain, moderate (4-7) Stop: 04/07/18 17:25 Last Admin: 04/06/18 03:21 Dose: 1 tab - Labs Labs: 04/06/18 07:30 04/05/18 06:20 PT 11.8 SECONDS (9.4-12.5) 04/03/18 06:15 INR 1.03 (0.93-1.08) 04/03/18 06:15 APTT 31.6 Seconds (25.1-36.5) 04/03/18 06:15 - Constitutional Appears: No Acute Distress - Head Exam Head Exam: NORMOCEPHALIC - Eye Exam Eye Exam: Normal appearance - ENT Exam ENT Exam: Mucous Membranes Moist - Respiratory Exam Respiratory Exam: Decreased Breath Sounds, NORMAL BREATHING PATTERN - Cardiovascular Exam Cardiovascular Exam: +S1, +S2 - GI/Abdominal Exam GI & Abdominal Exam: Soft, Normal Bowel Sounds - Extremities Exam Extremities Exam: Normal Capillary Refill Additional comments: left arm sling, arm slightly swollen - Neurological Exam Neurological Exam: Alert, Awake, Oriented x3 - Psychiatric Exam Psychiatric exam: Normal Affect, Normal Mood - Skin Skin Exam: Intact, Normal Color Assessment and Plan - Assessment and Plan (Free Text) Assessment: A 68 year old female who came in to the Er due to left shoulder pain for 3 days with history of fall 3 days ago prior to admission. History of seizure disorder,high cholesterol, current smoker,COPD. recent CT of chest showed left lower lobe lung nodule. Seizure activity with this admission. Neuro consult/ follow up. Low hemoglobin prior to surgery transfused 2 units of PRBC, 04/04/18 has open reduction and internal fixation of left proximal humerus fracture. Plan: Had low grade fever yesterday, ID on consult Started on antibiotics, Cefepime and Vancomycin Chest xray showed mild left basilar atelectasis OOB to chair, increase ambulation Incentive spirometer Complaints of left arm pain, RN gave medication for pain On Dilaudid and Oxycodone PRN for pain Post ORIF of left proximal humerus fracture Cardiac status stable Denies chest pain No more seizure activity Continue current treatment Continue current medications Physical therapy Will follow up Plan and treatment discussed with Dr. Leigh
--- NOTE | 2018-04-06 12:34 | CP.PCM.PN ---
Subjective - Date & Time of Evaluation Date of Evaluation: 04/06/18 Time of Evaluation: 12:32 - Subjective Subjective: Pt awake, alert. Feeling better. Less pain. Tmax 100.8, Afebrile now LUE: shoulder immobilizer in place grossly NVI distally dressing clean WBC 10.2 POD#2 pt to be transferred to tcu today Keflex x 5 days Objective - Vital Signs/Intake and Output Vital Signs (last 24 hours): Temp Pulse Resp BP Pulse Ox 98 F 88 20 112/72 94 L 04/06/18 06:00 04/06/18 06:00 04/06/18 06:00 04/06/18 06:00 04/06/18 06:00 Intake and Output: 04/06/18 04/06/18 06:59 18:59 Intake Total 550 Balance 550 - Medications Medications: Current Medications Acetaminophen (Tylenol 325mg Tab) 650 mg PO Q4H PRN PRN Reason: Fever >100.4 F Last Admin: 04/05/18 20:38 Dose: 650 mg Acetaminophen (Tylenol 325mg Tab) 650 mg PO Q4H PRN PRN Reason: Pain, moderate (4-7) Last Admin: 03/31/18 07:04 Dose: 650 mg Albuterol/Ipratropium (Duoneb 3 Mg/0.5 Mg (3 Ml) Ud) 3 ml IH [id number] [facility] Last Admin: 04/06/18 07:07 Dose: 3 ml Carbamazepine (Tegretol) 200 mg PO TID [facility] PRN Reason: Protocol Last Admin: 04/05/18 17:28 Dose: 200 mg Ergocalciferol (Drisdol 50,000 Intl Units Cap) 1 cap PO Q7D [facility] Last Admin: 03/31/18 12:02 Dose: 1 cap Famotidine (Pepcid) 20 mg PO HS [facility] Last Admin: 04/05/18 22:09 Dose: 20 mg Hydromorphone HCl (Dilaudid) 0.5 mg IVP Q4H PRN PRN Reason: Pain, severe (8-10) Last Admin: 04/05/18 03:46 Dose: 0.5 mg Cefepime HCl (Maxipime 1gm) 1 gm in 100 mls @ 100 mls/hr IVPB Q8 [facility] PRN Reason: Protocol Stop: 04/15/18 06:01 Last Admin: 04/06/18 05:55 Dose: 100 mls/hr Vancomycin HCl (Vancomycin 1gm) 1 gm in 250 mls @ 167 mls/hr IVPB Q12H [facility] PRN Reason: Protocol Stop: 04/14/18 23:01 Last Admin: 04/05/18 23:35 Dose: 167 mls/hr Lamotrigine (Lamictal) 200 mg PO BID [facility] Last Admin: 04/06/18 11:36 Dose: 200 mg Lorazepam (Ativan) 0.5 mg IVP Q6H PRN; Protocol PRN Reason: Seizure activity Last Admin: 03/30/18 12:44 Dose: 0.5 mg Ondansetron HCl (Zofran Inj) 4 mg IVP Q6 PRN PRN Reason: Nausea/Vomiting Oxycodone/Acetaminophen (Percocet 5/325 Mg Tab) 1 tab PO Q4H PRN PRN Reason: Pain, moderate (4-7) Stop: 04/07/18 17:25 Last Admin: 04/06/18 11:36 Dose: 1 tab - Labs Labs: 04/06/18 07:30 04/05/18 06:20 PT 11.8 SECONDS (9.4-12.5) 04/03/18 06:15 INR 1.03 (0.93-1.08) 04/03/18 06:15 APTT 31.6 Seconds (25.1-36.5) 04/03/18 06:15
[2018-04-06] MEDS: Vancomycin 1gm in NS 250ml 1 GM/250 ML BAG IVPB SCH (13:14)
[2018-04-06 18:25] VITALS: BP 147/58; PULSE 94; TEMP 98.8; O2SAT 100
--- NOTE | 2018-04-06 19:56 | PN ---
DATE: 04/06/2018 PULMONARY PROGRESS NOTE REFERRING PHYSICIAN: Carley Luciano MD SUBJECTIVE: She is lying in the bed at 45 degrees. Night was unremarkable. Mild cough. No sputum production. No nausea, no vomiting, no diarrhea. No leg pain or leg swelling. Still has a left upper extremity pain, which is in a sling. OBJECTIVE: GENERAL: In no acute distress. VITAL SIGNS: Temperature is 98, heart rate is 94, respiratory rate is 20, blood pressure 147/58, pulse ox 100% on nasal cannula. HEENT: Moist mucous membranes. Crowded airway. Mallampati score is 4. NECK: Supple. No JVD. LUNGS: Have a fair airflow with rhonchi. HEART: S1 and S2. ABDOMEN: Soft, nontender. No organomegaly. EXTREMITIES: No edema. Left upper extremity is in sling. Has some mild edema. NEUROLOGICAL: Awake and alert. Follows simple command. MEDICATIONS: Reviewed and no new changes in medication reported since yesterday. LABORATORY DATA: Shows hemoglobin 9, hematocrit 28.3, WBC 10.2, platelet count is 399. Sodium 139 yesterday. Microbiology: Blood culture, urine culture have been negative. Chest x-ray done yesterday shows centrilobular emphysema. Speculated 1-cm nodule in superior segment of the left lower lobe, some atelectasis, status post ORIF of previously noted fracture at the left humeral neck. IMPRESSION AND PLAN: Status post fall with left humeral fracture, status post surgery, chronic obstructive lung disease, left lung mass, pulmonary hypertension, seizure disorder. May have a sleep apnea syndrome. Pulmonary point of view, doing okay. Continue bronchodilator. Keep head at 45 degrees. Pain management. Gastric prophylaxis, deep vein thrombosis prophylaxis. Fall precaution. Will benefit from therapy as soon as little stable from her left upper extremity surgery. Will need a CT-guided lung biopsy. Thank you and we will follow with you. Carol Zuñiga MD
--- NOTE | 2018-04-07 00:45 | CON ---
DATE: 04/06/2018 LOCATION: The patient is in bed, in no acute distress, nontoxic. CHIEF COMPLAINT: Fever x1 days. HISTORY OF PRESENT ILLNESS: This is a 68-year-old female seen in room 562, bed #1 with the history of seizures and cerebrovascular accident, chronic obstructive lung disease, high cholesterol, pneumonia, sleep apnea, depression, pulmonary hypertension, and who was admitted after a fall with a right proximal humerus distal fracture. The patient developed a new fever, has had a left ORIF of the left humerus, postop fever day #2. Infectious Diseases consultation requested. The patient appears chronically ill, debilitated with wasting syndrome. REVIEW OF SYSTEMS: A 12-point review of systems is performed. There has been fevers, mild shortness of breath. No chest pain, has mild cough. No abdominal pain, diarrhea or constipation. No bright red blood per rectum or melena. PAST MEDICAL HISTORY: Significant for cerebrovascular accident, seizures, chronic obstructive lung disease, high cholesterol, pneumonia, sleep apnea, depression, pulmonary hypertension. PAST SURGICAL HISTORY: Noncontributory. ALLERGIES: THE PATIENT HAS NO KNOWN ALLERGIES. SOCIAL HISTORY: This patient is a smoker. MEDICATIONS: At home include Tegretol and lamotrigine. PHYSICAL EXAMINATION: GENERAL: The patient is in bed and appearing chronically ill with wasting syndrome, cachectic with a BMI of only 15. VITAL SIGNS : Temperature of 98, T-max is 100.8, pulse of 93, it was up to 102, respiratory rate of 20 and blood pressure is 154/81. The patient's saturation at 94% saturation yesterday. HEENT: Examination of HEENT is unremarkable. NECK: Supple. LUNGS: Have decreased breath sounds. HEART: Normal S1, S2. ABDOMEN: Soft, nontender. LABORATORY EXAMINATION: Reveals the patient's white count of 11,200, now at this morning is down to 10,000, hemoglobin of 9 and coagulation is noted. Blood gases are reviewed. Chemistries reveals a BUN of 18, creatinine of 0.5, procalcitonin 0.09 and urinalysis from yesterday is unremarkable, 1 to 3 wbc's, trace leukocyte esterase and 0 to 2 rbc's and microbiology reveals blood culture initially was done on the which was negative and the patient had a chest x-ray yesterday, there was emphysematous changes and previously described 1-cm spiculated nodule, possible neoplasm and no new infiltrates were reported and Dr. Luciano's progress note from yesterday is also reviewed. Dr. Dov Weinberg's progress note from today is reviewed. ASSESSMENT/PLAN: This is a 68-year-old female, cachectic, chronically ill with BMI of 15 with a history of seizures, CVA, high cholesterol, chronic obstructive lung disease, pneumonia, sleep apnea, depression, pulmonary hypertension and status post fall with left humerus fracture resulting in a left open reduction and internal fixation of the left humerus, postop fever of 100.8, tachycardia. 1. Systemic inflammatory response syndrome with negative procalcitonin and negative new infiltrates on the chest x-ray, must rule out health care-associated pneumonia and we will treat the patient with vancomycin and Maxipime. Pending the repeat blood cultures, urine cultures, sputum cultures and we will make further recommendations and patient on the response. I will also order an HIV test, although she is 68 because of her weight loss. We will follow with you. Jon Gilliam MD
== END 2018-04-06 18:24 | DRG 493 ==
LOC: ED 14:15 → ERH 15:40 → 5RNO 19:07
PROVIDERS: ADMIT Internal Medicine; ATTEND Internal Medicine
PROC: 30233N1 Transfusion of Nonautologous Red Blood Cells into Peripheral Vein, Percutaneous Approach (ICD-10-PCS; 2018-04-03)
PROC: 0PSD04Z Reposition Left Humeral Head with Internal Fixation Device, Open Approach (ICD-10-PCS; principal; 2018-04-04 12:30)
DX: S42.202A Unspecified fracture of upper end of left humerus, initial encounter for closed fracture (principal); R64 Cachexia; Z68.1 Body mass index [BMI] 19.9 or less, adult; I31.3 Pericardial effusion (noninflammatory); G40.909 Epilepsy, unspecified, not intractable, without status epilepticus; J44.9 Chronic obstructive pulmonary disease, unspecified; E78.00 Pure hypercholesterolemia, unspecified; R73.9 Hyperglycemia, unspecified; E86.0 Dehydration; I27.20 Pulmonary hypertension, unspecified; R91.1 Solitary pulmonary nodule; E78.5 Hyperlipidemia, unspecified; G47.30 Sleep apnea, unspecified; F17.210 Nicotine dependence, cigarettes, uncomplicated; F39 Unspecified mood [affective] disorder; R50.82 Postprocedural fever; E55.9 Vitamin D deficiency, unspecified; D63.0 Anemia in neoplastic disease; D49.1 Neoplasm of unspecified behavior of respiratory system; W01.0XXA Fall on same level from slipping, tripping and stumbling without subsequent striking against object, initial encounter; Y92.009 Unspecified place in unspecified non-institutional (private) residence as the place of occurrence of the external cause; Z86.73 Personal history of transient ischemic attack (TIA), and cerebral infarction without residual deficits; F32.9 Major depressive disorder, single episode, unspecified

== ENCOUNTER 2018-04-06 18:05 | Inpatient (IN) | payer OTHER, BC ==
[2018-04-06] MEDS ORDERED: HYDROmorphone 0.5 mg/0.5 ml ISec IVP PRN (18:46)
[2018-04-06 19:11] VITALS: BMI 15.3
[2018-04-06] MEDS: Albuterol-Ipratrop 3 mg / 0.5 (3 ml) UD IH SCH (21:18)
[2018-04-06] MEDS: Cefepime 1gm in NS 100ml 1 GM/100 ML BAG IVPB SCH (22:08)
[2018-04-06] MEDS: Vancomycin 1gm in NS 250ml 1 GM/250 ML BAG IVPB SCH (22:09)
[2018-04-06] MEDS: Oxycodone/Acetaminophen 5/325 mg Tab PO PRN (23:27)
[2018-04-07] MEDS: Albuterol-Ipratrop 3 mg / 0.5 (3 ml) UD IH SCH ×4 (02:58→21:29)
[2018-04-07] MEDS: Cefepime 1gm in NS 100ml 1 GM/100 ML BAG IVPB SCH ×3 (05:06→21:45)
--- NOTE | 2018-04-07 09:14 | CP.PCM.PN ---
Subjective - Date & Time of Evaluation Date of Evaluation: 04/07/18 Time of Evaluation: 09:13 - Subjective Subjective: Pt awake, alert. Denies significant pain. Afebrile L shoulder dressing changed mild erythema proximal incision swelling noted, no drainage NVI distally incision cleaned and dressed POD #3 Pt currently on vanco and maxipime cont antibiotics as per ID cont LUE sling Objective - Vital Signs/Intake and Output Vital Signs (last 24 hours): Temp Pulse Resp BP Pulse Ox 97.8 F 77 18 134/68 04/06/18 19:04 04/06/18 19:04 04/06/18 19:04 04/06/18 19:04 - Medications Medications: Current Medications Acetaminophen (Tylenol 325mg Tab) 650 mg PO Q4H PRN PRN Reason: Fever >100.4 F Acetaminophen (Tylenol 325mg Tab) 650 mg PO Q4H PRN PRN Reason: moderate paibn ( 4-7) Albuterol/Ipratropium (Duoneb 3 Mg/0.5 Mg (3 Ml) Ud) 3 ml IH [id number] SONAL Last Admin: 04/07/18 08:16 Dose: 3 ml Carbamazepine (Tegretol) 200 mg PO TID SONAL PRN Reason: Protocol Last Admin: 04/07/18 07:56 Dose: 200 mg Ergocalciferol (Drisdol 50,000 Intl Units Cap) 1 cap PO Q7D SON[facility] Famotidine (Pepcid) 20 mg PO HS SONAL Last Admin: 04/06/18 21:30 Dose: 20 mg Hydromorphone HCl (Dilaudid) 0.5 mg IVP Q4H PRN PRN Reason: severe pain 8-10 Cefepime HCl (Maxipime 1gm) 1 gm in 100 mls @ 100 mls/hr IVPB Q8 [facility]ONAL PRN Reason: Protocol Last Admin: 04/07/18 05:06 Dose: 100 mls/hr Vancomycin HCl (Vancomycin 1gm) 1 gm in 250 mls @ 167 mls/hr IVPB Q12H [facility]ON[facility] PRN Reason: Protocol Last Admin: 04/06/18 22:09 Dose: 167 mls/hr Lamotrigine (Lamictal) 200 mg PO BID SONAL Lorazepam (Ativan) 0.5 mg IVP Q6H PRN; Protocol PRN Reason: Anxiety Ondansetron HCl (Zofran Inj) 4 mg IVP Q6H PRN PRN Reason: Nausea/Vomiting Oxycodone/Acetaminophen (Percocet 5/325 Mg Tab) 1 tab PO Q4H PRN PRN Reason: breakthrough pain Stop: 04/09/18 18:53 Last Admin: 04/06/18 23:27 Dose: 1 tab
[2018-04-07] MEDS: Oxycodone/Acetaminophen 5/325 mg Tab PO PRN ×2 (09:42→21:47)
[2018-04-07] MEDS: Vancomycin 1gm in NS 250ml 1 GM/250 ML BAG IVPB SCH ×2 (09:43→21:48)
--- NOTE | 2018-04-07 13:32 | CP.PCM.CON ---
History of Present Illness - History of Present Illness History of Present Illness: 68 year old female with PMH of COPD, significant smoking history came in initially to [facility] because of a fall, injuring her left shoulder and she was found to have left humeral fracture. She underwent ORIF for this, and two days later developed low grade fevers but patient has been clinically stable and started on broad spectrum antibiotics. She is now transferred to [facility] for continued medical therapy and physical rehab. Infectious Diseases consult is requested to see if the patient still needs antibiotics. Currently the patient is resting comfortably on a chair, no fevers, no chills, no nausea or vomiting, improving pain on the left shoulder, no abdominal pain, no SOB, no cough or rhinorrhea, no diarrhea, no dysuria. Review of Systems - Review of Systems All systems: reviewed and no additional remarkable complaints except (as per HPI ) Past Patient History - Tetanus Immunizations Tetanus Immunization: Unknown - Past Medical History & Family History Past Medical History?: Yes - Past Social History Smoking Status: Current Some Days Smoker - CARDIAC Hx Pacemaker: No - PULMONARY Hx Chronic Obstructive Pulmonary Disease (COPD): Yes - NEUROLOGICAL Hx Neurological Disorder: Yes Hx Seizures: Yes - HEENT Hx HEENT Problems: No - RENAL Hx Chronic Kidney Disease: No - ENDOCRINE/METABOLIC Hx Endocrine Disorders: No - HEMATOLOGICAL/ONCOLOGICAL Hx Blood Disorders: No - INTEGUMENTARY Hx Dermatological Problems: No - MUSCULOSKELETAL/RHEUMATOLOGICAL Hx Falls: Yes - GASTROINTESTINAL Hx Gastrointestinal Disorders: Yes - GENITOURINARY/GYNECOLOGICAL Hx Genitourinary Disorders: No - PSYCHIATRIC Hx Emotional Abuse: No Hx Physical Abuse: No - SURGICAL HISTORY Hx Surgeries: Yes - ANESTHESIA Hx Anesthesia Reactions: No Hx Malignant Hyperthermia: No Meds Allergies/Adverse Reactions: Allergies Allergy/AdvReac Type Severity Reaction Status Date / Time No Known Allergies Allergy Verified 04/06/18 18:43 - Medications Medications: Current Medications Acetaminophen (Tylenol 325mg Tab) 650 mg PO Q4H PRN PRN Reason: Fever >100.4 F Acetaminophen (Tylenol 325mg Tab) 650 mg PO Q4H PRN PRN Reason: moderate paibn ( 4-7) Albuterol/Ipratropium (Duoneb 3 Mg/0.5 Mg (3 Ml) Ud) 3 ml IH [id number] SONAL Last Admin: 04/07/18 08:16 Dose: 3 ml Carbamazepine (Tegretol) 200 mg PO 0800,1200,1800 [facility] PRN Reason: Protocol Ergocalciferol (Drisdol 50,000 Intl Units Cap) 1 cap PO Q7D [facility] Famotidine (Pepcid) 20 mg PO HS [facility] Last Admin: 04/06/18 21:30 Dose: 20 mg Hydromorphone HCl (Dilaudid) 0.5 mg IVP Q4H PRN PRN Reason: severe pain 8-10 Cefepime HCl (Maxipime 1gm) 1 gm in 100 mls @ 100 mls/hr IVPB Q8 SONAL PRN Reason: Protocol Last Admin: 04/07/18 13:03 Dose: 100 mls/hr Vancomycin HCl (Vancomycin 1gm) 1 gm in 250 mls @ 167 mls/hr IVPB Q12H [facility] PRN Reason: Protocol Last Admin: 04/07/18 09:43 Dose: 167 mls/hr Lamotrigine (Lamictal) 200 mg PO BID [facility] Last Admin: 04/07/18 09:43 Dose: 200 mg Lorazepam (Ativan) 0.5 mg IVP Q6H PRN; Protocol PRN Reason: Anxiety Ondansetron HCl (Zofran Inj) 4 mg IVP Q6H PRN PRN Reason: Nausea/Vomiting Oxycodone/Acetaminophen (Percocet 5/325 Mg Tab) 1 tab PO Q4H PRN PRN Reason: breakthrough pain Stop: 04/09/18 18:53 Last Admin: 04/07/18 09:42 Dose: 1 tab Physical Exam - Constitutional Appears: Cachectic, Chronically Ill - Head Exam Head Exam: NORMAL INSPECTION - ENT Exam ENT Exam: Mucous Membranes Moist - Neck Exam Neck exam: Negative for: Lymphadenopathy, Meningismus - Respiratory Exam Respiratory Exam: Decreased Breath Sounds. absent: Rales - Cardiovascular Exam Cardiovascular Exam: +S1, +S2 - GI/Abdominal Exam GI & Abdominal Exam: Soft. absent: Tenderness - Extremities Exam Additional comments: left shoulder with dressings in place Results - Vital Signs Recent Vital Signs: Last Vital Signs Temp 97.8 F 04/06/18 19:04 Pulse 77 04/06/18 19:04 Resp 18 04/06/18 19:04 BP 134/68 04/06/18 19:04 Pulse Ox Assessment & Plan - Assessment and Plan (Free Text) Plan: Assessment systemic inflammatory response syndrome with post-op fever day 2, R/O surgical site infection COPD significant smoking history Plan Continue the patient on Vancomycin and Cefepime day 2 pending final blood and urine cx results; CXR did not reveal infiltrates; surgical site wound inspected by Dr. Weinberg and we have discussed the findings with him - still with some surrounding erythema - will monitor while on antibiotics
[2018-04-07] MEDS ORDERED: Ergocalciferol 50,000 Intl Units Cap PO SCH (19:00)
--- NOTE | 2018-04-08 01:35 | CON ---
DATE: 04/07/2018 PULMONARY CONSULT REFERRING PHYSICIAN: Carley Luciano MD. REASON FOR CONSULT: Chronic obstructive lung disease, lung mass, status post fall with left humeral fracture. HISTORY OF PRESENT ILLNESS: This is a 68-year-old female, known to me from previous admission and from acute site of the hospital where she comes in after mechanical fall, found to have a left humeral fracture, also incidentally found to have a left lower lobe spiculated mass. Other issues are chronic lung disease, pulmonary hypertension, seizure disorder. She did have few episode of a seizure in the acute site of the hospital. After optimizing her antiseizure medication, no more seizure. Underwent open reduction and fixation of the left humeral fracture, done well. Presently admitted to TICU for further care. She is sitting on side of the bed. Has on and off pain in the left upper extremity which is in sling. No headache. No rhinitis. No nausea. No vomiting, diarrhea, leg pain, leg swelling. PAST MEDICAL HISTORY: Chronic obstructive lung disease, pulmonary hypertension, seizure disorder. ALLERGIES: NONE KNOWN. SOCIAL HISTORY: She is an active smoker. Denies any alcohol use. FAMILY HISTORY: No significant cardiopulmonary disease reported. MEDICATIONS: She is on Ativan 0.5 mg every 6 hours p.r.n., Dilaudid 0.5 mg every 4 hours p.r.n., vitamin D 50,000 units every 7 days, DuoNeb every 6 hours, Lamictal is at 200 mg twice a day, cefepime 1 g IV every 8 hours, Pepcid 20 mg daily, Percocet 5/325 one tab every 4 hours p.r.n., Tegretol 200 mg three times a day, Tylenol p.r.n., vancomycin 1 g IV every 12 hours, Zofran p.r.n. basis. LABORATORY DATA: Reviewed, noted hemoglobin from yesterday 9, hematocrit 28.3, WBC 10.2, platelet is 399, procalcitonin from yesterday 0.09. Microbiology: Blood culture, urine culture have been negative. IMPRESSION AND PLAN: Status post fall, left humeral fracture, status post open reduction and fixation, chronic obstructive lung disease, left lung mass, pulmonary hypertension, seizure disorder. Presently in TICU for continued care. We will continue pain management. P.o. and inhaled bronchodilator, on antibiotics. We will get Dr. Homero Barton to evaluate the patient with possible biopsy. Continue Nicoderm patch. Thank you and we will follow with you. Carol Zuñiga MD
[2018-04-08] MEDS: Albuterol-Ipratrop 3 mg / 0.5 (3 ml) UD IH SCH ×4 (02:58→20:02)
[2018-04-08] MEDS: Vancomycin 1gm in NS 250ml 1 GM/250 ML BAG IVPB SCH ×2 (09:08→22:26)
--- NOTE | 2018-04-08 10:06 | PN ---
DATE: 04/08/2018 LOCATION: The patient is seen in room 327. SUBJECTIVE: No fevers or chills. She is chronically ill and weak. PHYSICAL EXAMINATION: VITAL SIGNS: Temperature of 98, blood pressure is 117/90, respiratory rate 20, and heart rate of 95. HEENT: Within normal limits. There is temporal wasting. NECK: Supple. LUNGS: Have decreased breath sounds. HEART: Normal S1, S2. ABDOMEN: Soft, nontender. LABORATORY DATA: Noted and reviewed. ASSESSMENT AND PLAN: This is a 68-year-old female seen earlier today in 327 with end-stage chronic obstructive pulmonary disease, significant smoking history, status post fall, had a left shoulder injury and left humeral fracture, underwent open reduction and internal fixation and developed post procedure fever with systemic inflammatory response syndrome, questionable surgical site infection with chronic obstructive lung disease, significant smoking. Vancomycin and cefepime day #3. We will continue vancomycin and cefepime. We will follow closely with you. Case discussed with Dr. Marcos and nursing staff. Jon Gilliam MD
[2018-04-08] MEDS: Cefepime 1gm in NS 100ml 1 GM/100 ML BAG IVPB SCH ×2 (14:22→22:23)
[2018-04-08] MEDS: Oxycodone/Acetaminophen 5/325 mg Tab PO PRN ×2 (15:24→22:24)
--- NOTE | 2018-04-08 18:59 | HP ---
DATE OF EXAM: 04/08/2018 CHIEF COMPLAINT: Fall, fracture of left humerus, and deconditioning. HISTORY OF PRESENT ILLNESS: Mr. Leann Helm is a 68-year-old, my private patient who has history of seizures, was admitted in [facility] acute site for fracture in the left humerus. The patient was seen by the Orthopedics, cleared by the Cardiology and Pulmonary. The patient went for surgery. The patient was doing better. She had overnight fever. ID consult was called. Antibiotics started and the patient was transferred to TCU for continuity of care, for physical therapy. The patient had open reduction and fixation of the left humeral fracture. The patient was seen in the activity room on 04/07/2018. Her friend was on the bedside also. No nausea, vomiting, or diarrhea. No hematuria or hematochezia. Feeling better. PAST MEDICAL HISTORY: Chronic obstructive lung disease, pulmonary hypertension, and seizure disorder. ALLERGIES: NO KNOWN ALLERGIES. SOCIAL HISTORY: History of active smoker. No alcohol. No substance abuse. FAMILY HISTORY: Family history of father and mother, noncontributory. MEDICATIONS: Ativan, Dilaudid, vitamin D, DuoNeb, Lamictal, cefepime, Pepcid, Percocet, Tegretol, Tylenol, vancomycin, and Zofran. LABORATORY DATA: We do not have recent labs today, but reviewed old labs. Hemoglobin 9, hematocrit 28.3, white blood cells 10.2, platelets 399. Blood and urine cultures are negative. ASSESSMENT AND PLAN: Mr. Leann Helm with a history of chronic obstructive pulmonary disease, asthma, heavy smoking, status post fall and left humeral fracture, status post open reduction and fixation, left lung mass, pulmonary hypertension, and seizure disorder. The patient is in TICU for continuity of care. We will continue pain management, p.o. and inhaled bronchodilators, on antibiotics. Reviewed Dr. Zuñiga's notes, appreciated his concern that we are calling Dr. Homero Barton for evaluation of the patient's possible biopsy. Gastrointestinal and deep venous thrombosis prophylaxis. Repeat labs. We will follow up. Carley Luciano MD [facility] # [id number]
--- NOTE | 2018-04-09 02:11 | PN ---
DATE: 04/08/2018 PULMONARY PROGRESS NOTE REFERRING PHYSICIAN: Dr. Luciano. SUBJECTIVE: She is out of bed to chair. Night was unremarkable. Feels okay. Still has some left upper extremity discomfort, mild hand swelling. No cough. No sputum production. No nausea, no vomiting, no diarrhea. No leg pain or leg swelling. OBJECTIVE: GENERAL: In no acute distress. VITAL SIGNS: Temperature is 98, heart rate 77, respiratory rate is 20, blood pressure 117/96, pulse ox 96% on room air. HEENT: Moist mucous membrane. No ulcer or thrush noted. NECK: Supple. No JVD. LUNGS: Has fair airflow with rhonchi. HEART: S1 and S2. ABDOMEN: Soft, nontender. No organomegaly. EXTREMITIES: No edema. Left upper extremity has a dressing and in sling. Left hand has mild swelling. NEUROLOGIC: Awake and alert, follows simple command. MEDICATIONS: She is on Dilaudid 0.5 mg every 4 hours p.r.n., vitamin D 50,000 units every 7 days, DuoNeb every 6 hours, Lamictal 200 mg twice a day, cefepime 1 g IV every 8 hours, Pepcid 20 mg at bedtime, Percocet 5/325 one tablet every 4 hours p.r.n., Tegretol 200 mg three times a day, Tylenol p.r.n., vancomycin 1 g IV every 12 hours, Zofran p.r.n. basis. LABORATORY DATA: Reviewed. No new lab is available since yesterday. IMPRESSION AND PLAN: Status post fall with left humeral fracture, requiring open reduction and fixation; chronic obstructive lung disease; left lung mass; pulmonary hypertension; seizure disorder. Pulmonary point of view, doing okay. Continue bronchodilator. Keep head at 45 degrees. Fall precaution. Gastric prophylaxis, deep venous thrombosis prophylaxis. We will get Dr. Homero Barton for possible biopsy next week. Thank you and we will follow with you. Carol Zuñiga MD
[2018-04-09] MEDS: Cefepime 1gm in NS 100ml 1 GM/100 ML BAG IVPB SCH ×3 (05:36→21:36)
--- NOTE | 2018-04-09 06:00 | PN ---
DATE: 04/08/2018 SUBJECTIVE: The patient was seen and examined at the bedside on 04/08/2018. She was sitting in the activity room. Her friend was on the bedside. No nausea, vomiting or diarrhea. No fever. No chills. No headache. No dizziness. According to her, last night, nurse changed her brace and dressing. No hematochezia. PHYSICAL EXAMINATION: VITAL SIGNS: Temperature 98, blood pressure 120/80 , respiratory rate 20, heart rate 95. HEENT: Head is normocephalic and atraumatic. Eyes, PERRLA. Extraocular movements are intact. Conjunctivae are clear. Nose is patent. NECK: Supple. No carotid bruits. No JVD or thyromegaly. CHEST: Bilaterally symmetrical. HEART: S1 and S2 positive. LUNGS: Clear to auscultation. ABDOMEN: Soft. Bowel sounds present. No organomegaly. EXTREMITIES: No edema. No cyanosis. MEDICATIONS: Dilaudid, vitamin D, DuoNeb, Lamictal, Maxipime, Pepcid, Percocet, Tegretol, Tylenol, vancomycin. LABORATORY DATA: We do not have recent labs today, but reviewed old labs. ASSESSMENT AND PLAN: Ms. Leann Helm is a 68-year-old lady with multiple medical problems with chronic obstructive pulmonary disease, history of actively smoking, status post fall, has left shoulder injury and left humerus fracture, underwent open reduction and internal fixation, and developed post procedure fever with systemic inflammatory response syndrome, questionable surgical site infection with chronic obstructive lung disease, significant smoking. Vancomycin and cefepime, day 3. We will continue vancomycin and cefepime. We will also follow up closely with the patient's renal function test. Discussion done with patient's nursing staff. Repeat labs. We will follow up. Carley Luciano MD [facility]TD[facility]
[2018-04-09] MEDS: Albuterol-Ipratrop 3 mg / 0.5 (3 ml) UD IH SCH ×4 (07:31→20:02)
[2018-04-09 09:57] LABS: BASO # 0.04 K/mm3 (0.0-2.0); BASO % 0.4 % (0.0-3.0); EOS # 0.2 (0.0-0.7); EOS % 1.6 % (1.5-5.0); GRAN # 7.84 (1.4-6.5); GRAN % 76.1 % (50.0-68.0); LYMPH # 1.6 (1.2-3.4); LYMPH % 15.2 % (22.0-35.0); MEAN CELL VOLUME 91.6 fl (80.0-105.0); MEAN CORPUSCULAR HGB CONC 31.7 g/dl (31.0-37.0); MEAN PLATELET VOLUME 8.4 fl (7.0-11.0); MONO # 0.7 (0.1-0.6); MONO % 6.7 % (1.0-6.0); RBC 3.1 10^6/uL (3.5-6.1); RED CELL DISTRIBUTION WIDTH 13.7 % (11.5-14.5); WHITE BLOOD COUNT 10.3 10^3/ul (4.5-11.0)
[2018-04-09] MEDS: Vancomycin 1gm in NS 250ml 1 GM/250 ML BAG IVPB SCH ×3 (10:16→21:36)
[2018-04-09 10:55] LABS: ALB/GLOB RATIO 1.1 (1.1-1.8); ALBUMIN 3.9 g/dL (3.0-4.8); ALT/SGPT 29 U/L (7-56); AST/SGOT 42 U/L (14-36); BLOOD UREA NITROGEN 20 mg/dL (7-21); CALCIUM 9.3 mg/dL (8.4-10.5); GFR AFRICAN-AMERICAN > 60; GFR NON-AFRICAN AMERICAN > 60
--- NOTE | 2018-04-09 17:08 | PN ---
DATE: 04/09/2018 PULMONARY PROGRESS NOTE REFERRING PHYSICIAN: Carley Luciano MD. SUBJECTIVE: She is out of bed to chair. Night was unremarkable. Still has an issue with her sling, which is not fitting right to her. No cough. No sputum production. No nausea, vomiting, or diarrhea. No leg pain or leg swelling. PHYSICAL EXAMINATION: GENERAL: In no acute distress. VITAL SIGNS: Temperature is 98, heart rate is 83, respiratory rate is 20, blood pressure 163/96, pulse ox 96% on nasal cannula. HEENT: Moist mucous membranes. Small oral cavity. Crowded airway. NECK: Supple. No JVD. LUNGS: Have a prolonged expiratory phase. HEART: S1 and S2. ABDOMEN: Soft, nontender. No organomegaly. EXTREMITIES: There is no edema of the lower extremity. Left upper extremity is in sling. Has some edema of the left upper extremity and hand. NEUROLOGIC: Awake, alert, and follows simple command. MEDICATIONS: She is on Dilaudid 0.5 mg every 4 hours p.r.n., vitamin D 50,000 units every 7 days, DuoNeb every 6 hours, lamotrigine 200 mg twice a day, cefepime 1 g every 8 hours, Pepcid 20 mg at bedtime, Percocet 5 per 325 one tablet every 4 hours p.r.n., Tegretol 200 mg three times a day, Tylenol p.r.n., vancomycin 1 g IV every 12 hours, and Zofran p.r.n. basis. LABORATORY DATA: Shows hemoglobin 9, hematocrit 28.4, WBC 10.3, platelet is 558. Sodium 140, potassium 4.4, chloride 100, bicarbonate 30, BUN 20, creatinine 0.6, glucose 105, calcium 9.3. Total bilirubin 0.6, AST 42, ALT 29, alkaline phosphatase is 118. Albumin is 3.9. IMPRESSION AND PLAN: Status post fall with left humeral fracture requiring open reduction and fixation, chronic obstructive lung disease, left lung mass, pulmonary hypertension, seizure disorder. Pulmonary point of view, doing okay. Spoke to the staff in TCU to get a sling which can fit the patient appropriately. Continue therapy. Awaiting for interventional radiology for possible lung CT-guided biopsy. Thank you and we will follow with you. Carol Zuñiga MD
[2018-04-10] MEDS: Albuterol-Ipratrop 3 mg / 0.5 (3 ml) UD IH SCH ×4 (01:49→21:00)
[2018-04-10] MEDS: Cefepime 1gm in NS 100ml 1 GM/100 ML BAG IVPB SCH ×3 (05:52→21:49)
--- NOTE | 2018-04-10 09:03 | PN ---
DATE: 04/09/2018 SUBJECTIVE: The patient is in bed, in no acute distress, nontoxic. PHYSICAL EXAMINATION: VITAL SIGNS: Temperature is 98, blood pressure is 160/90, respiratory rate of 20. HEENT: Unremarkable. NECK: Supple. LUNGS: Decreased breath sounds. HEART: Normal S1, S2. ABDOMEN: Soft, nontender. No organomegaly. No rebound. No guarding. No masses. LABORATORY DATA: Reveals the patient's labs are reviewed. The patient's last white count is 10,000. Review of orders reveals the patient to be on IV vancomycin and cefepime. ASSESSMENT AND PLAN: This 68-year-old female was seen earlier this morning in room 327. The patient has end-stage chronic obstructive lung disease and significant smoking history, status post fall with a left shoulder injury and left humeral fracture, underwent open reduction and internal fixation and developed post procedure fever with systemic inflammatory response syndrome, questionable surgical site infection. The patient with chronic obstructive lung disease, day #4 of vancomycin and cefepime. We will follow with Dr. Marcos regarding her possible surgical site infection and we will order laboratories and we will follow and review of the medications reveals the patient's vancomycin is given on 10 a.m. and 10 p.m. We will order vancomycin trough level for tomorrow at 9'o clock, an hour before 10 a.m. dose and we will also order chemistries. Her creatinine was on the 16th rather 4 days ago. Jon Gilliam MD
[2018-04-10] MEDS: Vancomycin 1gm in NS 250ml 1 GM/250 ML BAG IVPB SCH ×2 (10:30→21:48)
--- NOTE | 2018-04-10 15:40 | PN ---
DATE: 04/09/2018 SUBJECTIVE: The patient is a 68-year-old female. The patient was seen and examined at the bedside on 04/09/2018. Friend was sitting on the bedside also. Looking comfortable. Still having pain in the left upper extremity. No nausea, vomiting, diarrhea. Left hand was swollen. Discussion done with the patient and the patient's family and the patient's nurse. Nurse has changed the patient's dressing and support. PHYSICAL EXAMINATION: VITAL SIGNS: Temperature 98, heart rate 83, respiratory rate 20, blood pressure 153/96, pulse oximetry 90 percent on nasal cannula. HEENT: Head: Normocephalic, atraumatic. Eyes: PERRLA. Extraocular muscles intact. Conjunctivae clear. Nose patent. Mucous membrane moist. NECK: Supple. No carotid bruit. No JVD or thyromegaly. CHEST: Bilaterally symmetrical. HEART: S1 and S2 positive. LUNGS: Clear to auscultation. ABDOMEN: Soft. Bowel sounds present. No organomegaly. EXTREMITIES: Lower extremity, no edema. No cyanosis. Left upper extremity is in the sling and hand is swollen. NEUROLOGICAL: Awake and alert. Moving both lower extremities. LABORATORY DATA: Hemoglobin 9, hematocrit 28.4, white blood cells 7.3, platelets 558. Sodium 140, potassium 4.4, BUN 20, creatinine 0.6, glucose 105, AST 42, ALT 29. MEDICATIONS: Dilaudid, vitamin D, DuoNeb, cefepime, Pepcid, Percocet, Tegretol, Tylenol, vancomycin. ASSESSMENT AND PLAN: Ms. Leann Helm is a 68-year-old lady, status post fall with left humeral fracture requiring surgery by Dr. Weinberg. It is open reduction and fixation. Chronic obstructive lung disease; history of uncontrolled seizures, now is stable; left lung mass; pulmonary hypertension. The patient is doing better. Spoke to the patient, the patient's family and the patient's nurse. Changed the patient's sling, slightly position of the hand to raise. Awaiting for Trauma, Dr. Homero Barton about the biopsy. Maybe the patient need CT-guided lung biopsy. Physical therapy, out of bed. We will follow up. Carley Luciano MD [facility] # [phone] [facility]
--- NOTE | 2018-04-10 17:17 | CP.PCM.PN ---
Subjective - Date & Time of Evaluation Date of Evaluation: 04/10/18 Time of Evaluation: 10:05 - Subjective Subjective: Patient is feeling better, no fevers, less pain in the left shoulder, no nausea , no diarrhea. Objective - Vital Signs/Intake and Output Vital Signs (last 24 hours): Temp Pulse Resp BP Pulse Ox 98.1 F 79 17 134/75 91 L 04/10/18 06:00 04/10/18 06:00 04/10/18 06:00 04/10/18 06:00 04/09/18 16:00 - Medications Medications: Current Medications Acetaminophen (Tylenol 325mg Tab) 650 mg PO Q4H PRN PRN Reason: Fever >100.4 F Acetaminophen (Tylenol 325mg Tab) 650 mg PO Q4H PRN PRN Reason: moderate paibn ( 4-7) Albuterol/Ipratropium (Duoneb 3 Mg/0.5 Mg (3 Ml) Ud) 3 ml IH [id number] [facility] Last Admin: 04/10/18 01:49 Dose: Not Given Carbamazepine (Tegretol) 200 mg PO 0800,1200,1800 [facility] PRN Reason: Protocol Last Admin: 04/09/18 17:49 Dose: 200 mg Ergocalciferol (Drisdol 50,000 Intl Units Cap) 1 cap PO Q7D [facility] Last Admin: 04/07/18 20:10 Dose: 1 cap Famotidine (Pepcid) 20 mg PO HS [facility] Last Admin: 04/09/18 21:51 Dose: 20 mg Hydromorphone HCl (Dilaudid) 0.5 mg IVP Q4H PRN PRN Reason: severe pain 8-10 Last Admin: 04/09/18 21:35 Dose: 0.5 mg Vancomycin HCl (Vancomycin 1gm) 1 gm in 250 mls @ 167 mls/hr IVPB Q12H [facility] PRN Reason: Protocol Last Admin: 04/09/18 21:36 Dose: 167 mls/hr Cefepime HCl (Maxipime 1gm) 1 gm in 100 mls @ 100 mls/hr IVPB Q8 [facility] PRN Reason: Protocol Stop: 04/17/18 14:01 Last Admin: 04/10/18 05:52 Dose: 100 mls/hr Lamotrigine (Lamictal) 200 mg PO BID [facility] Last Admin: 04/09/18 17:48 Dose: 200 mg Ondansetron HCl (Zofran Inj) 4 mg IVP Q6H PRN PRN Reason: Nausea/Vomiting - Labs Labs: 04/09/18 09:30 04/09/18 10:30 - Constitutional Appears: Non-toxic, Cachectic, Chronically Ill - Head Exam Head Exam: NORMAL INSPECTION - ENT Exam ENT Exam: Mucous Membranes Moist - Neck Exam Neck Exam: absent: Meningismus - Respiratory Exam Respiratory Exam: Decreased Breath Sounds. absent: Rales - Cardiovascular Exam Cardiovascular Exam: +S1, +S2 - Extremities Exam Additional comments: left shoulder with dressings in place Assessment and Plan - Assessment and Plan (Free Text) Plan: Assessment systemic inflammatory response syndrome with post-op fever day 2, R/O surgical site infection COPD significant smoking history Plan Continue the patient on Vancomycin and Cefepime day 5 and will continue to monitor clinically - aim for 7-10 days of antibiotics
[2018-04-10 17:47] LABS: INR 1.02 (0.93-1.08); PROTHROMBIN TIME 11.6 SECONDS (9.4-12.5)
[2018-04-10 17:48] LABS: PARTIAL THROMBOPLASTIN TIME 33.8 Seconds (25.1-36.5)
--- NOTE | 2018-04-10 18:06 | CP.PCM.PN ---
Subjective - Date & Time of Evaluation Date of Evaluation: 04/10/18 Time of Evaluation: 18:02 - Subjective Subjective: Patient POD #6 s/p ORIF left proximal humerus fracture. Patient states she is doing ok. Denies any significant pain. Patient is on IV vanco and cefepime. aferbile WBC 10.3 L shoulder dressing removed. Incision still mildly erythematous. No drainage. New dressings applied NVI distally POD #6 Cont abx per ID Cont LUE sling Objective - Vital Signs/Intake and Output Vital Signs (last 24 hours): Temp Pulse Resp BP Pulse Ox 98.1 F 79 17 134/75 91 L 04/10/18 06:00 18 06:00 04/10/18 06:00 04/10/18 06:00 04/09/18 16:00 Intake and Output: 04/10/18 04/10/18 06:59 18:59 Intake Total 420 Balance 420 - Medications Medications: Current Medications Acetaminophen (Tylenol 325mg Tab) 650 mg PO Q4H PRN PRN Reason: Fever >100.4 F Acetaminophen (Tylenol 325mg Tab) 650 mg PO Q4H PRN PRN Reason: moderate paibn ( 4-7) Albuterol/Ipratropium (Duoneb 3 Mg/0.5 Mg (3 Ml) Ud) 3 ml IH [id number] [facility] Last Admin: 04/10/18 13:10 Dose: 3 ml Carbamazepine (Tegretol) 200 mg PO 0800,1200,1800 [facility]ON[facility] PRN Reason: Protocol Last Admin: 04/10/18 17:16 Dose: 200 mg Ergocalciferol (Drisdol 50,000 Intl Units Cap) 1 cap PO Q7D [facility] Last Admin: 04/07/18 20:10 Dose: 1 cap Famotidine (Pepcid) 20 mg PO HS [facility] Last Admin: 04/09/18 21:51 Dose: 20 mg Hydromorphone HCl (Dilaudid) 0.5 mg IVP Q4H PRN PRN Reason: severe pain 8-10 Last Admin: 04/09/18 21:35 Dose: 0.5 mg Vancomycin HCl (Vancomycin 1gm) 1 gm in 250 mls @ 167 mls/hr IVPB Q12H [facility] PRN Reason: Protocol Last Admin: 04/10/18 10:30 Dose: 167 mls/hr Cefepime HCl (Maxipime 1gm) 1 gm in 100 mls @ 100 mls/hr IVPB Q8 [facility] PRN Reason: Protocol Stop: 04/17/18 14:01 Last Admin: 04/10/18 13:29 Dose: 100 mls/hr Lamotrigine (Lamictal) 200 mg PO BID [facility] Last Admin: 04/10/18 17:16 Dose: 200 mg Ondansetron HCl (Zofran Inj) 4 mg IVP Q6H PRN PRN Reason: Nausea/Vomiting - Labs Labs: 04/09/18 09:30 04/09/18 10:30 PT 11.6 SECONDS (9.4-12.5) 04/10/18 17:33 INR 1.02 (0.93-1.08) 04/10/18 17:33 APTT 33.8 Seconds (25.1-36.5) 04/10/18 17:33
--- NOTE | 2018-04-10 20:07 | PN ---
DATE: 04/10/2018 PULMONARY PROGRESS NOTE REFERRING PHYSICIAN: Carley Luciano MD. SUBJECTIVE: She is sitting on a chair. Son and family at the bedside. Night was unremarkable. Still has discomfort of the left upper extremity. This is in sling. No nausea. No vomiting, diarrhea, leg pain, leg swelling. OBJECTIVE: GENERAL: In no acute distress. VITAL SIGNS: Temp is 98, heart rate is 79, respiratory rate is 20, blood pressure 134/75, pulse ox 91% on 2 L nasal cannula. HEENT: Moist mucous membranes. Small oral cavity. NECK: Supple. No JVD. EXTREMITIES: Left upper extremity is in sling. No edema. LUNGS: Have a fair airflow with rhonchi. HEART: S1 and S2. ABDOMEN: Soft and nontender. No organomegaly. NEUROLOGICAL: Awake and alert. Follows simple command. LABORATORY DATA: Reviewed and noted. No lab is available other than vancomycin trough level is 16. MEDICATIONS: The patient is on Dilaudid 0.5 mg every 4 hours p.r.n., vitamin D is one capsule every 7 days, DuoNeb every 6 hours, Lamictal is 200 mg twice a day, cefepime 1 g IV every 8 hours, Pepcid 20 mg daily, Tegretol 200 mg three times a day, Tylenol p.r.n. basis, vancomycin 1 g IV every 12 hours, Zofran p.r.n. basis. IMPRESSION AND PLAN: Status post fall with left humeral fracture requiring open reduction and fixation, also has chronic obstructive lung disease, left lung found to have incidental mass, pulmonary hypertension, seizure disorder. I spoke to the patient and family at the bedside. All the questions answered. Awaiting for Dr. Homero Barton's evaluation. Need a CT-guided nasal biopsy and then need staging. We will do that after the biopsy. For now, continue bronchodilator. Keep head at 45 degrees. Pain management. Gastric and deep venous thrombosis prophylaxis. Thank you and we will follow with you. Carol Zuñiga MD
[2018-04-11] MEDS: HYDROmorphone 0.5 mg/0.5 ml ISec IVP PRN ×3 (00:05→12:15)
[2018-04-11] MEDS: Albuterol-Ipratrop 3 mg / 0.5 (3 ml) UD IH SCH ×4 (03:00→21:39)
[2018-04-11] MEDS: Cefepime 1gm in NS 100ml 1 GM/100 ML BAG IVPB SCH ×3 (05:57→21:47)
[2018-04-11] MEDS: Vancomycin 1gm in NS 250ml 1 GM/250 ML BAG IVPB SCH ×2 (09:50→21:48)
--- NOTE | 2018-04-11 15:48 | PN ---
DATE: 04/11/2018 SUBJECTIVE: The patient is in bed in no acute distress, nontoxic. No fevers and chills. PHYSICAL EXAMINATION: VITAL SIGNS: Temperature is 98, blood pressure is 120/70, respiratory rate of 18. HEENT: Unremarkable. NECK: Supple. LUNGS: Have decreased breath sounds. HEART: Normal S1, S2. ABDOMEN: Soft. LABORATORY EXAMINATION: Reveals a white count of 10,300, hemoglobin of 9, platelets of 558. Chemistries reveals a BUN of 20, creatinine of 0.6 and vanco trough level of 16.4 and last creatinine from the 04/09/2018 is 0.6. Microbiology reveals the blood cultures no growth and urine cultures no growth and currently review of medication reveals the patient to be on vancomycin and cefepime. ASSESSMENT AND PLAN: A 68-year-old with systemic inflammatory response syndrome with a postop fever day #3 with the surgical site has minimal erythema, appears to be clean. No evidence of any pain or discharge. Currently on vancomycin and cefepime, day #6. We will discontinue the vancomycin in the next 24 and the cefepime in the next 24-48 hours. Case discussed with Dr. Marcos. Jon Gilliam MD
[2018-04-11] MEDS ORDERED: HYDROmorphone 0.5 mg/0.5 ml ISec IVP PRN (23:05)
[2018-04-12] MEDS: HYDROmorphone 0.5 mg/0.5 ml ISec IVP PRN (00:37)
[2018-04-12] MEDS: Albuterol-Ipratrop 3 mg / 0.5 (3 ml) UD IH SCH ×5 (01:33→20:31)
--- NOTE | 2018-04-12 02:13 | PN ---
DATE: 04/11/2018 PULMONARY PROGRESS NOTE REFERRING PHYSICIAN: Carley Luciano MD. SUBJECTIVE: She is out of bed to chair. Night was unremarkable. Feels okay. No headache. No rhinitis. No cough, no sputum production. No nausea, no vomiting, no diarrhea. Still left upper extremity is in sling. OBJECTIVE GENERAL: In no acute distress. VITAL SIGNS: Temperature is 98, heart rate 77, respiratory rate is 18, blood pressure 123/63, pulse ox 92% on room air. HEENT: Moist mucous membrane. No ulcer or thrush noted. NECK: Supple. No JVD. LUNGS: Have prolonged expiratory phase. HEART: S1 and S2. ABDOMEN: Soft, nontender. No organomegaly. EXTREMITIES: Left upper extremity is in sling. NEUROLOGIC: Awake, alert, follows simple commands. MEDICATIONS: She is on Dilaudid 0.5 mg every 4 hours p.r.n., vitamin D 50,000 units every 7 days, DuoNeb every 6 hours around the clock, lamotrigine 200 mg twice a day, cefepime 1 g IV every 8 hours, Pepcid 20 mg at bedtime, Tegretol 200 mg every 8 hours, Tylenol p.r.n., vancomycin 1 g IV every 12 hours, Zofran p.r.n. basis. LABORATORY DATA: Reviewed and showed no new lab is available since yesterday. IMPRESSION AND PLAN: Status post fall with left humeral fracture requiring open reduction and internal fixation, chronic obstructive lung disease, left lung mass, pulmonary hypertension, seizure disorder. Pulmonary point of view, doing okay. Continue bronchodilator. Keep head at 45 degrees. Gastric prophylaxis. Deep venous thrombosis prophylaxis. Pain management. Will need CT-guided biopsy before discharge. Thank you and we will follow with you. Carol Zuñiga MD
--- NOTE | 2018-04-12 04:07 | PN ---
DATE: 04/10/2018 SUBJECTIVE: Patient is a 68-year-old female. Patient was seen and examined on the bedside on 04/10/2018, looking comfortable. No nausea, vomiting, or diarrhea. No hematuria, no hematochezia. No headache, no dizziness. No chest pain, no palpitation. PHYSICAL EXAMINATION: VITAL SIGNS: Temperature 98, heart rate 73, respiratory rate 20, blood pressure 134/74, pulse oximetry 91% on 2 liter nasal cannula. HEENT: Head: Normocephalic, atraumatic. Eyes: PERRLA. Extraocular muscles intact. Conjunctivae clear. Nose: Patent. Mucous membrane moist. NECK: Supple. No carotid bruit. No JVD or thyromegaly. CHEST: Bilaterally symmetrical. HEART: S1 and S2 positive. LUNGS: Clear to auscultation. ABDOMEN: Soft. Bowel sounds present. No organomegaly. EXTREMITIES: Lower extremities, no edema, no cyanosis. NEUROLOGIC: Patient is awake and alert. Follows simple command. LABORATORY DATA: We do not have recent lab today, but I reviewed old labs. MEDICATIONS: Dilaudid, vitamin D, Lamictal, cefepime, Pepcid, Tylenol, vancomycin, and Zofran. ASSESSMENT AND PLAN: Ms. Leann Helm is a 68-year-old female, status post fall with left humeral fracture, requiring open reduction and fixation; also has chronic obstructive pulmonary disease; left lung mass; pulmonary hypertension; seizure disorder; history of stability disorder, but got under control, now back to normal. Neurologist is on the case. Waiting for lung biopsy. Gastrointestinal and deep vein thrombosis prophylaxis. Repeat labs. We will follow up. Get physical therapy. Carley Luciano MD
--- NOTE | 2018-04-12 04:28 | PN ---
DATE: 04/11/2018 SUBJECTIVE: Patient is a 68-year-old female. Patient was seen and examined on the bedside. Son and [id number] were sitting on the bedside also. No nausea, vomiting, or diarrhea. No hematuria or hematochezia. Tolerating food very well. Pain is under control. Getting physical therapy. Seen by the Orthopedic and Infectious Disease. Do not look like toxic and in no acute distress. No fever or chills. PHYSICAL EXAMINATION VITAL SIGNS: Temperature 98, blood pressure 120/70, respiratory rate 18, pulse 80. HEENT: Head: Normocephalic, atraumatic. Eyes: PERRLA. Extraocular muscles are intact. Conjunctivae clear. Nose: Patent. Mucous membrane moist. NECK: Supple. No carotid bruit, JVD, or thyromegaly. CHEST: Bilaterally symmetrical. HEART: S1 and S2 positive. LUNGS: Clear to auscultation. ABDOMEN: Soft. Bowel sounds present. No organomegaly. EXTREMITIES: No edema. No cyanosis. NEUROLOGICAL: Patient is awake and alert. Moving all four extremities. No focal deficit. MEDICATIONS: Dilaudid, vitamin D, DuoNeb, Lamictal, cefepime, Pepcid, Tegretol, Tylenol, vancomycin, Zofran. LABORATORY DATA: We do not have recent lab today, but I reviewed old labs. ASSESSMENT AND PLAN: Ms. Leann Helm is a 68-year-old lady with anemia; abnormal liver function test; has history of uncontrolled seizures, now it is within control; chronic obstructive pulmonary disease; history of heavy smoking; has left lung density needs biopsy that has to be done as outpatient. Dr. Homero Barton is on the case. History of systemic inflammatory response syndrome with postoperative fever, day 3, with the surgical site has minimal erythema, appears to be clean and healing very well. No evidence of any pain or discharge. Continue vancomycin and cefepime, day 6. We will discontinue the vancomycin in the next [address] Gilliam and cefepime in the next 24 [address] Gilliam's notes; he had discussion done with Dr. Weinberg. Seen Dr. Zuñiga's notes also. Latest, status post left humerus fracture, requiring open reduction and internal fixation by Dr. Weinberg. Pulmonary hypertension. Needs CT-guided biopsy of the lung mass. After the biopsy, we will decide about management. Gastric and deep venous thrombosis prophylaxis, out of bed, physical therapy. Carley Luciano MD
[2018-04-12] MEDS: Cefepime 1gm in NS 100ml 1 GM/100 ML BAG IVPB SCH ×3 (05:01→21:14)
[2018-04-12] MEDS: Vancomycin 1gm in NS 250ml 1 GM/250 ML BAG IVPB SCH ×2 (05:01→17:33)
[2018-04-12 06:47] LABS: HEMOGLOBIN 8.2 g/dL (12.0-16.0); MEAN CELL VOLUME 91.1 fl (80.0-105.0); MEAN CORPUSCULAR HEMOGLOBIN 29.2 pg (25.0-35.0); MEAN PLATELET VOLUME 8.3 fl (7.0-11.0); RBC 2.81 10^6/uL (3.5-6.1); RED CELL DISTRIBUTION WIDTH 13.7 % (11.5-14.5); WHITE BLOOD COUNT 11.6 10^3/ul (4.5-11.0)
[2018-04-12 07:40] LABS: BLOOD UREA NITROGEN 16 mg/dL (7-21); CALCIUM 8.6 mg/dL (8.4-10.5); GFR AFRICAN-AMERICAN > 60; GFR NON-AFRICAN AMERICAN > 60
--- NOTE | 2018-04-12 11:09 | PN ---
DATE: 04/09/2018 SUBJECTIVE: The patient is a 68-year-old female. The patient was seen and examined on the bedside on 04/09/2018. Sitting on the chair, looking comfortable. No nausea, vomiting, diarrhea. No hematuria or hematochezia. No swelling of the legs. No chest pain. No palpitation. No dizziness. PHYSICAL EXAMINATION: VITAL SIGNS: Temperature 98, heart rate 83, respiratory rate 20, blood pressure 163/96, pulse oximetry 96% on nasal cannula. HEENT: Head normocephalic, atraumatic. Eyes PERRLA. Extraocular muscles intact. Conjunctivae clear. Nose patent. Mucous membrane moist. NECK: Supple. No carotid bruit. No JVD or thyromegaly. CHEST: Bilaterally symmetrical. HEART: S1 and S2 positive. LUNGS: Clear to auscultation. ABDOMEN: Soft. Bowel sounds positive. No organomegaly. EXTREMITIES: No edema. No cyanosis. NEUROLOGICAL: The patient is awake and alert. Moving all 4 extremities. No focal deficits. LABORATORY DATA: Hemoglobin 9, hematocrit 28.4, white blood cells 10.3, platelets 558. Sodium 140, potassium 4.4, BUN 20, creatinine 0.6. MEDICATIONS: Dilaudid, vitamin D, DuoNeb, cefepime, Pepcid, Percocet, Tegretol, vancomycin, Zofran. ASSESSMENT AND PLAN: Ms. Leann Helm is a 68-year-old lady status post fall with left humeral fracture requiring open reduction and fixation by Dr. Weinberg. Chronic obstructive lung disease; left lung mass, preliminary; pulmonary hypertension; seizure disorder. The patient needs lung biopsy. Continue therapy. Waiting for good physical therapy. Repeat labs. We will follow up. Carley Luciano MD
--- NOTE | 2018-04-12 13:30 | PN ---
DATE: 04/12/2018 SUBJECTIVE: The patient is in bed and seen earlier today in 327. No fevers or chills. PHYSICAL EXAMINATION: VITAL SIGNS: Temperature is 98, blood pressure is 120/70, respiratory rate 16. HEENT: Unremarkable. NECK: Supple. LUNGS: Have decreased breath sounds. HEART: Normal S1, S2. ABDOMEN: Soft. EXTREMITIES: Examination of shoulder, has got mild erythema, no evidence of active infection. LABORATORY DATA: Reveals a white count of 11,600, hemoglobin of 8. BUN of 16, creatinine 0.6. Toxicology is noted and the patient's vancomycin trough of 16.4. Review of medication reveals the patient to be on vancomycin and cefepime and the patient's creatinine is 0.[address] Luciano's note is appreciated. Dr. Zuñiga's note is also appreciated. ASSESSMENT AND PLAN: A 68-year-old with systemic inflammatory response syndrome, postop fever day #4, surgical site had minimal erythema, not really evidence of infection. There is minimal pain, no discharge, today is day #7 of vancomycin and cefepime. We will discontinue the antibiotics after today's last dose. Case discussed with Dr. Weinberg. Jon Gilliam MD
--- NOTE | 2018-04-12 18:20 | PN ---
DATE: 04/12/2018 PULMONARY PROGRESS NOTE REFERRING PHYSICIAN: Dr. Luciano. SUBJECTIVE: She is lying in the bed at 45 degrees. Night was unremarkable. No cough. No sputum production, was short of breath on exertion. No nausea, vomiting, diarrhea, or leg swelling. Left upper extremity is in sling. Edema is improved. OBJECTIVE: GENERAL: In no acute distress. VITAL SIGNS: Temperature is 98, heart rate is 96, respiratory rate is 18, blood pressure 135/63, pulse oximetry of 91% on 2 liters nasal cannula. HEENT: Moist mucous membranes. No ulcer or thrush noted. NECK: Supple. No JVD. LUNGS: Have a fair airflow with rhonchi. HEART: S1, S2. ABDOMEN: Soft, nontender, no organomegaly. EXTREMITIES: No edema. NEUROLOGIC: Awake and alert and follows simple commands. MEDICATIONS: She is on Dilaudid 0.25 mg IV every 6 hours p.r.n., vitamin D 50,0000 units every 7 days, DuoNeb every 6 hours, Lamictal 200 mg twice a day, cefepime 1 g IV every 8 hours, Pepcid 20 mg at bedtime, Tegretol 200 mg three times a day, Tylenol p.r.n., vancomycin 1 g IV twice a day. DATA: Laboratory data shows hemoglobin 8.2, hematocrit 25.6, WBC 11.6, platelet is 653. Sodium 39, potassium 4.1, chloride 101, bicarbonate 28, BUN 16, creatinine 0.6, glucose 99, calcium is 8.6. IMPRESSION AND PLAN: Status post fall with left humeral fracture requiring open reduction and fixation, chronic obstructive lung disease, left lung mass, pulmonary hypertension, seizure disorder. Continue p.o. and inhaled bronchodilator. Gastric prophylaxis, DVT prophylaxis and place her on NicoDerm patch. We will follow with you. Carol Zuñiga MD
--- NOTE | 2018-04-13 00:21 | PN ---
DATE: 04/12/2018 SUBJECTIVE: The patient was seen and examined on bedside on 04/12/2018, looking comfortable. No nausea, vomiting, diarrhea. No hematuria or hematochezia. No swelling of the legs. No chest pain. No palpitation. No fever. No chills. Swelling of the left upper extremity is improving. PHYSICAL EXAMINATION: VITAL SIGNS: Temperature 98, heart rate 96, respiratory rate 18, blood pressure 130/60. HEENT: Head normocephalic, atraumatic. Eyes PERRLA. Extraocular muscles intact. Conjunctivae clear. Nose patent. NECK: Supple. No carotid bruit. No JVD or thyromegaly. CHEST: Bilaterally symmetrical. HEART: S1 and S2 positive. LUNGS: Clear to auscultation. ABDOMEN: Soft. Bowel sounds positive. No organomegaly. EXTREMITIES: No edema. No cyanosis of lower extremities. LABORATORY DATA: White blood cells 11.6, hemoglobin 8.2, hematocrit 25.6, platelets 653. Sodium 139, potassium 4.1, BUN 28, creatinine noted . MEDICATIONS: Dilaudid, vitamin D, DuoNeb, Lamictal, Cefepime, Pepcid, Tegretol, Tylenol, vancomycin. ASSESSMENT AND PLAN: Ms. Leann Helm, 68-year-old lady with multiple medical problems, status post fall with left humeral fracture requiring open reduction and internal fixation, chronic obstructive lung disease, left lung mass, pulmonary hypertension, seizure disorder. Continue p.o. and inhaled bronchodilators. Gastric prophylaxis. Deep venous thrombosis prophylaxis. Getting physical therapy. Needs biopsy, we will do as outpatient. Repeat labs. We will follow up. Carley Luciano MD [facility]
[2018-04-13] MEDS: HYDROmorphone 0.5 mg/0.5 ml ISec IVP PRN ×2 (01:28→08:08)
[2018-04-13] MEDS: Albuterol-Ipratrop 3 mg / 0.5 (3 ml) UD IH SCH ×4 (02:34→20:02)
[2018-04-13] MEDS: Vancomycin 1gm in NS 250ml 1 GM/250 ML BAG IVPB SCH ×2 (05:14→17:30)
[2018-04-13] MEDS: Cefepime 1gm in NS 100ml 1 GM/100 ML BAG IVPB SCH ×2 (05:15→14:14)
--- NOTE | 2018-04-13 15:50 | PN ---
DATE: 04/09/2018 SUBJECTIVE: The patient is a 68-year-old female. The patient was seen and examined on 04/09/2018. Looking comfortable. No nausea, vomiting, diarrhea. No hematuria or hematochezia. No swelling of the legs. No chest pain. No palpitation. No headache or dizziness. PHYSICAL EXAMINATION: VITAL SIGNS: Temperature 98, heart rate 83, respiratory rate 20, blood pressure 160/90, pulse oximetry 96% on nasal cannula. HEENT: Head normocephalic, atraumatic. Eyes PERRLA. Extraocular muscles are intact. Conjunctivae clear. Nose patent. Mucous membrane moist. NECK: Supple. No carotid bruit. No JVD or thyromegaly. CHEST: Bilaterally symmetrical. HEART: S1 and S2 positive. LUNGS: Have prolonged expiratory phase. ABDOMEN: Soft, nontender. No organomegaly. EXTREMITIES: There is no edema of the lower extremities. Left upper extremity is in the sling. Has some edema of the left upper extremity especially around the hand area. NEUROLOGIC: Awake, alert. Follows simple commands. LABORATORY DATA: Hemoglobin 9, hematocrit 28.4, white blood cells 10.3, platelets 558. Sodium 140, potassium 4.4, BUN 20, creatinine 0.6, AST 42, ALT 92. MEDICATIONS: Dilaudid, vitamin D, DuoNeb, Cefepime, Pepcid, Percocet, Tegretol, vancomycin. ASSESSMENT AND PLAN: Ms. Leann Helm, a 68-year-old lady with multiple medical problems, status post fall with left humeral fracture requiring open reduction and fixation; chronic obstructive lung disease; left lung mass, need biopsy; pulmonary hypertension; seizure disorder. The patient is improving, getting physical therapy. Planned to do biopsy. Discussion done with the family. We will follow up. Carley Luciano MD
[2018-04-14] MEDS: HYDROmorphone 0.5 mg/0.5 ml ISec IVP PRN (01:03)
[2018-04-14] MEDS: Albuterol-Ipratrop 3 mg / 0.5 (3 ml) UD IH SCH ×3 (01:11→13:08)
[2018-04-14] MEDS ORDERED: HYDROmorphone 0.5 mg/0.5 ml ISec IVP PRN (01:18)
--- NOTE | 2018-04-14 01:41 | PN ---
DATE: 04/13/2018 SUBJECTIVE: The patient is in bed, in no acute distress, nontoxic. PHYSICAL EXAMINATION: VITAL SIGNS: Temperature is 98, blood pressure is 130/60, respiratory rate of 18. HEENT: Unremarkable. NECK: Supple. LUNGS: Have decreased breath sounds. HEART: Normal S1, S2. ABDOMEN: Soft, nontender. LABORATORY EXAMINATION: Reveals a white count of 11,600, hemoglobin of 8. BUN of 16, creatinine of 0.6 and vanco trough is 16. Review of orders reveals the patient is on the vancomycin. ASSESSMENT AND PLAN: This is a 68-year-old female with systemic inflammatory response syndrome with a postoperative fever day #5 and surgical site with minimal erythema and completed 8 days of vancomycin. We will discontinue the vancomycin. The patient is for possible discharge. Patient also received meropenem, which has been discontinued by pharmacy. Jon Gilliam MD
--- NOTE | 2018-04-14 02:28 | PN ---
DATE: 04/13/2018 PULMONARY PROGRESS NOTE REFERRING PHYSICIAN: Carley Luciano MD SUBJECTIVE: She is out of bed to chair. Night was unremarkable. Feels better. No headache, no rhinitis. No cough. No nausea, no vomiting, no diarrhea. Left upper extremity pain is better. OBJECTIVE: GENERAL: In no acute distress. VITAL SIGNS: Temperature is 98, heart rate is 90, respiratory rate is 18, blood pressure 131/61, pulse ox 100% on 2 liters nasal cannula. HEENT: Moist mucous membrane. No ulcer or thrush noted. NECK: Supple. No JVD. LUNGS: Have a fair airflow, with rhonchi. HEART: S1 and S2. ABDOMEN: Soft, nontender. No organomegaly. EXTREMITIES: Left upper extremity is in sling. NEUROLOGIC: Awake and alert. Follows simple commands. MEDICATION: She is on Dilaudid 0.25 mg every 6 hours p.r.n., vitamin D 50,000 units every 7 days, DuoNeb every 6 hours, Lamictal is 200 mg twice a day, Nicoderm patch daily, Pepcid 20 mg at bedtime, Tegretol 200 mg three times a day, Tylenol p.r.n., vancomycin 1 g IV every 12 hours. LABORATORY DATA: Reviewed, no new lab is available. IMPRESSION AND PLAN: Status post fall with left humeral fracture requiring open reduction and fixation, chronic obstructive lung disease, left lung mass, pulmonary hypertension, seizure disorder. Pulmonary point of view, doing okay. Continue p.o. and inhaled bronchodilator. Her pulse ox is acceptable, does not need any supplemental oxygen. Scheduled for lung biopsy tomorrow. Gastric prophylaxis, deep venous thrombosis prophylaxis. Thank you and we will follow with you. Carol Zuñiga MD
--- NOTE | 2018-04-14 04:32 | PN ---
DATE: 04/13/2018 SUBJECTIVE: Patient is a 68-year-old female. Patient was seen and examined at the bedside on 04/13/2018. Patient is sitting on the chair, looking comfortable, curious to get biopsy of lung and know the result. No hematuria or hematochezia. No shortness of breath, no coughing. No fever, no chills. PHYSICAL EXAMINATION: VITAL SIGNS: Temperature 98.2, pulse 90, blood pressure 130/61, respiratory rate 18. HEENT: Head normocephalic, atraumatic. Eyes PERRLA. Extraocular muscles are intact. Conjunctivae clear. Nose patent. NECK: Supple. No carotid bruit. No JVD or thyromegaly. CHEST: Bilaterally symmetrical. HEART: S1 and S2 positive. LUNGS: Clear to auscultation. ABDOMEN: Soft. Bowel sounds present. No organomegaly. EXTREMITIES: Lower extremities, no edema. No cyanosis. NEUROLOGIC: Patient is awake, alert. Follows simple commands. MEDICATIONS: Dilaudid, vitamin D, DuoNeb, Lamictal, Nicoderm, Pepcid, Tegretol, Tylenol. LABORATORY DATA: We do not have recent lab today, but I reviewed old lab. ASSESSMENT AND PLAN: Mr. Leann Helm is a 68-year-old lady with leukocytosis, anemia, abnormal liver function test, has history of uncontrolled seizures, history of chronic obstructive pulmonary disease, status post fall with left humeral fracture requiring open reduction and fixation, chronic obstructive lung disease, left lung mass, pulmonary hypertension. Continue p.o. and inhaled bronchodilators. Gastric and deep vein thrombosis prophylaxis. Place patient on Nicoderm patch because of history of heavy smoking. Maybe biopsy tomorrow. Repeat labs. We will follow up. Carley Luciano MD
--- NOTE | 2018-04-14 12:29 | CP.PCM.PN ---
Subjective - Date & Time of Evaluation Date of Evaluation: 04/14/18 Time of Evaluation: 12:26 - Subjective Subjective: Pt awak, alert. Denies significant pain. Afebrile L shoulder: incision dry erythema resolved less swelling sutures intact NVI distally Pt to be d/c'd home today F/u in office 04/20 Objective - Vital Signs/Intake and Output Vital Signs (last 24 hours): Temp Pulse Resp BP Pulse Ox 98.2 F 90 18 131/61 100 04/13/18 17:38 04/13/18 17:38 04/13/18 17:38 04/13/18 17:38 04/13/18 17:38 Intake and Output: 04/14/18 04/14/18 06:59 18:59 Intake Total 420 Balance 420 - Medications Medications: Current Medications Acetaminophen (Tylenol 325mg Tab) 650 mg PO Q4H PRN PRN Reason: Fever >100.4 F Acetaminophen (Tylenol 325mg Tab) 650 mg PO Q4H PRN PRN Reason: moderate pain ( 4-7) Albuterol/Ipratropium (Duoneb 3 Mg/0.5 Mg (3 Ml) Ud) 3 ml IH [id number] [facility] Last Admin: 04/14/18 07:25 Dose: 3 ml Carbamazepine (Tegretol) 200 mg PO 0800,1200,1800 SONAL PRN Reason: Protocol Last Admin: 04/14/18 08:18 Dose: 200 mg Ergocalciferol (Drisdol 50,000 Intl Units Cap) 1 cap PO Q7D [facility] Last Admin: 04/07/18 20:10 Dose: 1 cap Famotidine (Pepcid) 20 mg PO HS [facility] Last Admin: 04/13/18 21:17 Dose: 20 mg Hydromorphone HCl (Dilaudid) 0.25 mg IVP Q8H PRN; Protocol PRN Reason: Pain, severe (8-10) Lamotrigine (Lamictal) 200 mg PO BID [facility] Last Admin: 04/14/18 09:22 Dose: 200 mg Nicotine (Nicoderm Cq) 1 patch TD DAILY [facility] Last Admin: 04/14/18 09:22 Dose: 1 patch - Labs Labs: 04/12/18 06:35 04/12/18 06:35 PT 11.6 SECONDS (9.4-12.5) 04/10/18 17:33 INR 1.02 (0.93-1.08) 04/10/18 17:33 APTT 33.8 Seconds (25.1-36.5) 04/10/18 17:33
[2018-04-14 14:08] VITALS: BP 156/66; PULSE 93; RESP 16; TEMP 98.1; O2SAT 98
--- NOTE | 2018-04-14 23:29 | PN ---
DATE: 04/14/2018 PULMONARY PROGRESS NOTE REFERRING PHYSICIAN: Carley Luciano MD SUBJECTIVE: The patient is lying in the bed. Night was unremarkable. Doing well for lung biopsy today upon discharge. No nausea, no vomiting, no diarrhea. No leg pain or leg swelling. OBJECTIVE: GENERAL: In no acute distress. VITAL SIGNS: Temp is 98, heart rate is 93, respiratory rate is 16, blood pressure 156/66, pulse ox 98% on 2 liters nasal cannula. HEENT: Moist mucous membranes. Small oral cavity. NECK: Supple. No JVD. LUNGS: Have a fair airflow. HEART: S1 and S2. ABDOMEN: Soft, nontender, no organomegaly. EXTREMITIES: No edema. Left upper extremity is in sling. NEUROLOGIC: Awake and alert. Follows simple commands. LABORATORY DATA: Reviewed. No new laboratory data reported. MEDICATIONS: Reviewed. No changes reported. IMPRESSION AND PLAN: Status post fall with humeral fracture requiring open reduction and fixation, chronic obstructive lung disease, left lung mass, pulmonary hypertension, seizure disorder. Patient is being discharged home. We will have a lung biopsy. Case discussed with Dr. Homero Barton in detail. I also spoke to patient. Orthopedic, Dr. Weinberg's note reviewed. We will have therapy as outpatient. Follow up with Dr. Luciano. We will follow once the pathology report is back. Thank you and we will follow with you. Carol Zuñiga MD
== END 2018-04-14 16:37 | disposition home or self-care (01) | DRG 560 ==
LOC: TRCU 18:05
PROVIDERS: ADMIT Internal Medicine; ATTEND Internal Medicine
PROC: 3E03329 Introduction of Other Anti-infective into Peripheral Vein, Percutaneous Approach (ICD-10-PCS; 2018-04-06)
PROC: F07Z9ZZ Gait Training/Functional Ambulation Treatment (ICD-10-PCS; principal; 2018-04-08)
PROC: F07L6ZZ Therapeutic Exercise Treatment of Musculoskeletal System - Lower Back / Lower Extremity (ICD-10-PCS; 2018-04-08)
PROC: F08Z1FZ Dressing Techniques Treatment using Assistive, Adaptive, Supportive or Protective Equipment (ICD-10-PCS; 2018-04-10)
DX: S42.302D Unspecified fracture of shaft of humerus, left arm, subsequent encounter for fracture with routine healing (principal); R65.10 Systemic inflammatory response syndrome (SIRS) of non-infectious origin without acute organ dysfunction; G40.909 Epilepsy, unspecified, not intractable, without status epilepticus; D64.9 Anemia, unspecified; I27.20 Pulmonary hypertension, unspecified; F17.200 Nicotine dependence, unspecified, uncomplicated; J44.9 Chronic obstructive pulmonary disease, unspecified; R91.8 Other nonspecific abnormal finding of lung field; W19.XXXD Unspecified fall, subsequent encounter; Z79.2 Long term (current) use of antibiotics

== ENCOUNTER 2018-04-14 14:27 | Day surgery (SDC) | payer MEDICARE, BC ==
[2018-04-14 09:53] VITALS: BMI 15.7
[2018-04-14] MEDS ORDERED: Midazolam 2 MG/2 ML VIAL ONE (15:22)
[2018-04-14] MEDS ORDERED: Lidocaine 1% Inj (20ml) ONE (15:23)
[2018-04-14] MEDS ORDERED: Sodium Chloride 0.45% 1,000 ML IV SCH (16:45)
--- NOTE | 2018-04-14 18:05 | CT ---
PROCEDURE: CT guided left lower lobe lung biopsy. HISTORY: Smoker. 11 mm spiculated left lower lobe nodule. Evaluate for malignancy PHYSICIAN(S): Homero Barton MD. TECHNIQUE: The relative risks and indications of the procedure were explained to the patient and consent obtained. The patient was placed right decubitus position on the CT scanner and preliminary images through the upper lungs obtained. Conscious sedation and monitoring were provided throughout the procedure by a nurse. There is moderate emphysema present. An 11 mm spiculated noncalcified nodule is seen in the superior segment left lower lobe adjacent to the fissure.. A left posterior approach was selected and the area prepped and draped in the usual sterile fashion. 1% Xylocaine was used to anesthetize the skin and soft tissues. A 19 gauge guiding needle was advanced into the 11 mm left lower lobe lung nodule.. Its position was confirmed with CT. Using coaxial technique, multiple core biopsies were obtained. The postprocedure images demonstrated a small left pneumothorax. The patient was asymptomatic and her vital signs stable. A follow-up chest x-ray has been ordered. IMPRESSION: 1. CT-guided left lower lobe lung biopsy as described above.
[2018-04-14] MEDS: Oxycodone/Acetaminophen 5/325 mg Tab PO PRN (23:38)
[2018-04-15] MEDS: Oxycodone/Acetaminophen 5/325 mg Tab PO PRN (04:17)
[2018-04-15 08:51] VITALS: BP 153/69; PULSE 77; RESP 20; TEMP 98.2; O2SAT 96
--- NOTE | 2018-04-15 09:53 | RAD ---
HISTORY: Left lung biopsy COMPARISON: Comparison made with prior study 04/05/2018 comparison also made with prior CT scan chest 03/30/2018. FINDINGS: LUNGS: Left apical pneumothorax. Previously described 1 cm spiculated nodule left lower lobe is poorly seen as compared to CT scan chest 03/30/2015. Significant centrilobular emphysematous changes with upper lobe predominance noted though also seen to better advantage on prior CT scan chest. Questionable bibasilar atelectasis and bilateral effusions PLEURA: As above. . CARDIOVASCULAR: Heart size remains enlarged. OSSEOUS STRUCTURES: ORIF changes left humeral head and proximal humeral shaft VISUALIZED UPPER ABDOMEN: Normal. OTHER FINDINGS: None. Left apical pneumothorax. Spiculated left lower lobe IMPRESSION: Small left apical pneumothorax 1 cm spiculated nodule left lower lobe poorly seen. Centrilobular emphysematous changes upper lobe predominance. Questionable bibasilar atelectasis and bilateral effusions
--- NOTE | 2018-04-15 10:02 | RAD ---
HISTORY: Status post left lung biopsy COMPARISON: Comparison made with prior chest radiograph 04/14/2018. FINDINGS: LUNGS: Small residual left apical pneumothorax remains. This appears to have diminished in size slightly from prior exam. Questionable bibasilar atelectasis and bilateral effusions left larger than right PLEURA: As above. CARDIOVASCULAR: Normal. OSSEOUS STRUCTURES: ORIF changes left humeral head and proximal humeral shaft again noted VISUALIZED UPPER ABDOMEN: Normal. OTHER FINDINGS: None. IMPRESSION: Small residual left apical pneumothorax remains. This appears to have diminished in size slightly from prior exam. Questionable bibasilar atelectasis and bilateral effusions left larger than right
== END 2018-04-15 13:42 | disposition home or self-care (01) ==
LOC: SDS 14:27 → 5RSO 19:20 → SDS 04-15 13:42
PROVIDERS: ATTEND Radiology Vascular & Interventional Radiology
DX: C34.32 Malignant neoplasm of lower lobe, left bronchus or lung (principal); F17.200 Nicotine dependence, unspecified, uncomplicated; I10 Essential (primary) hypertension; J43.9 Emphysema, unspecified; J95.811 Postprocedural pneumothorax; Y84.8 Other medical procedures as the cause of abnormal reaction of the patient, or of later complication, without mention of misadventure at the time of the procedure
CPT/HCPCS: 32405; 71045 ×2; 77012; 88305; 99152; 99153; J2250; J2405; J3010; J7030 ×2

== ENCOUNTER 2018-05-12 11:32 | Day surgery (SDC) | payer MEDICARE, BC ==
[2018-05-12 12:06] LABS: BASO # 0.05 K/mm3 (0.0-2.0); BASO % 0.5 % (0.0-3.0); EOS % 0.4 % (1.5-5.0); GRAN # 6.58 (1.4-6.5); HEMOGLOBIN 11.7 g/dL (12.0-16.0); LYMPH # 2.4 (1.2-3.4); LYMPH % 25.5 % (22.0-35.0); MEAN CELL VOLUME 92.4 fl (80.0-105.0); MEAN CORPUSCULAR HEMOGLOBIN 29.5 pg (25.0-35.0); MEAN CORPUSCULAR HGB CONC 31.9 g/dl (31.0-37.0); MEAN PLATELET VOLUME 9.1 fl (7.0-11.0); MONO # 0.4 (0.1-0.6); MONO % 4.6 % (1.0-6.0); RBC 3.97 10^6/uL (3.5-6.1); RED CELL DISTRIBUTION WIDTH 14.4 % (11.5-14.5); WHITE BLOOD COUNT 9.6 10^3/ul (4.5-11.0)
[2018-05-12 12:15] LABS: BLOOD UREA NITROGEN 24 mg/dL (7-21); CALCIUM 9.5 mg/dL (8.4-10.5); GFR AFRICAN-AMERICAN > 60; GFR NON-AFRICAN AMERICAN > 60
[2018-05-12 12:25] LABS: INR 1.06 (0.93-1.08); PARTIAL THROMBOPLASTIN TIME 34.8 Seconds (25.1-36.5); PROTHROMBIN TIME 12.2 SECONDS (9.4-12.5)
[2018-05-12] MEDS ORDERED: Midazolam 2 MG/2 ML VIAL ONE (13:45)
[2018-05-12] MEDS ORDERED: Lidocaine 1% Inj (20ml) ONE ×2 (13:46→14:26)
[2018-05-12] MEDS ORDERED: Oxycodone/Acetaminophen 5/325 mg Tab PO PRN (14:47)
[2018-05-12] MEDS ORDERED: Sodium Chloride 0.45% 1,000 ML IV SCH (15:00)
[2018-05-12 15:35] VITALS: PULSE 72; RESP 18; TEMP 98.1; O2SAT 98
[2018-05-12 17:40] VITALS: BP 156/86
--- NOTE | 2018-05-12 19:32 | CT ---
PROCEDURE: CT guided right 6th rib biopsy. HISTORY: Lung carcinoma. Small lytic right 6 rib lesion. Positive PET. Evaluate for metastatic disease. PHYSICIAN(S): Homero Barton MD. TECHNIQUE: The relative risks and indications of the procedure were explained to the patient and consent obtained. The patient was placed supine on the CT scanner and preliminary images through the mid chest obtained. Conscious sedation and monitoring were provided throughout the procedure by a nurse. There is a subtle sclerotic lesion involving the lateral aspect of the right 6th rib.. A right lateral approach was selected and the area prepped and draped in the usual sterile fashion. 1% Xylocaine was used to anesthetize the skin and soft tissues. And on control needle was carefully advanced against the sclerotic lesion in the right 6th rib laterally. Multiple repositioning is were required. A large core biopsy of the sclerotic area was performed. The patient tolerated the procedure well. IMPRESSION: 1. CT-guided right 6th rib biopsy as described above.
--- NOTE | 2018-05-16 14:19 | RAD ---
HISTORY: rt rib bx. r/o PTX COMPARISON: 04/15/2018. FINDINGS: LUNGS: The lungs are hyperinflated and there is peribronchial thickening with chronic changes in both lungs. There is a new round opacity in the left lower lobe. PLEURA: No significant pleural effusion identified, no pneumothorax apparent. CARDIOVASCULAR: Normal. OSSEOUS STRUCTURES: There is mild irregularity in the right lateral 6th rib. No destructive bony lesion. VISUALIZED UPPER ABDOMEN: Normal. OTHER FINDINGS: There is soft tissue swelling and emphysema lateral to the mid ribs at the site of surgical intervention. IMPRESSION: Round opacity in the left lower lobe is nonspecific and may represent pneumonia or round atelectasis. Follow-up PA and lateral radiographs/ CT scan is recommended for further characterization. No pneumothorax.
== END 2018-05-12 18:30 | disposition home or self-care (01) ==
LOC: SDS 11:32
PROVIDERS: ATTEND Radiology Vascular & Interventional Radiology
DX: D16.7 Benign neoplasm of ribs, sternum and clavicle (principal); C34.91 Malignant neoplasm of unspecified part of right bronchus or lung; J43.9 Emphysema, unspecified; F17.200 Nicotine dependence, unspecified, uncomplicated
CPT/HCPCS: 20225; 36415; 71045; 77012; 80048; 85025; 85610; 85730; 88305; 88311; 99152; 99153; J2250; J2405; J3010; J7030

== ENCOUNTER 2018-11-04 09:18 | Inpatient (IN) | payer MEDICARE, BC ==
[2018-11-04 09:28] VITALS: BMI 15.1
--- NOTE | 2018-11-04 09:39 | ED PDOC ---
Arrival/HPI - General Chief Complaint: Trauma Time Seen by Provider: 11/04/18 09:26 Historian: Patient - History of Present Illness Narrative History of Present Illness (Text): 11/04/18 09:38 68 f with pmhx of fractured hip and seizures presents to the ED s/p fall from earlier this morning. Patient reports she was trying to stand up when she felt numbness in her feet and could not stand up properly causing her to fall on her right side. Patient states she struggled to get up and called 911. Patient notes pain to her right hip and right ribs. Patient denies any loss of consciousness, head injury, or any other complaints. PMD: Dr. Luciano Time/Duration: 4-6 hours (earlier this morning) Symptom Onset: Sudden Activities at Onset: Light Context: Home Past Medical History - Provider Review Nursing Documentation Reviewed: Yes - Infectious Disease Hx of Infectious Diseases: None - Tetanus Immunization Tetanus Immunization: Unknown - Reproductive Menopause: Yes - Cardiac Hx Pacemaker: No - Pulmonary Hx Chronic Obstructive Pulmonary Disease (COPD): Yes - Neurological Hx Seizures: Yes - HEENT Hx HEENT Disorder: No - Renal Hx Renal Disorder: No - Endocrine/Metabolic Hx Endocrine Disorders: No - Hematological/Oncological Hx Blood Transfusions: Yes - Integumentary Hx Dermatological Disorder: No - Musculoskeletal/Rheumatological Hx Musculoskeletal Disorders: Yes (HX HIP FX;L HUMERUS FX) - Gastrointestinal Hx Gastrointestinal Disorders: Yes - Genitourinary/Gynecological Hx Genitourinary Disorders: No - Psychiatric Hx Emotional Abuse: No Hx Physical Abuse: No Hx Substance Use: No - Surgical History Other/Comment: R hip surgery - Anesthesia Hx Anesthesia Reactions: No Hx Malignant Hyperthermia: No - Suicidal Assessment Feels Threatened In Home Enviroment: No Family/Social History - Physician Review Nursing Documentation Reviewed: Yes Family/Social History: No Known Family HX Smoking Status: Current Some Days Smoker Hx Alcohol Use: No Hx Substance Use: No Hx Substance Use Treatment: No Allergies/Home Meds Allergies/Adverse Reactions: Allergies No Known Allergies Allergy (Verified 04/06/18 18:43) Home Medications: Home Meds Medication Instructions Recorded Confirmed Ergocalciferol [Drisdol 50,000 50,000 units PO Q7D 05/09/18 05/12/18 Intl Units Cap] Review of Systems - Physician Review All systems were reviewed & negative as marked: Yes - Review of Systems Musculoskeletal: Other (+right hip pain, +pain to the right rib area) Neurological: absent: Other (no loss of consciousness, no head injury) Physical Exam - Physical Exam Narrative Physical Exam (Text): 11/04/18 09:40 Gen: VS reviewed, alert, well developed, well nourished, nontoxic, mild distress, frail. ENT: normal pharynx. Eye: EOMI, PERRL. Neck: no JVD, supple, no adenopathy. CV: regular rate, regular rhythm, no rubs, no murmur, no gallops, S1, S2, pulses equal and strong. Pulm: no distress, clear to auscultation, no wheeze, no rhonchi, breath sounds equal, no rales. Abd: soft, nontender, no guarding, no rebound, no rigidity, normal bowel sounds. Ext: Questionable tenderness to right greater trochanter area, full range of motion of right hip, mild bruising to dorsum of right wrist. Skin: good color, no rash, no cyanosis. Psych: responds appropriately to questions, normal affect. Neuro: oriented x 3, CN2-12 intact grossly, motor intact, sensation intact. Vital Signs Reviewed: Yes Vital Signs Temp Pulse Resp BP Pulse Ox 11/04/18 09:18 98.2 F 109 H 20 177/88 H 88 L Temperature: Afebrile Blood Pressure: Hypertensive Pulse: Tachycardic Respiratory Rate: Normal Appearance: Positive for: Non-Toxic Medical Decision Making ED Course and Treatment: 11/04/18 09:40 11/04/18 13:30 patient cannot ambulate/bear weight second to pain, will arrange for admission as there is a strong suspicion for fracture. i have been in contact with the radiologist and dr. richardson will get back to me regarding review of xray. 11/04/18 13:[address] luciano, patient to be admitted for ambulatory dysfunction, suspected right proximal femur fracture. consult to dr. marie. patient is agreeable to staying in the hospital as she admitted that she cannot walk/ambulate due to the pain. 11/04/18 16:48 - RAD Interpretation Narrative RAD Interpretations (Text): 11/04/18 14:24 Procedure: Right Hip Radiographs Time: 11/04/2018 13:49:35 Dictator: Shira Coyne MD Impression: Postsurgical fixation of the right hip. Osseous demineralization limits evaluation for acute fracture lines. Callus formation consistent with remote fracture deformity. Acute on chronic fracture cannot be entirely excluded. Correlate clinically. Case discussed with Dr. Cintron on 11/04/18 at 1:47 p.m.. 11/04/18 15:56 Procedure: Right femure Radiographs Time: 11/04/2018 15:49:35 Dictator: Shira Coyne MD Impression: No acute displaced fracture or dislocation identified. 11/04/2018 16:07 Ribs X-Ray IMPRESSION: 2 mildly displaced right lateral lower lobe rib fracture deformities (8th and 9th ribs). Dictator: Shira Richardson MD 11/04/2018 16:08 Wrist X-Ray IMPRESSION: Osseous demineralization. No acute displaced fracture, dislocation, significant joint effusion identified. If symptoms persist, or there is continued clinical concern, x-ray follow-up in 7-10 days should be considered. Dictator: Shira Richardson MD Medical Assistant Float: Radiologist - EKG Interpretation EKG Interpretation (Text): 11/04/18 16:33 1438: sinus tachycardia at 11 bpm, nml qrs, poor r wave progression, nonspecific t wave abn Interpreted by ED Physician: Yes - Scribe Statement The provider has reviewed the documentation as recorded by the Renita Navas All medical record entries made by the Scribe were at my direction and personally dictated by me. I have reviewed the chart and agree that the record accurately reflects my personal performance of the history, physical exam, medical decision making, and the department course for this patient. I have also personally directed, reviewed, and agree with the discharge instructions and disposition. Disposition/Present on Arrival - Present on Arrival Any Indicators Present on Arrival: No History of DVT/PE: No History of Uncontrolled Diabetes: No Urinary Catheter: No History of Decub. Ulcer: No History Surgical Site Infection Following: Orthopedic Procedures - Disposition Have Diagnosis and Disposition been Completed?: Yes Diagnosis: Hip pain, Fall Disposition: HOSPITALIZED Disposition Time: 13:36 Patient Plan: Admission Patient Problems: Current Active Problems Problem Status Onset Hip pain Acute Fall Acute Condition: STABLE
[2018-11-04] MEDS ORDERED: Lidocaine 5% Patch TD STA (09:50)
[2018-11-04 10:41] LABS: BASO # 0.01 K/mm3 (0.0-2.0); BASO % 0.1 % (0.0-3.0); GRAN # 10.75 (1.4-6.5); GRAN % 87.8 % (50.0-68.0); HEMOGLOBIN 12.5 g/dL (12.0-16.0); LYMPH # 0.8 (1.2-3.4); LYMPH % 6.7 % (22.0-35.0); MEAN CELL VOLUME 88.2 fl (80.0-105.0); MEAN CORPUSCULAR HEMOGLOBIN 28.8 pg (25.0-35.0); MEAN CORPUSCULAR HGB CONC 32.6 g/dl (31.0-37.0); MEAN PLATELET VOLUME 8.7 fl (7.0-11.0); MONO # 0.7 (0.1-0.6); MONO % 5.4 % (1.0-6.0); RBC 4.34 10^6/uL (3.5-6.1); RED CELL DISTRIBUTION WIDTH 12.8 % (11.5-14.5); WHITE BLOOD COUNT 12.2 10^3/uL (4.5-11.0)
[2018-11-04 10:50] LABS: ALB/GLOB RATIO 1.1 (1.1-1.8); ALT/SGPT 24 U/L (7-56); AST/SGOT 51 U/L (14-36); BLOOD UREA NITROGEN 18 mg/dL (7-21); CALCIUM 9.4 mg/dL (8.4-10.5); GFR NON-AFRICAN AMERICAN > 60
--- NOTE | 2018-11-04 13:53 | RAD ---
Date of service: 11/04/2018 Indication: fall, injury Right hip radiographs, 2 images Comparison: PET-CT performed 04/28/18, pelvis radiographs performed 11/26/15 Findings: Postsurgical fixation with intramedullary cisco and screw fixation, partially imaged. Evidence of callus formation and deformity of the greater and lesser trochanters, favored chronic. Osseous demineralization limits evaluation for acute fracture lines. No evidence of dislocation. Vascular calcifications. Impression: Postsurgical fixation of the right hip. Osseous demineralization limits evaluation for acute fracture lines. Callus formation consistent with remote fracture deformity. Acute on chronic fracture cannot be entirely excluded. Correlate clinically. Case discussed with Dr. Cintron on 11/04/18 at 1:47 p.m..
--- NOTE | 2018-11-04 15:53 | RAD ---
Date of service: 11/04/2018 Indication: fall Right femur radiographs Comparison: None available Findings: Partially imaged medullary cisco and screw fixation. No acute osseous abnormality is detected. Vascular calcifications. Soft tissues appear otherwise unremarkable. Impression: No acute displaced fracture or dislocation identified.
--- NOTE | 2018-11-04 16:10 | RAD ---
Date of service: 11/04/2018 PROCEDURE: Radiographs of the Chest and Right Ribs. HISTORY: fall COMPARISON: Chest x-ray performed 05/12/18 TECHNIQUE: Frontal radiograph of the chest and multiple oblique radiographs of the right ribs were obtained. FINDINGS: RIGHT RIBS: 2 mildly displaced right lateral lower lobe rib fracture deformities (8th and 9th ribs). LUNGS: No focal consolidation. PLEURA: No significant pleural effusion. No definite pneumothorax. CARDIOVASCULAR: Cardiomegaly. Atherosclerotic calcifications of the aorta. OTHER FINDINGS: None. IMPRESSION: 2 mildly displaced right lateral lower lobe rib fracture deformities (8th and 9th ribs). Findings discussed with Dr. Cintron on 11/04/18 at 4 p.m.
--- NOTE | 2018-11-04 16:12 | RAD ---
PROCEDURE: Right Wrist Radiographs. HISTORY: fall, injury COMPARISON: None available. FINDINGS: Pulse oximeter limits evaluation, particularly of the distal 2nd phalanx. BONES: Osseous demineralization limits evaluation for acute fracture lines. No acute displaced fracture. JOINTS: No dislocation. SOFT TISSUES: No evidence of radiopaque foreign body OTHER FINDINGS: None. IMPRESSION: Osseous demineralization. No acute displaced fracture, dislocation, or significant joint effusion identified. If symptoms persist, or if there is continued clinical concern, x-ray follow-up in 7-10 days should be considered.
[2018-11-04] MEDS ORDERED: Ergocalciferol 50,000 Intl Units Cap PO SCH (20:00)
[2018-11-04] MEDS ORDERED: Pneumococcal 23-Valent Vaccine IM ONE (22:28)
[2018-11-04] MEDS ORDERED: Influenza Vaccine 60 mcg/0.5 mL SYR (4YR UP) IM ONE (22:28)
--- NOTE | 2018-11-05 00:33 | CON ---
DATE OF CONSULTATION: 11/04/2018 REFERRING PHYSICIAN: Carley Luciano MD REASON FOR CONSULTATION: Chronic lung disease, history of lung cancer, status post fall with the hip pain. HISTORY OF PRESENT ILLNESS: This is a 68-year-old female known to me from previous admissions in our office with multiple medical issues, known to have seizure disorder, history of multiple falls, history of left humerus fracture requiring surgery, also history of hip fracture in the past. She most recently had a thoracotomy with cancer removal from the left lung. Apparently, she tripped and had a fall on hip, complaining of right hip pain, could not stand up and walk, brought into emergency room, had x-ray of the hip done, which could not definitely rule out hip fracture, was admitted for further workup. She does have cough and shortness of breath. No chest pain. No nausea, no vomiting. PAST MEDICAL HISTORY: As per history of present illness. History of anemia. FAMILY HISTORY: No significant cardiopulmonary disease reported. SOCIAL HISTORY: Still smoker. Denies any alcohol use. MEDICATIONS: She is on vitamin D 50,000 units weekly, Lamictal 200 mg twice a day, Lidoderm patch at affected area, Nicoderm patch daily, Tegretol 200 mg three times a day. ALLERGIES: NONE KNOWN. REVIEW OF SYSTEMS: No headache or rhinitis. Does have cough and shortness of breath. No chest pain. No abdominal pain. No dysuria. Has right hip pain. No leg swelling. PHYSICAL EXAMINATION: VITAL SIGNS: Temperature is 98, heart rate is 118, respiratory rate is 20, blood pressure 138/53, pulse ox 92% on 2 liters nasal cannula. HEENT: Small oral cavity. NECK: Supple. No JVD. LUNGS: Poor airflow at bases. HEART: S1 and S2, tachycardic. ABDOMEN: Soft, nontender. No organomegaly. EXTREMITIES: Right hip tenderness on palpation. There is no edema. NEUROLOGIC: Awake, alert, and follows simple commands. LABORATORY DATA: Hemoglobin 12.5, hematocrit 38.3, WBC 12.2, platelets 441,000. Sodium 138, potassium 2.9, chloride 102, bicarbonate 28, BUN 18, creatinine 0.6, glucose 122, calcium 9.4, magnesium 1.7. Total bili 0.6, ALT 24, AST 51, alk phos is 138. Albumin is 4.0. She had a hip x-ray done, which shows postsurgical fixation of the right hip where she has demineralization limiting the evaluation of acute fracture line, callus formation consistent with remote fracture deformity, cannot rule out [id number] fracture. She also has rib x-rays done, which show two mildly displaced right lateral lower rib fracture deformities 8th and 9th rib. There is also wrist x-ray done, which shows minimal osseous demineralization. IMPRESSION: Status post fall, cannot rule out fracture; chronic obstructive lung disease; lung cancer, status post thoracotomy; pulmonary hypertension; seizure disorder. PLAN: Case discussed with ER physician. Also spoke to Dr. Luciano. The patient being admitted, will be seen by Orthopedic Surgery, Dr. Marcos. May need further radiological workup and gastric prophylaxis, DVT prophylaxis, inhaled bronchodilator. The patient has to stop smoking. Thank you and we will follow with you. Carol Zuñiga MD
[2018-11-05 07:41] LABS: HEMOGLOBIN 11.6 g/dL (12.0-16.0); MEAN CELL VOLUME 88.6 fl (80.0-105.0); MEAN CORPUSCULAR HEMOGLOBIN 28.6 pg (25.0-35.0); MEAN CORPUSCULAR HGB CONC 32.3 g/dl (31.0-37.0); MEAN PLATELET VOLUME 8.7 fl (7.0-11.0); RBC 4.05 10^6/uL (3.5-6.1); WHITE BLOOD COUNT 11.1 10^3/uL (4.5-11.0)
--- NOTE | 2018-11-05 07:50 | HP ---
DATE: 11/04/2018 The patient was seen and examined at the bedside on 11/04/2018. CHIEF COMPLAINT: Fall and trauma. HISTORY OF PRESENT ILLNESS: Ms. Leann Helm is a 68-year-old female with past medical history of fractured hip, seizure disorder, came to the emergency room department after a fall from earlier this morning. The patient reports that she was trying to stand up, then she felt numbness in her feet and could not stand up properly causing her to fall on her right side. The patient stated that she struggled to get up and called 911. The patient noticed the pain on her right hip and right ribs. The patient denies any loss of consciousness, head injury. No shortness of breath. No hematuria or hematochezia. No headache. No dizziness. PAST MEDICAL HISTORY: COPD, seizure, blood transfusion, history of hip fracture, left humerus fracture, history of lung cancer, heavy smoking. FAMILY HISTORY: Father and mother are noncontributory. HABITS: History of heavy smoking , smokes some days. No substance use. No alcohol use. ALLERGIES: THE PATIENT IS NOT ALLERGIC TO ANY MEDICATIONS. HOME MEDICATION: Vitamin D. REVIEW OF SYSTEMS: The patient was seen and examined by me in the emergency room, complaining about right hip pain, pain to the right rib area. No fever. No chills. No hematuria or hematochezia. No headache. No dizziness. PHYSICAL EXAMINATION: VITAL SIGNS: Temperature 98.2, pulse 109, respiratory rate 20, blood pressure 177/88, pulse oximetry 88%. HEENT: Head is normocephalic and atraumatic. Eyes; PERRLA. Extraocular muscles intact. Conjunctivae clear. Nose patent. Mucous membranes are moist. NECK: Supple. No carotid bruit. No JVD or thyromegaly. CHEST: Bilaterally symmetrical. LUNGS: Clear to auscultation. ABDOMEN: Soft. Bowel sounds positive. No organomegaly. EXTREMITIES: No edema. No cyanosis. NEUROLOGIC: The patient is awake and alert. Follow simple commands. LABORATORY DATA: White blood cells 12.2, hemoglobin 12.5, hematocrit 38.3 and platelets 441. Sodium 138, potassium 3.9, BUN 18, creatinine 0.6, glucose 122, AST 51, alkaline phosphatase is 138. ASSESSMENT AND PLAN: Ms. Leann Helm is a 68-year-old lady with leukocytosis, hyperglycemia, abnormal liver function test, history of fall. Hip CT done and results are pending. Wrist x-ray done, no acute displaced fracture or location or significant joint effusion. X-ray of the rib was done, showed mildly displaced right lateral lower lobe rib fractures, deformity is eight and ninth. Femur x-ray done, no acute displaced fracture or dislocation identified. X-ray of the hip and pelvis was done. Post-surgical fixation of the right hip, osseous demineralization limits evaluation for acute fracture lines, callus formation is consistent with remote fracture deformity, acute on chronic fracture cannot be entirely excluded. CAT scan done, results are pending. The patient has history of seizures, lung cancer, chronic obstructive pulmonary disease, heavy smoker, anemia, history of blood transfusion, history of hip fracture and left shoulder fracture, history of right hip surgery, history of heavy smoking, now once in a while smoking, Dr. Weinberg's consult was called, rib fracture, hip pain, fall, history of lung cancer, chronic obstructive pulmonary disease, discussion done with Dr. Geoff Cintron and Dr. Zuñiga ordered repeat labs. We will follow up. Carley Luciano MD MTDD
[2018-11-05] MEDS: Budesonide 0.5 mg/2 ml Inhal Susp UD IH SCH ×2 (08:14→19:25)
[2018-11-05] MEDS: Arformoterol 15 mcg/2 ml Inh Sol IH SCH ×2 (08:14→19:25)
[2018-11-05 08:15] LABS: BLOOD UREA NITROGEN 19 mg/dL (7-21); CALCIUM 8.7 mg/dL (8.4-10.5); GFR NON-AFRICAN AMERICAN > 60
[2018-11-05] MEDS: Enoxaparin 40 mg Syringe SC SCH (10:35)
[2018-11-05] MEDS: Lidocaine 5% Patch TD SCH (10:37)
--- NOTE | 2018-11-05 15:16 | PN ---
DATE: 11/05/2018 PULMONARY PROGRESS NOTE REFERRING PHYSICIAN: Dr. Luciano SUBJECTIVE: She is lying in the bed, feels better, has some cough and shortness breath. No chest pain. No nausea, no vomiting, right hip pain is better. Able to move the legs today. No nausea, no vomiting. OBJECTIVE: VITAL SIGNS: Temperature is 98, heart rate 90, respiratory is 18, blood pressure 125/80, pulse of 98%, 2 liters cannula. HEENT: Moist mucous membrane. Crowded airway. NECK: Supple. No JVD. LUNGS: Have a fair airflow. Prolonged expiratory phase. HEART: S1, S2. ABDOMEN: Soft, nontender, no organomegaly. EXTREMITIES: There is no edema. Still have left hip discomfort on palpation. NEUROLOGIC: Awake, alert and follows simple command. MEDICATIONS: She is on Brovana inhaled twice a day, vitamin D 50,000 units every 7 days, Lamictal is 200 mg twice a day, Lidoderm patch at affected area, Lovenox 40 mg subcu daily, Nicoderm patch daily, Pepcid 40 mg daily, Pulmicort inhaled twice a day, Tegretol 200 mg three times a day. LABORATORY DATA: Shows hemoglobin 11.6, hematocrit 35.9, WBC 11.1, platelet is 389. Sodium 135, potassium 2.9, chloride 102, bicarbonate 25, BUN 19, creatinine 0.7, glucose is 99, calcium is 8.7. TSH is 0.73. IMPRESSION AND PLAN: Status post fall, fracture of the hip is being ruled out, chronic obstructive lung disease, lung cancer status post thoracotomy and resection of tumor, pulmonary hypertension, seizure disorder. Feels better than yesterday today. Awaiting to be seen by orthopedic surgery. Continue inhaled bronchodilator, gastric prophylaxis, deep vein thrombosis prophylaxis. We will get physical therapy. Thank you and we will follow with you. Carol Zuñiga MD
[2018-11-05 15:50] LABS: IRON 25 ug/dL (45-180)
[2018-11-05 15:59] LABS: % IRON SATURATION 11 % (20-55); TOTAL IRON BINDING CAPACITY 233 ug/dL (265-497)
--- NOTE | 2018-11-05 16:30 | CT ---
Date of service: 11/05/2018 PROCEDURE: CT HEAD WITHOUT CONTRAST. HISTORY: weakness COMPARISON: Noncontrast head CT performed 03/28/18 TECHNIQUE: Axial computed tomography images were obtained through the head/brain without intravenous contrast. Radiation dose: Total exam DLP = 795.79 mGy-cm. This CT exam was performed using one or more of the following dose reduction techniques: Automated exposure control, adjustment of the mA and/or kV according to patient size, and/or use of iterative reconstruction technique. FINDINGS: HEMORRHAGE: No intracranial hemorrhage. BRAIN: Diffuse atrophy with prominence of the ventricles and sulci noted. No mass effect or edema. Intracranial atherosclerosis. Scattered periventricular and subcortical white matter hypodensities, which are nonspecific, but often seen with chronic microvascular ischemic disease. Please note that MRI with diffusion imaging is more sensitive in the detection of acute ischemic event. VENTRICLES: No hydrocephalus. CALVARIUM: Unremarkable. PARANASAL SINUSES: Unremarkable as visualized. No significant inflammatory changes. MASTOID AIR CELLS: Unremarkable as visualized. No inflammatory changes. OTHER FINDINGS: Chronic deformity of the left TMJ. IMPRESSION: Generalized atrophy. Nonspecific white matter changes.
--- NOTE | 2018-11-05 18:54 | CARD ---
APPROVED REPORT Date of service: 11/04/2018 EKG Measurement Heart [id number] <Conclusion> Sinus tachycardia Right atrial enlargement Left axis deviation Nonspecific ST and T wave abnormality Abnormal ECG
[2018-11-05 21:18] LABS: FOLATE 11.4 ng/mL
[2018-11-06] MEDS: Budesonide 0.5 mg/2 ml Inhal Susp UD IH SCH ×2 (07:49→20:07)
[2018-11-06] MEDS: Arformoterol 15 mcg/2 ml Inh Sol IH SCH ×2 (07:49→20:07)
--- NOTE | 2018-11-06 08:55 | PN ---
DATE: 11/05/2018 SUBJECTIVE: The patient is a 68-year-old female. The patient was seen and examined at the bedside on 11/05/2018, looking comfortable. No fever. No chills. No hematuria or hematochezia. No headache or dizziness. Appetite is appropriate. PHYSICAL EXAMINATION: VITAL SIGNS: Temperature 98, heart rate 90, respiratory rate 19, blood pressure 125/80, pulse oximetry 98% on 2 L of nasal cannula. HEENT: Normocephalic and atraumatic. Eyes, PERRLA. Extraocular muscles are intact. Conjunctivae clear. Nose patent. Mucous membranes moist. NECK: Supple. No carotid bruit. No JVD or thyromegaly. LUNGS: Has fair airflow with prolonged expiratory phase. HEART: S1 and S2 are positive. ABDOMEN: Soft and nontender. No masses. EXTREMITIES: No edema. No cyanosis. Still has left hip discomfort. NEUROLOGIC: Awake and alert. Follows simple commands. MEDICATIONS: Brovana, vitamin D, Lamictal, Lidoderm, Lovenox, Nicoderm patch, Pulmicort, Tegretol. LABORATORY DATA: Hemoglobin 11.6, hematocrit 35.9, white blood cell 11.1, platelets 389. Sodium 135, potassium 2.9, BUN 90, creatinine 0.7, glucose 99. TSH is 0.73. ASSESSMENT AND PLAN: The patient is a 68-year-old female, status post fall with fracture of the hip, ruled out chronic lung disease, lung cancer, status post thoracotomy and resection of the tumor, pulmonary hypertension, seizure disorder. Waiting to be orthopedic. CAT scan of the head ordered. Gastric prophylaxis. Repeat labs. Gastrointestinal and deep venous thrombosis prophylaxis. We will follow up. Carley Luciano MD MTDD
[2018-11-06] MEDS: Enoxaparin 40 mg Syringe SC SCH (10:15)
[2018-11-06] MEDS: Lidocaine 5% Patch TD SCH (10:16)
--- NOTE | 2018-11-06 12:25 | PN ---
PULMONARY PROGRESS NOTE DATE: 11/06/2018 REFERRING PHYSICIAN: Carley Luciano MD SUBJECTIVE: The patient is sitting up in bed in no acute distress. Reports does have occasional cough. Denies shortness of breath. No headache, rhinitis, chest pain, abdominal pain, nausea, vomiting, diarrhea, leg pain or leg swelling reported. The patient does report improvement in right hip pain. OBJECTIVE: GENERAL: No acute distress. VITAL SIGNS: Blood pressure 112/68, pulse 87, temperature 97.9 and oxygen saturation 96% on room air. HEENT: Moist mucous membrane. Crowded airway. NECK: Supple. No JVD. LUNGS: Fair airflow bilaterally. CARDIOVASCULAR: S1 and S2 audible. ABDOMEN: Soft, nontender and no distention. No organomegaly. EXTREMITIES: No bilateral lower extremity edema. Left hip discomfort noted on palpation. NEUROLOGIC: Awake, alert and verbal. Follows simple commands. LABORATORY DATA: Reviewed. No new labs since yesterday. DIAGNOSTIC DATA: Hip CT report pending. MEDICATIONS: Reviewed. Brovana 15 mcg inhalation every 12 hours, Pulmicort, 0.5 mg inhalation every 12 hours, Tegretol 200 mg three times a day, Lovenox 40 mg subcutaneous daily, ergocalciferol 50,000 units weekly, Pepcid 40 mg at bedtime, Lamictal 200 mg twice a day, Lidoderm topically daily to the affected area, and nicotine patch daily. IMPRESSION AND PLAN: Status post fall fracture of the hip pending to be ruled out, chronic obstructive lung disease, lung cancer status post thoracotomy, resection of the tumor, pulmonary hypertension, seizure disorder. The patient to have follow up with orthopedic surgeon. Continue inhale bronchodilators, gastric prophylaxis and deep venous thrombosis prophylaxis. Recommend physical therapy for this patient. This patient was seen and examined with Dr. Zuñiga. Discussed assessment and plan as described above. Thank you for this consult and we will follow with you. Chidi Wilhelm APN Carol Zuñiga MD [facility]
--- NOTE | 2018-11-06 14:32 | CT ---
Date of service: 11/04/2018 PROCEDURE: HISTORY: fall,injury COMPARISON: TECHNIQUE: FINDINGS: Status post ORIF of a femoral neck fracture with fixation pin entering the femoral neck and head as well as a intramedullary cisco in the proximal femoral shaft. Scattered ossified foci surrounding the joint compatible with myositis ossificans or old fragments. No evidence of acute fracture. IMPRESSION: As above.
--- NOTE | 2018-11-06 18:14 | CT ---
Date of service: 11/06/2018 PROCEDURE: CT Pelvis without contrast HISTORY: right Rami fracture COMPARISON: None available. TECHNIQUE: Contiguous axial images of the pelvis . No intravenous or oral contrast given. Coronal and sagittal reformats generated. Radiation dose: Total exam DLP = 209.31 mGy-cm. This CT exam was performed using one or more of the following dose reduction techniques: Automated exposure control, adjustment of the mA and/or kV according to patient size, and/or use of iterative reconstruction technique. FINDINGS: BLADDER: Unremarkable. No mass. REPRODUCTIVE ORGANS: Unremarkable. VISUALIZED BOWEL: Constipation PERITONEUM: Unremarkable, as visualized. No free fluid. No free air. LYMPH NODES: Unremarkable. No enlarged lymph nodes. BONES: There is a minimally displaced fracture of the right superior pubic ramus at the junction with the symphysis pubis. The fracture involves the posterior cortex. There is heterotopic bone around the right hip. There is a compression screw and cisco in the right hip. VASCULATURE: No aortic atherosclerotic calcification or mural plaque present. OTHER FINDINGS: None. IMPRESSION: There is a minimally displaced fracture of the right superior pubic ramus at the junction with the symphysis pubis. The fracture involves the posterior cortex
[2018-11-07] MEDS ORDERED: HYDROmorphone 0.5 mg/0.5 ml ISec IVP PRN (00:42)
[2018-11-07] MEDS: Budesonide 0.5 mg/2 ml Inhal Susp UD IH SCH (07:19)
[2018-11-07] MEDS: Arformoterol 15 mcg/2 ml Inh Sol IH SCH (07:19)
[2018-11-07 08:19] VITALS: PULSE 90
--- NOTE | 2018-11-07 09:10 | PN ---
DATE: 11/06/2018 SUBJECTIVE: The patient is a 68-year-old female. The patient was seen and examined at the bedside, looking comfortable. Complaining about pain, Tylenol given. Cough and shortness of breath is better. No fever. No chills. PHYSICAL EXAMINATION: VITAL SIGNS: Blood pressure 110/60, pulse 87, temperature 97.9, and respiratory rate 18. HEENT: Head is normocephalic and atraumatic. Eyes; PERRLA. Extraocular muscles intact. Conjunctivae clear. Nose patent. Mucous membrane moist. NECK: Supple. No carotid bruit, JVD or thyromegaly. CHEST: Bilaterally symmetrical. HEART: S1 and S2 positive. LUNGS: Clear to auscultation. ABDOMEN: Soft. Bowel sounds present. No organomegaly. EXTREMITIES: Bilateral lower extremity edema. Right hip discomfort on palpation. NEUROLOGIC: The patient is awake and alert. Follows simple commands. LABORATORY DATA: We do not have recent labs today, but I reviewed old labs. MEDICATIONS: Brovana, Pulmicort, Tegretol, Lovenox, vitamin D, Pepcid, Lamictal, Lidoderm, and nicotine patch. ASSESSMENT AND PLAN: a 68-year-old lady status post fall, fracture of the hip, chronic obstructive lung disease, lung cancer, status post thrombectomy, status post thoracotomy, resection of the tumor, pulmonary hypertension, seizure disorder, very well controlled. CAT scan of the pelvis reviewed by me. Dr. Onur Titus, there is a minimally displaced fracture of the right superior pubic ramus at the junction with the symphysis pubis , fracture involves the posterior cortex. Have fractures of the ribs 8 and 9. Orthopedics is on the case, out of bed, physical therapy, gastrointestinal and deep venous thrombosis prophylaxes, repeat labs, and we will follow up. Carley Luciano MD MTDLena
[2018-11-07] MEDS: Lidocaine 5% Patch TD SCH (10:16)
[2018-11-07] MEDS: Enoxaparin 40 mg Syringe SC SCH (10:17)
--- NOTE | 2018-11-07 12:34 | PN ---
PULMONARY PROGRESS NOTE DATE: 11/07/2018 REFERRING PHYSICIAN: Carley Luciano MD SUBJECTIVE: The patient is sitting up in bed, in no acute distress. Reports pain to pelvic area only when turning. No headache, rhinitis, chest pain, cough, shortness of breath, abdominal pain, nausea, vomiting, diarrhea, leg pain or leg swelling reported OBJECTIVE: GENERAL: No acute distress. VITAL SIGNS: Blood pressure 120/75, pulse 90, temperature 97.6 and oxygen saturation 92% on room air. HEENT: Moist mucous membranes. Crowded airway. NECK: Supple. No JVD. LUNGS: Fair airflow bilaterally. CARDIOVASCULAR: S1 and S2 audible. ABDOMEN: Soft and nontender. No distention. No organomegaly. EXTREMITIES: No bilateral lower extremity edema. NEUROLOGIC: Awake, alert and verbal. Follows simple commands. MEDICATIONS: Reviewed. Tylenol 650 mg every 4 hours p.r.n. for moderate pain, Brovana 15 mcg every 12 hours, Pulmicort 0.5 mg inhalation every 12 hours, Tegretol 200 mg three times a day, Lovenox 40 mg subcutaneous daily, ergocalciferol 50,000 units every 7 days, Pepcid 40 mg at bedtime, Dilaudid 0.25 IV push every 4 hours p.r.n., Lamictal 200 mg twice a day, Lidoderm one transdermal daily to the affected area, and nicotine patch daily. LABORATORY DATA: Reviewed. No new labs. DIAGNOSTIC DATA: Pelvic CT shows minimally displaced fracture of the right superior pubic ramus at the junction with the symphysis pubis, the fracture involves the posterior cortex. IMPRESSION AND PLAN: Status post fall, fracture of right pubic ramus. The patient also has fracture of right 8 and 9th ribs, chronic obstructive lung disease, lung cancer status post thoracotomy, resection of the tumor, pulmonary hypertension, seizure disorder. The patient being followed by Orthopedic. Pulmonary point of view, continue inhaled bronchodilators, gastric prophylaxis and deep venous thrombosis prophylaxis. We believe the patient may benefit from TRCU, physical therapy, pain management. This patient was seen and examined with Dr. Zuñiga. Discussed assessment and plan as described above. Thank you for this consult and we will follow with you. Chidi Wilhelm APN Carol Zuñiga MD [facility] # [id number]
[2018-11-07 14:54] VITALS: BP 124/69; RESP 18; TEMP 98.6; O2SAT 97
[2018-11-07] MEDS ORDERED: Pneumococcal 23-Valent Vaccine IM ONE (15:13)
--- NOTE | 2018-11-07 19:25 | CON ---
DATE: 11/07/2018 INPATIENT CONSULT REASON FOR CONSULTATION: Status post fall with right pelvic pain. HISTORY OF PRESENT ILLNESS: This is a 68-year-old female, who presented status post mechanical fall with complaints of right hip and pelvic pain. PAST MEDICAL HISTORY: Significant for lung CA, previous right hip fracture with intramedullary nailing of right hip fracture. The patient says she has some pain with weightbearing on the right side. She denies any other injuries. She denies any numbness or tingling going down the legs. She denies any weakness. She denies any change in her bowel or bladder patterns. PHYSICAL EXAMINATION: GENERAL: This is a female, in no apparent distress. She is awake, alert, oriented x3. NEUROLOGIC: She is neurologically intact in bilateral lower extremities. She has palpable distal pulses bilaterally. She is able to do a straight leg raise on the right on both sides. She has no pain with passive internal or external rotation on either hip. She does have some anterior right-sided pelvic tenderness in the area just lateral to her pubic symphysis. No gross crepitus is appreciated. No significant tenderness over the sacrum is appreciated. She is not tender over the lumbar spine. Her thigh and calf are soft and nontender. DIAGNOSTIC DATA: X-rays of the right hip and CAT scan show that she is status post ORIF of her right hip with an intramedullary nail. She does looks like an acute superior right pubic rami fracture. No obvious sacral fractures appreciated. IMPRESSION: Right rami fracture. PLAN: At this point, recommendations would be for progressive mobilization with followup x-rays. Most likely, she would benefit from a subacute rehab for now. We recommend to achieve weightbearing as tolerated with a walker. We will followup while she is in the hospital. Dov Weinberg MD
== END 2018-11-07 17:02 | DRG 536 ==
LOC: ED 09:18 → ERH 15:43 → 5RSO 18:57
PROVIDERS: ADMIT Internal Medicine; ATTEND Internal Medicine
DX: S32.591A Other specified fracture of right pubis, initial encounter for closed fracture (principal); S22.41XA Multiple fractures of ribs, right side, initial encounter for closed fracture; J44.9 Chronic obstructive pulmonary disease, unspecified; G40.909 Epilepsy, unspecified, not intractable, without status epilepticus; F17.200 Nicotine dependence, unspecified, uncomplicated; I27.20 Pulmonary hypertension, unspecified; R73.9 Hyperglycemia, unspecified; R94.5 Abnormal results of liver function studies; D72.829 Elevated white blood cell count, unspecified; W19.XXXA Unspecified fall, initial encounter; Z91.81 History of falling; Z85.118 Personal history of other malignant neoplasm of bronchus and lung

== ENCOUNTER 2018-11-07 16:45 | Inpatient (IN) | payer OTHER, BC ==
[2018-11-07] MEDS ORDERED: HYDROmorphone 0.5 mg/0.5 ml ISec IVP PRN (17:44)
[2018-11-07] MEDS ORDERED: Arformoterol 15 mcg/2 ml Inh Sol IH SCH (20:00)
[2018-11-08] MEDS: Enoxaparin 40 mg Syringe SC SCH (05:50)
[2018-11-08 07:14] LABS: HEMOGLOBIN 9.7 g/dL (12.0-16.0); MEAN CELL VOLUME 90.1 fl (80.0-105.0); MEAN CORPUSCULAR HEMOGLOBIN 28.4 pg (25.0-35.0); MEAN CORPUSCULAR HGB CONC 31.5 g/dl (31.0-37.0); MEAN PLATELET VOLUME 8.6 fl (7.0-11.0); RBC 3.42 10^6/uL (3.5-6.1); RED CELL DISTRIBUTION WIDTH 13.2 % (11.5-14.5); WHITE BLOOD COUNT 6.9 10^3/uL (4.5-11.0)
[2018-11-08 07:40] LABS: BLOOD UREA NITROGEN 19 mg/dL (7-21); GFR NON-AFRICAN AMERICAN > 60
[2018-11-08 07:41] LABS: CALCIUM 8.8 mg/dL (8.4-10.5)
[2018-11-08] MEDS: Arformoterol 15 mcg/2 ml Inh Sol IH SCH (07:43)
[2018-11-08] MEDS: Budesonide 0.5 mg/2 ml Inhal Susp UD IH SCH (07:43)
[2018-11-08] MEDS: Lidocaine 5% Patch TD SCH (09:36)
--- NOTE | 2018-11-08 12:36 | CON ---
DATE: 11/08/2018 PULMONARY CONSULT NOTE REFERRING PHYSICIAN: Dr. Carley Luciano. REASON FOR CONSULT: Chronic lung disease, history of lung cancer, status post fall, pelvic fracture. HISTORY OF PRESENT ILLNESS: This is a 68-year-old female known to us from previous admissions and in the office. The patient has past medical history of seizure disorder, history of multiple falls, history of left humerus fracture requiring surgery, history of hip fracture in the past, thoracotomy with cancer removal from the left lung. This past admission to the hospital, the patient came in because she tripped and had a fall at home. Pelvis CT showed minimally displaced fracture of the right superior pubic ramus at the junction with the symphysis pubis, fracture involves the posterior cortex. The patient also has right rib fracture of 8th and 9th ribs. Today, the patient reports that pain is better and reports only having occasional cough, denies shortness of breath. PAST MEDICAL HISTORY: As per history of present illness. FAMILY HISTORY: No significant cardiopulmonary disease reported. SOCIAL HISTORY: The patient is an active smoker. Denies any alcohol use or any illicit drug use. MEDICATIONS: Tylenol 650 mg every 6 hours p.r.n., Brovana 15 mcg every 12 hours, Pulmicort 0.5 mg inhalation every 12 hours, Tegretol 200 mg three times a day, Lovenox 40 mg subcutaneous daily, ergocalciferol 50,000 units weekly, Pepcid 20 mg at bedtime, Dilaudid 0.25 IV push every 4 hours p.r.n., Lamictal 200 mg twice a day, Lidoderm topically to affected area daily and nicotine patch daily. ALLERGIES: NO KNOWN ALLERGIES. REVIEW OF SYSTEMS: No headache, rhinitis, shortness of breath, chest pain, abdominal pain, nausea, vomiting, diarrhea, leg pain or leg swelling reported. The patient does report pelvic and hip pain has improved. Reports minimal occasional cough. PHYSICAL EXAMINATION: GENERAL: No acute distress. VITAL SIGNS: Blood pressure 126/64, pulse 99, temperature 98.5 and oxygen saturation 97% on room air. HEENT: Moist mucous membranes. Small oral cavity. NECK: Supple. No JVD. LUNGS: Poor airflow at the bases. CARDIOVASCULAR: S1 and S2 audible. ABDOMEN: Soft, nontender. No distention. No organomegaly. EXTREMITIES: No bilateral lower extremity edema. NEUROLOGIC: Awake, alert, verbose. Follows commands. LABORATORY DATA: Reviewed. WBC 6.9, RBC 3.42, hemoglobin 9.7, hematocrit 30.8 and platelets 363. Sodium 136, potassium 4.6, chloride 103, carbon dioxide 31, anion gap 6, BUN 19, creatinine 0.6, GFR greater than 60, random glucose 94, calcium 8.8. IMPRESSION AND PLAN: Status post fall, pubic fracture, right 8th and 9th rib fracture, chronic obstructive lung disease, lung cancer status post thoracotomy, pulmonary hypertension and seizure disorder. Continue inhaled bronchodilators, gastric prophylaxis and deep venous thrombosis prophylaxis. Will order CT scan of chest to follow up on l;eugene cancer resection. Continue physical therapy, pain management. This patient was seen and examined with Dr. Zuñiga. Discussed assessment and plan as described above. Thank you for this consult. We will follow with you. Chidi Wilhelm APN Carol Zuñiga MD [facility]
--- NOTE | 2018-11-09 02:46 | HP ---
DATE OF EXAM: 11/08/2018 The patient is a 68-year-old female. The patient was seen and examined at the bedside on 11/08/2018. CHIEF COMPLAINT: Fall, hip pain, and fatigue. HISTORY OF PRESENT ILLNESS: Ms. Leann Helm is a 68-year-old female, my private patient, has history of seizures, very well controlled, multiple falls, left humerus fracture requiring surgery, history of hip fracture in the past, thoracotomy with cancer removal from the left lung, got admission on the medical floor with another fall, with 2 rib fractures 8 and 9 with minimal displacement, right shoulder pain and pubic ramus at the junction with the symphysis pubis fracture, fracture involving the posterior cortex. The patient reports only having occasional cough. Denies fever or chills. No hematuria. No hematochezia. No headache. No dizziness. PAST MEDICAL HISTORY: As above with history of lung cancer status post thoracotomy, history of seizure, stable, history of shoulder fracture after procedure. FAMILY HISTORY: Father and mother noncontributory. HABITS: Still smoking, but less. No alcohol. No substance abuse. MEDICATIONS: Tylenol, Brovana, Pulmicort, Lovenox, vitamin D, Pepcid, Dilaudid, Lamictal, and Lidoderm patch. ALLERGIES: THE PATIENT IS NOT ALLERGIC WITH ANY MEDICATIONS. REVIEW OF SYSTEMS: The patient was seen and examined at the bedside in her room. Cough is better. Shortness of breath is better. She do not have any chest pain and pelvic pain is also getting pain medication. Getting physical therapy. PHYSICAL EXAMINATION VITAL SIGNS: Blood pressure is 122/64, pulse 99, temperature 98.5, oxygen 97% on room air. HEENT: Head; normocephalic and atraumatic. Eyes; PERRLA. Extraocular muscles intact. Conjunctivae clear. Nose patent. Mucous membranes are moist. NECK: Supple. No carotid bruit. No JVD or thyromegaly. CHEST: Bilaterally symmetrical. HEART: S1 and S2 positive. LUNGS: Clear to auscultation. ABDOMEN: Soft. Bowel sounds positive. No organomegaly. EXTREMITIES: No edema. No cyanosis. NEUROLOGIC: The patient is awake and alert. Follow simple commands. LABORATORY DATA: White blood cells 6.9, hemoglobin 9.7, hematocrit 30.8 and platelets 363. Sodium 136, potassium 4.6, BUN 19, creatinine 0.6, glucose 94 and calcium 8.8. ASSESSMENT AND PLAN: Ms. Leann Helm is my private patient with multiple medical problem, history of seizures, stable, status post fall, pubic fracture, right 8th and 9th rib fracture, chronic obstructive pulmonary disease, lung cancer status post thoracotomy in the left side, and pulmonary hypertension. PLAN: Continue inhaled bronchodilators, gastric and deep venous thrombosis prophylaxis. Urge to quit completely smoking. CAT scan of the chest was done. Getting physical therapy, pain management. Appreciated Dr. Zuñiga's input. Dr. Weinberg's input. CAT scan of the chest is done. Results are pending. Repeat labs. We will follow up. Carley Luciano MD [facility]
[2018-11-09] MEDS: Enoxaparin 40 mg Syringe SC SCH (05:37)
[2018-11-09] MEDS: Budesonide 0.5 mg/2 ml Inhal Susp UD IH SCH ×2 (07:18→20:35)
[2018-11-09] MEDS: Arformoterol 15 mcg/2 ml Inh Sol IH SCH ×2 (07:18→20:35)
[2018-11-09] MEDS: Lidocaine 5% Patch TD SCH (09:50)
--- NOTE | 2018-11-09 10:24 | CT ---
Date of service: 11/08/2018 PROCEDURE: CT Chest without contrast HISTORY: lung cancer resection follow up COMPARISON: 08/09/2018 TECHNIQUE: Contiguous axial images were obtained through the chest without intravenous contrast enhancement. Sagittal and coronal reconstructions were performed. Radiation dose: Total exam DLP = 173.64 mGy-cm. This CT exam was performed using one or more of the following dose reduction techniques: Automated exposure control, adjustment of the mA and/or kV according to patient size, and/or use of iterative reconstruction technique. FINDINGS: LUNGS: Severe centrilobular emphysema with a new pleural-based soft tissue density mass in the right lower lobe measuring roughly 3.0 Centimeters. Postsurgical architectural distortion noted in the left lower lobe with accompanying fibrosis and/or atelectasis in the left lower lobe, unchanged from prior exam. MEDIASTINUM: Unremarkable thoracic aorta. No aneurysm. Normal sized heart. Main pulmonary artery unremarkable. No vascular congestion. No lymphadenopathy. No aortic atherosclerotic calcification. PLEURA: No pleural fluid. No pneumothorax. BONES: No fracture. No destructive lesion. UPPER ABDOMEN: Grossly unremarkable. OTHER FINDINGS: None. IMPRESSION: Severe centrilobular emphysema with a new pleural-based soft tissue density mass in the right lower lobe measuring roughly 3.0 Centimeters. Postsurgical architectural distortion noted in the left lower lobe with accompanying fibrosis and/or atelectasis in the left lower lobe, unchanged from prior exam.
--- NOTE | 2018-11-09 14:43 | PN ---
PULMONARY PROGRESS NOTE DATE: 11/09/2018 REFERRING PHYSICIAN: Dr. Carley Luciano. SUBJECTIVE: The patient is sitting up in bed, in no acute distress. Reports occasional cough. No overnight events reported. No headache, rhinitis, chest pain, shortness of breath, abdominal pain, nausea, vomiting, diarrhea, leg pain, or leg swelling reported. OBJECTIVE: GENERAL: No acute distress. VITAL SIGNS: Blood pressure 114/64, pulse 84, temperature 98.1, and oxygen saturation 96%. HEENT: Moist mucous membranes. Small oral cavity. NECK: Supple. No JVD. LUNGS: Poor airflow at bases. CARDIOVASCULAR: S1 and S2 audible. ABDOMEN: Soft and nontender. No distention. No organomegaly. EXTREMITIES: No bilateral lower extremity edema. NEUROLOGIC: Awake, alert, and verbal. Follows commands. MEDICATIONS: Reviewed. Tylenol 650 mg every 6 hours p.r.n., Brovana 15 mcg every 12 hours, Pulmicort 0.5 mg inhalation every 12 hours, Tegretol 200 mg three times a day, Lovenox 40 mg daily, ergocalciferol 50,000 units every 7 days, Pepcid 20 mg at bedtime, Dilaudid 0.25 mg IV push every 4 hours p.r.n., Lamictal 200 mg twice a day, Lidoderm patch topically to affected area and nicotine patch topically daily. LABORATORY DATA: Reviewed. No new labs. DIAGNOSTIC DATA: Chest CT shows severe centrilobular emphysema with a new pleural base soft tissue density mass in the right lower lobe measuring roughly 3.0 cm, post surgical architectural distortion noted in the left lower lobe with accompanying fibrosis and/or atelectasis in the left lower lobe, unchanged from prior exam. IMPRESSION AND PLAN: Status post fall; pubic fracture; right 8th and 9th rib fracture; chronic obstructive lung disease; lung cancer, left lung status post thoracotomy; pulmonary hypertension and seizure disorder. Due to new findings on chest CT, the patient will need to have biopsy of mass to right lobe. The patient has the history of lung cancer in the left lung, need to determine if mass in right lung is new cancer lesion or metastatic. We will follow up with the patient regarding who her oncologist is. Continue inhaled bronchodilators, gastric prophylaxis, and deep venous thrombosis prophylaxis. Continue physical therapy and pain management. Continue to encourage the patient to stop smoking. This patient was seen and examined with Dr. Zuñiga. Discussed assessment and plan as described above. Thank you for this consult. We will follow with you. Chidi Wilhelm APN Carol Zuñiga MD [facility]
--- NOTE | 2018-11-10 04:21 | PN ---
DATE: 11/09/2018 SUBJECTIVE: The patient was seen and examined at bedside on 11/09/2018, looking comfortable, got physical therapy; having pain in the hip, but not in the ribs. Does not look like in acute distress. No cough. No runny nose. No overnight event happened. No fevers. No chills. No hematuria or hematochezia. PHYSICAL EXAMINATION: VITAL SIGNS: Blood pressure 114/64, pulse 84, temperature 98.1, oxygen saturation 96%. HEENT: Head is normocephalic and atraumatic. Eyes PERRLA. Extraocular movements intact. Conjunctivae clear. Nose patent. Mucous membranes moist. NECK: Supple. No carotid bruit. No JVD or thyromegaly. CHEST: Bilaterally symmetrical. LUNGS: Poor airflow at the bases. HEART: S1 and S2 positive. ABDOMEN: Soft and nontender. No organomegaly. EXTREMITIES: Bilateral extremities, no edema. NEUROLOGIC: Awake, alert, follows simple commands, oriented x3. MEDICATIONS: Tylenol, Brovana, Pulmicort, Tegretol, Lovenox, vitamin D, Pepcid, Dilaudid, Lamictal, Lidoderm patch. LABORATORY DATA: We do not have recent labs today, but reviewed old labs. ASSESSMENT AND PLAN: Ms. Volodymyr Noriega is a 68 years old female, status post fall; pubic fracture, right 8th and 9th rib fracture; chronic obstructive lung disease; lung cancer, left lung status post thrombectomy; pulmonary hypertension; seizure disorder. Reviewed findings on the chest CAT scan. The patient will need a biopsy of the mass of the right lobe. History of lung cancer of the left lung. We will put consult with Dr. Homero Barton. Gastrointestinal and deep venous thrombosis prophylaxes. Physical therapy. We will follow up. Carley Luciano MD
[2018-11-10] MEDS: Enoxaparin 40 mg Syringe SC SCH (05:23)
[2018-11-10] MEDS: Budesonide 0.5 mg/2 ml Inhal Susp UD IH SCH ×2 (08:05→20:50)
[2018-11-10] MEDS: Arformoterol 15 mcg/2 ml Inh Sol IH SCH ×2 (08:05→20:49)
[2018-11-10] MEDS: Lidocaine 5% Patch TD SCH (09:56)
--- NOTE | 2018-11-10 13:30 | PN ---
DATE: 11/10/2018 PULMONARY PROGRESS NOTE REFERRING PHYSICIAN: Carley Luciano MD SUBJECTIVE: The patient is sitting up in armchair in room, no acute distress, reports occasional cough. No headache, rhinitis, chest pain, shortness of breath, abdominal pain, nausea, vomiting, diarrhea, leg pain or leg swelling reported. OBJECTIVE: GENERAL: No acute distress. VITAL SIGNS: Blood pressure 131/63, pulse 93, temperature 98.4, oxygen saturation 91%. HEENT: Moist mucous membranes. Small oral cavity. NECK: Supple. No JVD. LUNGS: Poor airflow at the bases. CARDIOVASCULAR: S1, S2 audible. ABDOMEN: Soft, nontender. No distension. No organomegaly. EXTREMITIES: No bilateral lower extremity edema. NEUROLOGIC: Awake, alert, verbal, follows commands. MEDICATIONS: Reviewed. Tylenol 650 mg every 4 hours p.r.n. Brovana 15 mcg every 12 hours, Pulmicort 0.5 mg every 12 hours, Tegretol 200 mg 3 times a day, Lovenox 40 mg daily, Drisdol 1 cap every 7 days, Pepcid 20 mg at bedtime, Dilaudid 0.25 mg IV push every 4 hours p.r.n., Lamictal 200 mg twice a day, Lidoderm patch 1 topically each day daily, nicotine 1 patch topically daily. LABORATORY DATA: Reviewed. No new labs. IMPRESSION AND PLAN: Status post fall, pubic fracture, right 8th and 9th rib fracture, chronic obstructive lung disease, lung cancer, left lung status post thoracotomy, pulmonary hypertension, seizure disorder. The patient with new mass to right lung. Discussed in depth with the patient regarding new right lung mass. The patient reports that she would like to have lung mass biopsied. Dr. Homero Barton is already consulted. The patient reports that her oncologist is Dr. Piper, we will consult oncologist. Continue inhaled bronchodilators, gastric prophylaxis, deep venous thrombosis prophylaxis. Continue physical therapy, pain management. Continue to encourage the patient to stop smoking. This patient was seen and examined with Dr. Zuñiga. Discussed assessment and plan as described above. Thank you for this consult. We will follow with you. Chidi Prudence, INSULATION MACHINE OPERATOR Carol Zuñiga MD [facility]
--- NOTE | 2018-11-10 23:21 | CP.PCM.CON ---
History of Present Illness - History of Present Illness History of Present Illness: Ms. Helm is a 68 year old female well known to me from office. 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 There was a 11 mm lesion in left lower lobe. Biopsy was consistent with sq . cell cancer. She had a lesion in right lower lobe at 6 th rib on PET scan. It was biopsied . 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 She history of rib trauma on right side. She underwent robotic resection of left lower lobe lesion at [facility] by Dr. Mobley. CT chest done in Jul 2018 was negative for any suspicious lesion. CT chest done now showed right lower lobe peural based mass around 3 cm not seen previously. She is admitted with fall and pelvic fracture. Review of Systems - Constitutional Constitutional: Anorexia - EENT Eyes: absent: As Per HPI, Blind Spots, Blurred Vision, Change in Vision, Decreased Night Vision, Diplopia, Discharge, Dry Eye, Exophthalmos, Floaters, Irritation, Itchy Eyes, Loss of Peripheral Vision, Pain, Photophobia, Requires Corrective Lenses, Sees Flashes, Spots in Vision, Tunnel Vision, Other Visual Disturbances, Loss of Vision, Other Ears: absent: As Per HPI, Decreased Hearing, Ear Discharge, Ear Pain, Tinnitus, Abnormal Hearing, Disequilibrium, Dizziness, Other Nose/Mouth/Throat: absent: As Per HPI, Epistaxis, Nasal Congestion, Nasal Discharge, Nasal Obstruction, Nasal Trauma, Nose Pain, Post Nasal Drip, Sinus Pain, Sinus Pressure, Bleeding Gums, Change in Voice, Dental Pain, Dry Mouth, Dysphagia, Halitosis, Hoarsness, Lip Swelling, Mouth Lesions, Mouth Pain, Odynophagia, Sore Throat, Throat Swelling, Tongue Swelling, Facial Pain, Neck Pain, Neck Mass, Other - Cardiovascular Cardiovascular: absent: As Per HPI, Acrocyanosis, Chest Pain, Chest Pain at Rest, Chest Pain with Activity, Claudication, Diaphoresis, Dyspnea, Dyspnea on Exertion, Edema, Irregular Heart Rhythm, Pain Radiating to Arm/Neck/Jaw, Leg Edema, Leg Ulcers, Lightheadedness, Orthopnea, Palpitations, Paroxysmal Nocturna l Dyspnea, Pedal Edema, Radiating Pain, Rapid Heart Rate, Slow Heart Rate, Syncope, Other - Respiratory Respiratory: Cough - Gastrointestinal Gastrointestinal: absent: As Per HPI, Abdominal Pain, Belching, Bloating, Change in Bowel Habits, Change in Stool Character, Coffee Ground Emesis, Constipation, Cramping, Diarrhea, Dyspepsia, Dysphagia, Early Satiety, Excessive Flatus, Fecal Incontinence, Heartburn, Hematemesis, Hematochezia, Loose Stools, Melena, Nausea, Odynophagia, Temesmus, Vomiting, Other - Genitourinary Genitourinary: absent: As Per HPI, Change in Urinary Stream, Difficulty Urinating, Dysuria, Flank Pain, Hematuria, Pyuria, Nocturia, Urinary Incontinence, Urinary Frequency, Urinary Hesitance, Urinary Urgency, Voiding Freq/Small Amts, Freq UTI, Hx Renal/Bladder Calculi, Hx /Renal Surgery, Bladder Distension, Other - Menstruation Menstruation: absent: As Per HPI, Amenorrhea, Amenorrhea/ Control, Currently Menstual, Cycle <21 Days, Cycle >35 Days, Cycle Variable, Menses 1-7 Days, Menses >/= 8 Days, Menses Variable, Cycle > 4 Weeks Between, No Menses for 6 Months, Heavy Menses, Light Menses, Normal Menses, Spotting Between Cycles, S/P Hysterectomy, Menopausal, Post Menopausal, Premenarche, Abnormal Vaginal Ble eding, Dysmenorrhea, Other - Musculoskeletal Musculoskeletal: As Per HPI - Integumentary Integumentary: absent: As Per HPI, Acne, Alopecia, Bleeding Lesions, Change in Hair, Change in Nails, Change in Pigmentation, Changing Lesions, Dry Skin, Erythema, Furuncle, Hirsutism, Lesions, New Lesions, Non-Healing Lesions, Photo sensitivity, Pruritus, Rash, Skin Pain, Skin Ulcer, Sores, Striae, Swelling, Unusual Bruising, Wounds, Jaundice, Other - Neurological Neurological: absent: As Per HPI, Abnormal Gait, Abnormal Hearing, Abnormal Movements, Abnormal Speech, Behavioral Changes, Burning Sensations, Confusion, Convulsions, Disequilibrium, Dizziness, Numbness, Focal Weakness, Frequent Falls, Headaches, Lack of Coordination, Loss of Vision, Memory Loss, Paresthesias, Radicular Pain, Restless Legs, Sensory Deficit, Syncope, Tingling, Tremor, Vertigo, Weakness, Other Visual Disturbances, Other - Endocrine Endocrine: absent: As Per HPI, Change in Body Appearance, Change in Libido, Cold Intolorance, Deepening of Voice, Excessive Sweating, Fatigue, Flushing, Heat Intolorance, Increase in Ring/Shoe/Hat Size, Palpitations, Polydipsia, Polypha jay, Polyuria, Other - Hematologic/Lymphatic Hematologic: absent: As Per HPI, Easy Bleeding, Easy Bruising, Lymphadenopathy, Other Past Patient History - Infectious Disease Hx of Infectious Diseases: None - Tetanus Immunizations Tetanus Immunization: Unknown - Past Medical History & Family History Past Medical History?: Yes - Past Social History Smoking Status: Former Smoker - CARDIAC Hx Cardiac Disorders: Yes Hx Hypertension: Yes - PULMONARY Hx Chronic Obstructive Pulmonary Disease (COPD): Yes - NEUROLOGICAL Hx Neurological Disorder: Yes (syncope) Hx Dizziness: Yes Hx Seizures: Yes - HEENT Hx HEENT Problems: No - RENAL Hx Chronic Kidney Disease: No - ENDOCRINE/METABOLIC Hx Endocrine Disorders: No - HEMATOLOGICAL/ONCOLOGICAL Hx Blood Disorders: Yes (blood transfusion) Hx Cancer: Yes (nodule removed no chemo no radiation) Hx Chemotherapy: No - INTEGUMENTARY Hx Dermatological Problems: Yes Other/Comment: dry skin to feet - MUSCULOSKELETAL/RHEUMATOLOGICAL Hx Arthritis: Yes - GASTROINTESTINAL Hx Gastrointestinal Disorders: Yes (POOR APPETITE) - GENITOURINARY/GYNECOLOGICAL Hx Genitourinary Disorders: No Hx Reproductive Disorders: No - PSYCHIATRIC Hx Substance Use: No - SURGICAL HISTORY Hx Surgeries: Yes Other/Comment: R hip surgery, orif left humerus with pins 03/2018, thyroid bx, lung nodule removed - ANESTHESIA Hx Anesthesia Reactions: No Hx Malignant Hyperthermia: No Meds Allergies/Adverse Reactions: Allergies Allergy/AdvReac Type Severity Reaction Status Date / Time No Known Allergies Allergy Verified 11/07/18 18:24 - Medications Medications: Current Medications Acetaminophen (Tylenol 325mg Tab) 650 mg PO Q6H PRN; Protocol PRN Reason: Pain, moderate (4-7) Arformoterol Tartrate (Brovana) 15 mcg IH [id number] SONAL; Protocol Last Admin: 11/10/18 20:49 Dose: 15 mcg Budesonide (Pulmicort Respules) 0.5 mg IH [id number] SONAL; Protocol Last Admin: 11/10/18 20:50 Dose: 0.5 mg Carbamazepine (Tegretol) 200 mg PO 0800,1230,1800 SONAL; Protocol Last Admin: 11/10/18 17:32 Dose: 200 mg Enoxaparin Sodium (Lovenox) 40 mg SC 0600 SONAL; Protocol Last Admin: 11/10/18 05:23 Dose: 40 mg Ergocalciferol (Drisdol 50,000 Intl Units Cap) 1 cap PO Q7D SONAL; Protocol Famotidine (Pepcid) 20 mg PO HS SONAL; Protocol Last Admin: 11/10/18 21:15 Dose: 20 mg Hydromorphone HCl (Dilaudid) 0.25 mg IVP Q4H PRN; Protocol PRN Reason: Pain, severe (8-10) Lamotrigine (Lamictal) 200 mg PO BID SONAL Last Admin: 11/10/18 17:31 Dose: 200 mg Lidocaine (Lidoderm) 1 ea TD DAILY SONAL; Protocol Last Admin: 11/09/18 09:50 Dose: 1 ea Nicotine (Nicoderm Cq) 1 patch TD DAILY SONAL; Protocol Last Admin: 11/10/18 09:57 Dose: 1 patch Physical Exam - Constitutional Appears: Cachectic - Head Exam Head Exam: ATRAUMATIC, NORMAL INSPECTION, NORMOCEPHALIC - Eye Exam Eye Exam: Normal appearance Pupil Exam: NORMAL ACCOMODATION - ENT Exam ENT Exam: Mucous Membranes Moist, Normal Exam - Neck Exam Neck exam: Positive for: Normal Inspection - Respiratory Exam Respiratory Exam: Clear to Auscultation Bilateral, NORMAL BREATHING PATTERN - GI/Abdominal Exam GI & Abdominal Exam: Normal Bowel Sounds - Extremities Exam Extremities exam: Positive for: normal inspection - Back Exam Back exam: NORMAL INSPECTION - Psychiatric Exam Psychiatric exam: Normal Affect - Skin Skin Exam: Normal Color, Warm Results - Vital Signs Recent Vital Signs: Last Vital Signs Temp 98 F 11/10/18 16:00 Pulse 87 11/10/18 16:00 Resp 20 11/10/18 16:00 BP 103/70 11/10/18 16:00 Pulse Ox 90 L 11/10/18 16:00 - Labs Result Diagrams: 11/08/18 06:00 11/08/18 06:00 Assessment & Plan - Assessment and Plan (Free Text) Assessment: 1. Squamus cell lung cancer-left lower lobe. s/p robotic resection in May 2017. Ct scan in Jul 2018 no suspicious lesions identified. CT scan done 2 days ago showed 3 cm pleural based right lower lobe mas. Discussed with the patient at length. Recommend CT guided biopsy of the mass. She agreed with the plan. 2. anemia : work up iron studies, B12, folate levels. 3. pelvic fracture : mgm as per Dr. Luciano. Thank you Dr. Luciano for allowing us to participate in her care. - Date & Time Date: 11/10/18 Time: 18:00
[2018-11-11] MEDS: Enoxaparin 40 mg Syringe SC SCH (05:28)
[2018-11-11 07:12] LABS: HEMOGLOBIN 9.7 g/dL (12.0-16.0); MEAN CELL VOLUME 89.8 fl (80.0-105.0); MEAN CORPUSCULAR HEMOGLOBIN 28.3 pg (25.0-35.0); MEAN CORPUSCULAR HGB CONC 31.5 g/dl (31.0-37.0); MEAN PLATELET VOLUME 8.6 fl (7.0-11.0); RBC 3.43 10^6/uL (3.5-6.1); WHITE BLOOD COUNT 7.4 10^3/uL (4.5-11.0)
[2018-11-11] MEDS: Budesonide 0.5 mg/2 ml Inhal Susp UD IH SCH ×2 (07:27→19:45)
[2018-11-11] MEDS: Arformoterol 15 mcg/2 ml Inh Sol IH SCH ×2 (07:27→19:45)
[2018-11-11 07:42] LABS: BLOOD UREA NITROGEN 27 mg/dL (7-21); GFR NON-AFRICAN AMERICAN > 60
[2018-11-11] MEDS: Lidocaine 5% Patch TD SCH (10:16)
[2018-11-11] MEDS ORDERED: Ergocalciferol 50,000 Intl Units Cap PO SCH (17:45)
[2018-11-11] MEDS: guaiFENesin DM 100 mg-10 mg/5 ml UD PO PRN (21:18)
[2018-11-12] MEDS: Enoxaparin 40 mg Syringe SC SCH (05:31)
[2018-11-12] MEDS: Arformoterol 15 mcg/2 ml Inh Sol IH SCH ×2 (07:29→20:12)
[2018-11-12] MEDS: Budesonide 0.5 mg/2 ml Inhal Susp UD IH SCH ×2 (07:30→20:12)
[2018-11-12] MEDS: Lidocaine 5% Patch TD SCH (10:06)
--- NOTE | 2018-11-12 13:27 | PN ---
DATE: 11/11/2018 SUBJECTIVE: The patient was seen and examined at bedside on 11/11/2018, looking comfortable, rib fracture pain is better, left hip pain is better, last night she has good sleep. No hematuria or hematochezia. No headache or dizziness. Appetite is appropriate. Morals are up. PHYSICAL EXAMINATION: VITAL SIGNS: Blood pressure 130/60, pulse 93, temperature 98.4, and oxygen saturation 91%. HEENT: Head is normocephalic and atraumatic. Eyes, PERRLA. Extraocular movements intact. Conjunctivae clear. Nose patent. Mucous membranes moist. NECK: Supple. No carotid bruit. No JVD or thyromegaly. CHEST: Bilaterally symmetrical. HEART: S1 and S2 positive. LUNGS: Clear to auscultation. ABDOMEN: Soft. Bowel sounds present. No organomegaly. EXTREMITIES: No edema. No cyanosis. NEUROLOGIC: Awake, alert, follows simple commands. MEDICATIONS: Tylenol, Pulmicort, Tegretol, Lovenox, Pepcid, Dilaudid, Lamictal, Lidoderm patch and nicotine. LABORATORY DATA: We do not have recent labs today, but I reviewed old labs. ASSESSMENT AND PLAN: Ms. Leann Helm is 68-year-old female with status post fall, pubic fracture, right 8th and 9th displaced rib fracture, chronic obstructive lung disease, history of heavy smoking, was still actively smoking, history of lung cancer on the left side, status post thoracotomy, pulmonary hypertension, seizure disorder stable, now the patient have new mass of the right lung. Length of time discussion done with the patient, Dr. Zuñiga and Nursing staff regarding new right lung mass. Insomnia, getting Ambien. Anxiety is better. Dr. Homero Barton on the case for lung biopsy. Seen by Dr. Piper Oncologist and Development Administrator. Gastric and deep venous thrombosis prophylaxis. Continue physical therapy, pain management and the patient is moral sport, ready to quit smoking. We will followup. Carley Luciano MD [facility]
--- NOTE | 2018-11-12 17:42 | PN ---
DATE: 11/12/2018 REFERRING PHYSICIAN: Carley Luciano MD SUBJECTIVE: The patient is sitting up at bedside, no acute distress. No overnight events reported. The patient reports cough is much better. No headache, rhinitis, chest pain, shortness of breath, abdominal pain, nausea, vomiting, diarrhea, leg pain or leg swelling reported. OBJECTIVE: VITAL SIGNS: Blood pressure 123/55, pulse 84, temperature 98, oxygen saturation 98%. GENERAL: No acute distress. HEENT: Moist mucous membranes. Small oral cavity. NECK: Supple. No JVD. LUNGS: Poor airflow at the bases. CARDIOVASCULAR: S1, S2 audible. ABDOMEN: Soft, nontender. No distension. No organomegaly. EXTREMITIES: No bilateral lower extremity edema. NEUROLOGIC: Awake, alert, verbal, follows commands. MEDICATIONS: Reviewed. Tylenol 650 mg every 4 hours p.r.n. for moderate pain, Brovana 15 mcg inhalation every 12 hours, Pulmicort 0.5 mg inhalation every 12 hours, Tegretol 200 mg 3 times a day, Lovenox 40 mg subcutaneously daily, ergocalciferol 50,000 units every 7 days, Pepcid 20 mg at bedtime, Robitussin DM 5 mL every 4 hours p.r.n., Dilaudid 0.25 mg IV push every 4 hours p.r.n., Lamictal 200 mg p.o. twice a day, lidocaine patch 1 topically daily to the infected area, nicotine patch daily, Ambien 5 mg p.o. at bedtime as needed. LABORATORY DATA: Reviewed. No new labs since yesterday. IMPRESSION AND PLAN: Status post fall, pubic fracture, right eighth and ninth rib fracture, chronic obstructive lung disease, lung cancer, left lung status post thoracotomy, pulmonary hypertension, seizure disorder, new mass to right lung. The patient is pending consult with Dr. Homero Barton for lung biopsy. Continue gastric and deep venous thrombosis prophylaxis, continue physical therapy, pain management. Continue inhaled bronchodilators. This patient was seen and examined with Dr. Zuñiga. Discussed assessment and plan as described above. Thank you for this consult. We will follow with you. Chidi Prudence, ASSISTANT TO THE CEO Carol Zuñiga MD [facility] # [id number]
[2018-11-12] MEDS: guaiFENesin DM 100 mg-10 mg/5 ml UD PO PRN (21:21)
[2018-11-13] MEDS: Enoxaparin 40 mg Syringe SC SCH (05:24)
[2018-11-13] MEDS: Arformoterol 15 mcg/2 ml Inh Sol IH SCH ×2 (07:28→22:30)
[2018-11-13] MEDS: Budesonide 0.5 mg/2 ml Inhal Susp UD IH SCH ×2 (07:29→22:30)
--- NOTE | 2018-11-13 08:58 | PN ---
DATE: 11/10/2018 SUBJECTIVE: Patient was seen and examined at the bedside on 11/10/2018 looking comfortable. No fever. No chills. No hematemesis. No hematochezia. No swelling of the legs. No chest pain or palpitations. No headache. No dizziness. Complaining about pain in the left hip, did physical therapy, cannot sleep last night, requesting about sleeping medication. PHYSICAL EXAMINATION: VITAL SIGNS: Blood pressure 130/60, pulse oximetry 92, temperature 98.5 degrees, oxygen saturation 91%. HEENT: Head is normocephalic and atraumatic. Eyes PERRLA. Extraocular muscles are intact. Conjunctivae clear. Nose patent. Mucous membranes moist. NECK: Supple. No carotid bruits. No JVD or thyromegaly. CHEST: Bilaterally symmetrical. HEART: S1 and S2 positive. LUNGS: Clear to auscultation. ABDOMEN: Soft. Bowel sounds present. No organomegaly. EXTREMITIES: No edema. No cyanosis. NEUROLOGIC: Patient is awake and alert. Moving all four extremities. No focal deficits. MEDICATIONS: Tylenol, Brovana, Pulmicort, Tegretol, Lovenox, Drisdol, Pepcid, Dilaudid, Lidoderm patch, nicotine. LABORATORY DATA: We do not have recent lab today but I reviewed old labs. ASSESSMENT AND PLAN: The patient is a 68-year-old female, status post fall, pubic fracture right side, right eight and ninth rib displaced fracture, chronic obstructive lung disease, history of lung cancer on the left side, status post thrombectomy, pulmonary hypertension, and seizure disorder. Now, the patient has new mass in the right lung. Dr. Zuñiga has discussion done and myself had discussion done with the patient regarding the right lung mass. The patient reports that she would like to have a lung mass biopsy done. Dr. Homero Barton was consulted, waiting for his input. Dr. Piper's consult appreciated. Continue inhaled bronchodilators. Gastric prophylaxis, deep venous thrombosis prophylaxis. Infectious Disease and Pulmonary are on the case. We will follow up. Carley Luciano MD [facility] # [id number] MTDD
--- NOTE | 2018-11-13 09:17 | PN ---
DATE: 11/11/2018 PULMONARY PROGRESS NOTE REFERRING PHYSICIAN: Dr. Luciano. SUBJECTIVE: He is seen lying in the bed, head at 45 degrees. He has mild cough, doing well in therapy. Right hip pain is better. No nausea. No vomiting. No leg pain or leg swelling. PHYSICAL EXAMINATION: GENERAL: No acute distress. VITAL SIGNS: Temperature is 98, heart rate 87, respiratory rate 20, blood pressure 103/70, pulse ox 90% on room air. HEENT: Moist mucous membranes. NECK: Supple. No JVD. CARDIOPULMONARY: S1 and S2. LUNGS: Have prolonged expiratory phase with some wheezing. ABDOMEN: Soft, nontender. No organomegaly. EXTREMITIES: Right hip has some tenderness. NEUROLOGIC: Awake and follows simple command. LABORATORY DATA: Shows hemoglobin 9.7, hematocrit 30.8, WBC 7.4, platelet count is 457. Sodium 134, potassium 5.2, chloride 98, bicarbonate 32, BUN 27, creatinine 0.6, glucose 91, calcium 9.0. MEDICATIONS: He is on Ambien 5 mg at bedtime p.r.n., Brovana inhaled twice a day, Dilaudid 0.25 mg IV every 4 hours p.r.n., vitamin D 50,000 units every 7 days, Lamictal 200 mg twice a day, lidocaine patch at affected area, Lovenox 40 mg subcutaneously daily, Nicoderm patch daily, Pepcid 20 mg daily, Pulmicort inhaled twice a day, Tegretol 200 mg three times a day, Tylenol p.r.n. basis. IMPRESSION AND PLAN: Status post fall with the pubic fracture, history of right tendon fracture in the past, chronic obstructive lung disease, lung cancer resected, has a wedge resection early this year now and has a right lung mass, history of pulmonary hypertension, seizure disorder. Pulmonary point of view, doing okay. Cough suppressor is being added. Continue bronchodilator. Pain management. Fall precaution. Seen by Oncology, being scheduled for CT-guided lung biopsy. The patient has to stop smoking. We will follow with you. Carol Zuñiga MD [facility] # [id number]
--- NOTE | 2018-11-13 09:34 | PN ---
DATE: 11/12/2018 SUBJECTIVE: Patient is a 68-year-old female. Patient was seen and examined at bedside, on 11/12/2018. Looking comfortable. No fever. No chills. No hematuria. No hematochezia. No swelling of the legs. No chest pain. No palpitations. No headaches. No dizziness. No shortness of breath. PHYSICAL EXAMINATION: VITAL SIGNS: Temperature 98.6, pulse 80, blood pressure 120/55, oxygen saturation 98. HEENT: Head is normocephalic and atraumatic. Eyes PERRLA. Extraocular movements are intact. Conjunctivae clear. Nose patent. NECK: Supple. No carotid bruits. No JVD or thyromegaly. CHEST: Bilaterally symmetrical. HEART: S1 and S2 positive. LUNGS: Clear to auscultation. ABDOMEN: Soft. Bowel sounds present. No organomegaly. EXTREMITIES: No edema. No cyanosis. NEUROLOGIC: Patient is awake and alert. Moving all four extremities. No focal deficits. MEDICATIONS: Tylenol, Brovana, Pulmicort, Tegretol, Lovenox, ergocalciferol, Pepcid, Robitussin, Dilaudid, Lamictal, lidocaine, nicotine patch, Ambien. LABORATORY DATA: We do not have recent lab today, but I reviewed old labs. ASSESSMENT AND PLAN: The patient is a 68-year-old, my private patient, history of heavy smoking. She is still smoking but light. Status post fall, pubic fracture. Right eighth and ninth rib fractures. Chronic obstructive lung disease, lung cancer of the left side, left side status post thoracotomy, pulmonary hypertension, seizure disorder. Now patient had mass on the right lower lung. Patient is waiting for Dr. Homero Barton's input. Dr. Piper, oncologist, is on the case. Interventional Neuroradiologist is on the case, getting aggressive physical therapy. Gastric and deep venous thrombosis prophylaxis. Repeat labs. We will follow up. Carley Luciano MD
[2018-11-13] MEDS: Lidocaine 5% Patch TD SCH (09:48)
--- NOTE | 2018-11-13 13:39 | PN ---
PULMONARY PROGRESS NOTE DATE: 11/13/2018 REFERRING PHYSICIAN: Carley Luciano MD SUBJECTIVE: The patient sitting up in bed, no acute distress. Reports, cough is still present, but has improved. Denies shortness of breath. No headache, rhinitis, chest pain, abdominal pain, nausea, vomiting, diarrhea, leg pain or leg swelling reported. PHYSICAL EXAMINATION GENERAL: No acute distress. VITAL SIGNS: Blood pressure 123/55, pulse 84, temperature 98 and oxygen saturation 90%. HEENT: Moist mucous membranes. NECK: Supple. No JVD. CARDIOVASCULAR: S1 and S2 audible. RESPIRATORY: Prolonged expiratory wheeze. Few rhonchi bilaterally. ABDOMEN: Soft and nontender. No distention. No organomegaly. EXTREMITIES: No bilateral lower extremity edema. NEUROLOGIC: Awake, alert and verbal. Follows commands. LABORATORY DATA: Reviewed. No new labs since yesterday. MEDICATIONS: Reviewed. Tylenol 650 mg every 6 hours p.r.n., Brovana 15 mcg every 12 hours, Pulmicort 0.5 mg inhalation every 12 hours, Tegretol 200 mg 3 times a day, Lovenox 40 mg daily, ergocalciferol 50,000 units every 7 days, Pepcid 20 mg at bedtime, Robitussin 5 mL every 4 hours p.r.n., Dilaudid 0.25 mg every 4 hours p.r.n., Lamictal 200 mg twice a day, Lidoderm patch topically to affected daily, nicotine patch daily and Ambien 5 mg at bedtime p.r.n. IMPRESSION AND PLAN: Status post fall with pubic fracture, chronic obstructive lung disease, lung cancer resected, had wedge resection earlier this year, now has right lung mass, history of pulmonary hypertension, seizure disorder, rib fracture. Pulmonary point of view, the patient pending consult with Dr. Homero Barton for lung biopsy. Continue gastric and deep venous thrombosis prophylaxis, continue physical therapy, pain management and inhaled bronchodilators. This patient was seen and examined with Dr. Zuñiga. Discussed assessment and plan as described above. Thank you for this consult and we will follow with you. Chidi Prudence, MILK AND CREAM GRADER Carol Zuñiga MD [facility] # [id number]
[2018-11-13] MEDS: guaiFENesin DM 100 mg-10 mg/5 ml UD PO PRN (21:22)
[2018-11-14] MEDS: Enoxaparin 40 mg Syringe SC SCH (05:31)
[2018-11-14] MEDS: Arformoterol 15 mcg/2 ml Inh Sol IH SCH ×2 (09:08→20:28)
[2018-11-14] MEDS: Budesonide 0.5 mg/2 ml Inhal Susp UD IH SCH ×2 (09:08→20:29)
[2018-11-14] MEDS: Lidocaine 5% Patch TD SCH (09:38)
--- NOTE | 2018-11-14 20:14 | PN ---
DATE: 11/14/2018 PULMONARY PROGRESS NOTE REFERRING PHYSICIAN: Dr. Luciano. SUBJECTIVE: He is out of bed to chair. Night was unremarkable. Feels better. Decreased right hip pain. No cough or sputum production. No nausea or leg swelling. PHYSICAL EXAMINATION: VITAL SIGNS: Temperature is 98, heart rate 64, respiratory rate is 12, blood pressure 140/59, pulse of 96%, 2 liters. HEENT: Moist mucous membranes. NECK: Supple. No JVD. CARDIOPULMONARY: S1 and S2. LUNGS: Have a few scattered rhonchi. ABDOMEN: Soft, nontender. No organomegaly. EXTREMITIES: No edema. NEUROLOGIC: Awake and follows simple command. LABORATORY DATA: Reviewed and noted. No new lab is available since yesterday. MEDICATIONS: She is on Ambien 5 mg at bedtime, p.r.n., Brovana inhaled twice a day, Dilaudid 0.24 mg IV every 4 hours, p.r.n., vitamin D 50,000 units every 7 days, Lamictal 20 mg twice a day, lidocaine patch daily, Lovenox 40 mg subcutaneously daily, Nicoderm patch daily, Pepcid 20 mg at bedtime, Pulmicort inhaled twice a day, Robitussin DM 30 mL every 4 hours p.r.n., Tegretol 200 mg three times a day, Tylenol on p.r.n. basis. ASSESSMENT AND PLAN: Status post fall with pubic rami fracture, chronic obstructive lung disease, history of lung cancer resected of the left lung, now has a new tumor on the right lower lung area, pulmonary hypertension, seizure disorder, history of rib fractures. Pulmonary point of view, continue bronchodilator. Keep head at 45 degrees. Hopefully, we will get a lung biopsy on Tuesday. Gastric prophylaxis, deep venous thrombosis prophylaxis, pain management. Continue therapy. We will follow with you. Carol Zuñiga MD
--- NOTE | 2018-11-14 21:31 | PN ---
DATE: 11/14/2018 SUBJECTIVE: The patient is a 68-year-old female. The patient was seen and examined at bedside on 11/14/2018. Looking comfortable. Left hip pain is little bit better. No fever. No chills. No hematuria or hematochezia. Getting physical therapy. Sleep is okay. Appetite is okay. PHYSICAL EXAMINATION: VITAL SIGNS: Temperature 97.5, pulse 64, blood pressure 140/59, and respiratory rate 18. HEENT: Head is normocephalic and atraumatic. Eyes PERRLA. Extraocular muscles intact. Conjunctivae clear. Nose patent. Mucous membranes moist. NECK: Supple. No carotid bruits. No JVD or thyromegaly. CHEST: Bilaterally symmetrical. HEART: S1 and S2 positive. LUNGS: Clear to auscultation. ABDOMEN: Soft. Bowel sounds present. No organomegaly. EXTREMITIES: No edema. No cyanosis. NEUROLOGIC: The patient is awake and alert. Moving all four extremities. No focal deficits. MEDICATIONS: Ambien, Brovana, Dilaudid, vitamin D, Lamictal, Lidoderm, Lovenox, NicoDerm, Pepcid, Pulmicort, Robitussin, Tegretol, Tylenol. LABORATORY DATA: We do not have recent lab today, but I have reviewed old labs. ASSESSMENT AND PLAN: Ms. Leann Helm is a 68-year-old female with anemia, history of hyperkalemia. We will repeat that. Renal insufficiency. Has multiple medical problems. Status post fall with pubic fracture; chronic obstructive lung disease; lung cancer, resected, had wedge resection earlier this year; now has right lung mass; history of pulmonary hypertension; seizure disorder, stable; rib fracture, right-sided eighth and ninth. Dr. Homero Barton is on the case, awaiting for biopsy. Continue gastric and deep venous thrombosis prophylaxis. The patient is getting physical therapy, pain management. Getting nicotine patch. Repeat labs. We will follow up. Carley Luciano MD
[2018-11-15] MEDS: Enoxaparin 40 mg Syringe SC SCH (05:54)
[2018-11-15 06:25] LABS: HEMOGLOBIN 10.2 g/dL (12.0-16.0); MEAN CELL VOLUME 91.6 fl (80.0-105.0); MEAN CORPUSCULAR HEMOGLOBIN 28.6 pg (25.0-35.0); MEAN CORPUSCULAR HGB CONC 31.2 g/dl (31.0-37.0); MEAN PLATELET VOLUME 8.5 fl (7.0-11.0); RBC 3.57 10^6/uL (3.5-6.1); RED CELL DISTRIBUTION WIDTH 13.9 % (11.5-14.5); WHITE BLOOD COUNT 8.5 10^3/uL (4.5-11.0)
[2018-11-15 06:44] LABS: BLOOD UREA NITROGEN 32 mg/dL (7-21); CALCIUM 9.4 mg/dL (8.4-10.5); GFR NON-AFRICAN AMERICAN > 60
[2018-11-15] MEDS: Budesonide 0.5 mg/2 ml Inhal Susp UD IH SCH ×2 (08:37→20:10)
[2018-11-15] MEDS: Arformoterol 15 mcg/2 ml Inh Sol IH SCH ×2 (08:37→20:10)
[2018-11-15 09:56] VITALS: BP 132/67; PULSE 82; RESP 18; TEMP 97.4; O2SAT 94
--- NOTE | 2018-11-15 09:57 | PN ---
DATE: 11/13/2018 SUBJECTIVE: The patient is a 68-year-old female. The patient was seen and examined at the bedside on 11/13/2018, looking comfortable. No fever. No chills. No nausea, vomiting, or diarrhea. No hematuria or hematochezia. Leg pain is better. No chest pain. PHYSICAL EXAMINATION: VITAL SIGNS: Blood pressure 123/55, pulse 84, temperature 98, and oxygen saturation 90%. HEENT: Head; normocephalic and atraumatic. Eyes; PERRLA. Extraocular muscles are intact. Conjunctivae clear. Nose patent. NECK: Supple. No carotid bruit, JVD or thyromegaly. LUNGS: Clear to auscultation. HEART: S1 and S2 positive. ABDOMEN: Soft. Bowel sounds present. No organomegaly. EXTREMITIES: No edema. No cyanosis. NEUROLOGICAL: The patient is awake and alert. Moving all 4 extremities. MEDICATIONS: Tylenol, Brovana, Pulmicort, Tegretol, Lovenox, Pepcid, Robitussin, Dilaudid, Lamictal, Lidoderm, and nicotine. ASSESSMENT AND PLAN: is a 68-year-old lady with history of heavy smoking; history of left-sided lung cancer and history of surgery; on the right side, she has new lesion, awaiting for Dr. Homero Barton for biopsy, status post fall, pubic fracture; chronic obstructive lung disease; history of pulmonary hypertension; seizure disorder; and rib fracture 8 and 9 of the right side. Continue gastrointestinal and deep venous thrombosis prophylaxes. Getting physical therapy. Sleep is better. Repeat labs. We will follow up. Carley Luciano MD [facility]
[2018-11-15] MEDS: Lidocaine 5% Patch TD SCH (10:25)
--- NOTE | 2018-11-15 14:44 | PN ---
DATE: 11/15/2018 PULMONARY PROGRESS NOTE REFERRING PHYSICIAN: Carley Luciano MD SUBJECTIVE: The patient is sitting up in bed, watching television. No acute distress. No overnight events reported. Reports that cough is better. No headaches, rhinitis, shortness of breath, chest pain, abdominal pain, nausea, vomiting, diarrhea, leg pain or leg swelling reported. OBJECTIVE GENERAL: No acute distress. VITAL SIGNS: Blood pressure 132/67, pulse 82, temperature 97.4, and oxygen saturation 94%. HEENT: Moist mucous membranes. NECK: Supple. No JVD. LUNGS: Scattered rhonchi bilaterally. CARDIOVASCULAR: S1 and S2 audible. ABDOMEN: Soft and nontender. No distention. No organomegaly. EXTREMITIES: No bilateral lower extremity edema. NEUROLOGIC: Awake, alert and verbal. Follows commands. MEDICATIONS: Reviewed. Tylenol 650 every 6 hours p.r.n., Brovana 15 mcg every 12 hours, Pulmicort 0.5 mg every 12 hours, Tegretol 200 mg 3 times a day, Lovenox 40 mg subcutaneous daily, ergocalciferol 50,000 units every 7 days, Pepcid 20 mg at bedtime, Robitussin DM 5 mL every 4 hours p.r.n., Dilaudid 0.25 mg IV push every 4 hours p.r.n., Lamictal 200 mg twice a day, Lidoderm one patch topically daily, nicotine patch one patch topically daily and Ambien 5 mg at bedtime p.r.n. LABORATORY DATA: Reviewed. WBC 8.5, RBC 3.57, hemoglobin 10, hematocrit 32.7, and platelets 638. Sodium 136, potassium 5.0, chloride 99, carbon dioxide 33, anion gap 10, BUN 32, creatinine 0.8, GFR greater than 60, random glucose 106 and calcium 9.4. IMPRESSION AND PLAN: Status post fall with pubic rami fracture, right eighth and ninth rib fracture, chronic obstructive lung disease, history of lung cancer with resection of left lung, has new tumor on the right lower lobe of the right lung, pulmonary hypertension, seizure disorder. Pulmonary point of view; continue bronchodilators, keep head of bed elevated at 45 degrees. Pending lung biopsy with Dr. Barton. Gastric prophylaxis, deep venous thrombosis prophylaxis and pain management. Continue therapy. This patient was seen with Dr. Zuñiga. Discussed assessment and plan as described above. Thank you for this consult. We will follow with you. Chidi Wilhelm APN Carol Zuñiga MD
[2018-11-16] MEDS: Enoxaparin 40 mg Syringe SC SCH (05:43)
[2018-11-16] MEDS: Arformoterol 15 mcg/2 ml Inh Sol IH SCH (07:27)
[2018-11-16] MEDS: Budesonide 0.5 mg/2 ml Inhal Susp UD IH SCH (07:28)
[2018-11-16] MEDS: Lidocaine 5% Patch TD SCH (09:39)
--- NOTE | 2018-11-16 10:37 | PN ---
DATE: 11/16/2018 PULMONARY PROGRESS NOTE REFERRING PHYSICIAN: Dr. Carley Luciano. SUBJECTIVE: The patient sitting up in bed. No acute distress. Reports feeling well today. No overnight events reported. No headache, rhinitis, shortness of breath, cough, chest pain, abdominal pain, nausea, vomiting, diarrhea, leg pain, or leg swelling reported. OBJECTIVE: GENERAL: No acute distress. VITAL SIGNS: Blood pressure 132/63, pulse 82, temperature 97.4 and oxygen saturation 94%. HEENT: Moist mucous membranes. NECK: Supple. No JVD. LUNGS: Scattered rhonchi bilaterally. CARDIOVASCULAR: S1 and S2, audible. ABDOMEN: Soft and nontender. No distention. No organomegaly. EXTREMITIES: No bilateral lower extremity edema. NEUROLOGICAL: Awake, alert and verbal. Follows commands. MEDICATIONS: Reviewed. Tylenol 650 every 6 hours p.r.n., Brovana 15 mcg every 12 hours, Pulmicort 0.5 mg inhalation every 12 hours, Tegretol 200 mg three times a day, ergocalciferol 50,000 units every 7 days, Pepcid 20 mg at bedtime, Robitussin DM 5 mL every 4 hours p.r.n., Dilaudid 0.25 mg IV push every 4 hours p.r.n., Lamictal 200 mg twice a day, Lidocaine patch topically daily, nicotine patch topically daily and Ambien 5 mg at bedtime p.r.n. LABORATORY DATA: Reviewed. No new labs since yesterday. IMPRESSION AND PLAN: Status post fall with pubic rami fracture, right eighth and ninth rib fracture, chronic obstructive lung disease, history of lung cancer with resection of left lung, has new tumor on the right lower lobe, pulmonary hypertension and seizure disorder. Pulmonary point of view; continue bronchodilators, keep head of bed elevated at 45 degrees. Gastric prophylaxis, deep venous thrombosis prophylaxis and pain management. The patient has pending lung biopsy with Dr. Barton as outpatient. This patient was seen and examined with Dr. Zuñiga. Discussed assessment and plan as described above. Thank you for this consult. We will follow with you. Chidi Prudence, UNIT MANAGER [employer] Carol Zuñiga MD [facility] # [id number] VIMAL
--- NOTE | 2018-11-17 13:50 | PN ---
DATE: 11/15/2018 SUBJECTIVE: The patient is 68-year-old female. The patient was seen and examined at the bedside on 11/15/2018, sitting on the chair. Did physical therapy. Is looking better. No fever. No chills. No hematochezia. No headache or dizziness. No chest pain or palpitation. PHYSICAL EXAMINATION: VITAL SIGNS: Blood pressure 130/67, pulse 82, temperature 97.5, oxygen saturation 94%. HEENT: Head normocephalic and atraumatic. Eyes PERRLA. Extraocular muscles intact. Conjunctivae clear. Nose patent. Mucous membranes moist. NECK: Supple. No carotid bruit, JVD or thyromegaly. LUNGS: Scattered rhonchi bilaterally. HEART: S1, S2 positive. ABDOMEN: Soft. Bowel sounds present. No organomegaly. EXTREMITIES: No edema. No cyanosis. NEUROLOGIC: The patient is awake, alert, moving all four extremities. No focal deficits. MEDICATIONS: Tylenol, Brovana, Pulmicort, Tegretol, Lovenox, ergocalciferol, Pepcid, Robitussin, Dilaudid, Lamictal, Lidoderm, nicotine patch, Ambien. LABORATORY DATA: White blood cell is 8.5, hemoglobin 10, hematocrit 32.7, platelets 338. Sodium 136, potassium 5, BUN 32, creatinine 0.8, glucose 106. ASSESSMENT AND PLAN: The patient is a 68-year-old lady with multiple medical problems status post fall, pubic rami fracture; history of heavy smoking; due to fall right eight and ninth rib fractures; chronic disease; history of lung cancer, resection of the left lung upper lobe; history of left shoulder fracture; now she had no tumor on the lower lobe of the right lung, waiting for biopsy. Dr. Homero Barton was on the consult for long time. Pulmonary hypertension and seizure disorder stable. Continue bronchodilators. Waiting for lung biopsy. Gastrointestinal and deep venous thrombosis prophylaxis. Getting physical therapy and pain management. Improving slowly. We will follow up. Carley Luciano MD [facility]
== END 2018-11-16 16:05 | disposition home or self-care (01) | DRG 536 ==
LOC: TRCU 16:45
PROVIDERS: ADMIT Internal Medicine; ATTEND Internal Medicine
PROC: F07Z9FZ Gait Training/Functional Ambulation Treatment using Assistive, Adaptive, Supportive or Protective Equipment (ICD-10-PCS; principal; 2018-11-08)
PROC: F07M6ZZ Therapeutic Exercise Treatment of Musculoskeletal System - Whole Body (ICD-10-PCS; 2018-11-08)
PROC: F08Z2ZZ Grooming/Personal Hygiene Treatment (ICD-10-PCS; 2018-11-08)
PROC: F08Z0ZZ Bathing/Showering Techniques Treatment (ICD-10-PCS; 2018-11-08)
PROC: F08Z4ZZ Home Management Treatment (ICD-10-PCS; 2018-11-08)
DX: S32.591A Other specified fracture of right pubis, initial encounter for closed fracture (principal); S22.41XA Multiple fractures of ribs, right side, initial encounter for closed fracture; I10 Essential (primary) hypertension; I27.20 Pulmonary hypertension, unspecified; J44.9 Chronic obstructive pulmonary disease, unspecified; N28.9 Disorder of kidney and ureter, unspecified; G40.909 Epilepsy, unspecified, not intractable, without status epilepticus; Z85.118 Personal history of other malignant neoplasm of bronchus and lung; Z87.81 Personal history of (healed) traumatic fracture; D64.9 Anemia, unspecified; F17.200 Nicotine dependence, unspecified, uncomplicated; F41.9 Anxiety disorder, unspecified; G47.00 Insomnia, unspecified; W01.0XXA Fall on same level from slipping, tripping and stumbling without subsequent striking against object, initial encounter; Y92.009 Unspecified place in unspecified non-institutional (private) residence as the place of occurrence of the external cause; Z91.81 History of falling; R91.8 Other nonspecific abnormal finding of lung field

== ENCOUNTER 2018-12-06 09:09 | Day surgery (SDC) | payer MEDICARE, BC ==
[2018-11-27 11:58] VITALS: BMI 14.7
[2018-12-06 09:56] LABS: BASO # 0.03 K/mm3 (0.0-2.0); BASO % 0.4 % (0.0-3.0); EOS # 0.1 (0.0-0.7); GRAN # 4.83 (1.4-6.5); GRAN % 68.7 % (50.0-68.0); HEMOGLOBIN 12.9 g/dL (12.0-16.0); LYMPH # 1.8 (1.2-3.4); LYMPH % 25.1 % (22.0-35.0); MEAN CELL VOLUME 92.2 fl (80.0-105.0); MEAN CORPUSCULAR HEMOGLOBIN 29.6 pg (25.0-35.0); MEAN CORPUSCULAR HGB CONC 32.1 g/dl (31.0-37.0); MEAN PLATELET VOLUME 8.6 fl (7.0-11.0); MONO # 0.3 (0.1-0.6); MONO % 4.8 % (1.0-6.0); RBC 4.36 10^6/uL (3.5-6.1); RED CELL DISTRIBUTION WIDTH 14.6 % (11.5-14.5)
[2018-12-06 10:08] LABS: BLOOD UREA NITROGEN 22 mg/dL (7-21); CALCIUM 9.7 mg/dL (8.4-10.5); GFR NON-AFRICAN AMERICAN > 60
[2018-12-06 10:14] LABS: INR 1.04
[2018-12-06] MEDS ORDERED: Midazolam 2 MG/2 ML VIAL ONE (10:58)
[2018-12-06] MEDS ORDERED: Lidocaine 1% Inj (20ml) ONE (10:59)
[2018-12-06] MEDS ORDERED: Midazolam 2 MG/2 ML VIAL IVP ONE (11:30)
[2018-12-06] MEDS ORDERED: Oxycodone/Acetaminophen 5/325 mg Tab PO PRN (11:35)
[2018-12-06] MEDS ORDERED: Sodium Chloride 0.45% 1,000 ML IV SCH (11:45)
[2018-12-06 12:54] VITALS: BP 155/83; PULSE 73; RESP 18; TEMP 97.8; O2SAT 98
--- NOTE | 2018-12-06 13:34 | RAD ---
Date of service: 12/06/2018 HISTORY: RLL lung bx COMPARISON: 11/04/2018 FINDINGS: LUNGS: No active pulmonary disease. PLEURA: There is eventration of the left hemidiaphragm. CARDIOVASCULAR: Aortic calcification Normal cardiac size. No pulmonary vascular congestion. OSSEOUS STRUCTURES: No significant abnormalities. VISUALIZED UPPER ABDOMEN: Normal. OTHER FINDINGS: None. IMPRESSION: No active disease.
--- NOTE | 2018-12-06 19:06 | CT ---
PROCEDURE: CT guided right lower lobe lung biopsy. HISTORY: Previous lung CA. New 16 mm irregular right lower lobe mass. Evaluate for malignancy PHYSICIAN(S): Homero Barton MD. TECHNIQUE: The relative risks and indications of the procedure were explained to the patient and consent obtained. The patient was placed prone on the CT scanner and preliminary images through the mid lungs obtained. Conscious sedation and monitoring were provided throughout the procedure by a nurse. There is a 16 mm lobulated noncalcified mass contiguous with the posterior pleura in the right lower lobe. A right posterior oblique approach was selected and the area prepped and draped in the usual sterile fashion. 1% Xylocaine was used to anesthetize the skin and soft tissues. A 19 gauge guiding needle was advanced into the 16 mm right lower lobe mass. Its position was confirmed with CT. Using coaxial technique, multiple core biopsies were obtained. The postprocedure images show no evidence of large pneumothorax or significant hemorrhage.. IMPRESSION: 1. CT-guided right lower lobe peripheral biopsy as described above.
== END 2018-12-06 15:00 | disposition home or self-care (01) ==
LOC: SDS 09:09
PROVIDERS: ATTEND Radiology Vascular & Interventional Radiology
DX: J84.10 Pulmonary fibrosis, unspecified (principal); J43.9 Emphysema, unspecified; C34.12 Malignant neoplasm of upper lobe, left bronchus or lung
CPT/HCPCS: 32405; 36415; 71045; 77012; 80048; 85025; 85610; 85730; 88305; J2250; J2405; J3010; J7030

== ENCOUNTER 2018-12-15 05:31 | Outpatient (CLI) | payer MEDICARE, BC | END 2018-12-15 05:32 | disposition home or self-care (01) | LOC: PET-BROA 05:31 ==